=== PATIENT | male | born 1960 | race Caucasian/White ===

== ENCOUNTER 2017-07-01 07:18 | Emergency (ER) | payer MEDICAID ==
--- NOTE | 2017-07-01 08:19 | EKG REPORT ---
SEVERITY:- ABNORMAL ECG - ATRIAL-SENSED VENTRICULAR-PACED COMPLEXES MINIMAL ST DEPRESSION : Confirmed by: Zachery Mejia MD 01-Jul-2017 08:18:12
[2017-07-01 08:57] LABS: HEMATOCRIT 41.5 % (37.9-51.0); HEMOGLOBIN 14.2 g/dL (13.5-17.0); HGB HCT DIFFERENCE 1.1; MEAN CORPUSCULAR HEMOGLOBIN 31.6 pg (27.0-33.4); MEAN CORPUSCULAR HGB CONC 34.2 g/dL (32.0-36.0); MEAN CORPUSCULAR VOLUME 92 fl (80-97); RED BLOOD COUNT 4.49 10^6/uL (4.35-5.55); WHITE BLOOD COUNT 15.9 10^3/uL (4.0-10.5)
[2017-07-01 09:03] LABS: PROTHROMBIN TIME 20.7 SEC (11.4-15.4)
[2017-07-01 09:04] LABS: PARTIAL THROMBOPLASTIN TIME 31.1 SEC (23.5-35.8)
--- NOTE | 2017-07-01 09:11 | RADIOLOGY REPORT (SQ) ---
EXAM DESCRIPTION: WRIST RIGHT 3 VIEWS COMPLETED DATE/TIME: 07/01/2017 8:59 am REASON FOR STUDY: pain COMPARISON: None. NUMBER OF VIEWS: Three views. TECHNIQUE: AP, lateral, and oblique radiographic images acquired of the right wrist. LIMITATIONS: None. FINDINGS: MINERALIZATION: Normal. BONES: No acute fracture or dislocation. No worrisome bone lesions. Normal alignment. SOFT TISSUES: No soft tissue swelling. No foreign body. OTHER: No other significant finding. IMPRESSION: NEGATIVE STUDY OF THE RIGHT WRIST. NO RADIOGRAPHIC EVIDENCE OF ACUTE INJURY. TECHNICAL DOCUMENTATION: JOB ID: [id number] [employer]- All Rights Reserved
--- NOTE | 2017-07-01 09:12 | RADIOLOGY REPORT (SQ) ---
EXAM DESCRIPTION: CHEST PA/LAT COMPLETED DATE/TIME: 07/01/2017 8:59 am REASON FOR STUDY: swelling hx chf COMPARISON: December 2015 EXAM PARAMETERS: NUMBER OF VIEWS: two views TECHNIQUE: Digital Frontal and Lateral radiographic views of the chest acquired. RADIATION DOSE: NA LIMITATIONS: none FINDINGS: LUNGS AND PLEURA: No opacities, masses or pneumothorax. No pleural effusion. MEDIASTINUM AND HILAR STRUCTURES: No masses or contour abnormalities. HEART AND VASCULAR STRUCTURES: The configuration of the heart and mediastinal structures is unchanged BONES: No acute findings. HARDWARE: AICD device is unchanged in position. Patient is status post median sternotomy. OTHER: No other significant finding. IMPRESSION: No significant interval change. No acute findings. Other findings as noted above TECHNICAL DOCUMENTATION: JOB ID: [id number] [employer]- All Rights Reserved
[2017-07-01 09:14] LABS: ALANINE AMINOTRANSFERASE 29 U/L (21-72); ALKALINE PHOSPHATASE 88 U/L (38-126); ANION GAP 12 (5-19); ASPARTATE AMINO TRANSFERASE 18 U/L (17-59); BILIRUBIN,DIRECT 0.6 mg/dL (0.0-0.4); BILIRUBIN,TOTAL 1.5 mg/dL (0.2-1.3); BLOOD UREA NITROGEN 19 mg/dL (7-20); CALCIUM 9.3 mg/dL (8.4-10.2); CARBON DIOXIDE 29 mmol/L (22-30); CHLORIDE 98 mmol/L (98-107); CREATININE RESULT 0.92 mg/dL (0.52-1.25); GLUCOSE 175 mg/dL (75-110); LIPASE 59.2 U/L (23-300); POTASSIUM 3.8 mmol/L (3.6-5.0); SODIUM 138.7 mmol/L (137-145); TOTAL PROTEIN 6.5 g/dL (6.3-8.2); URIC ACID 8.8 mg/dL (3.5-8.5)
[2017-07-01 09:15] LABS: BAND NEUTROPHILS % (MANUAL) 2 % (3-5); BASOPHILS % (MANUAL) 0 % (0-2); EOSINOPHILS % (MANUAL) 0 % (0-6); LYMPHOCYTES % (MANUAL) 3 % (13-45); TOTAL CELLS COUNTED 100
[2017-07-01 09:17] LABS: ANISOCYTOSIS SLIGHT; HYPOCHROMASIA SLIGHT
[2017-07-01] MEDS ORDERED: ONDANSETRON HCL INJ/PF 4 MG/2 ML SDV IV ONE (10:42)
[2017-07-01] MEDS ORDERED: MORPHINE SULFATE 10 MG/ML INJ IV ONE (10:42)
[2017-07-01] MEDS ORDERED: DEXAMETHASONE SOD PHOS INJ 10 MG/1 ML VIAL IV ONE (10:44)
--- NOTE | 2017-07-01 11:10 | ER Document Report ---
ED General - General Chief Complaint: Pain All Over Stated Complaint: BODY SWELLING Time Seen by Provider: 07/01/17 07:58 TRAVEL OUTSIDE OF THE [place] IN LAST 30 DAYS: No - HPI Patient complains to provider of: Swelling right wrist pain Notes: Patient coming in stating that his body is swelling. Patient states a history of congestive heart failure. Patient states compliance with his medications. Patient also states having pain in his wrist. Patient states recently diagnosed with gout was on prednisone stopped approximately 1 week 2 weeks prior to visit today. Patient otherwise denies any other symptoms except for nausea vomiting diarrhea. Patient denies fevers chills denies chest pain abdominal pain. Patient denies any recent antibiotics denies any recent travel. Patient is resting comfortably upon my evaluation. - Related Data Allergies/Adverse Reactions: Penicillins Allergy (Verified 11/01/14 07:32) Past Medical History - Social History Smoking Status: Never Smoker Chew tobacco use (# tins/day): No Frequency of alcohol use: None Drug Abuse: None Family History: Hypertension, Malignancy Patient has suicidal ideation: No Patient has homicidal ideation: No - Past Medical History Cardiac Medical History: Reports: Hx Congestive Heart Failure, Hx Coronary Artery Disease, Hx Heart Attack, Hx Hypercholesterolemia, Hx Hypertension Neurological Medical History: Denies: Hx Seizures Endocrine Medical History: Reports: Hx Diabetes Mellitus Type 2 Renal/ Medical History: Denies: Hx Peritoneal Dialysis Musculoskeltal Medical History: Reports Hx Gout Psychiatric Medical History: Denies: Hx Depression Past Surgical History: Reports: Hx Cardiac Surgery - bypass, Hx Pacemaker - w/ defib - Immunizations Immunizations up to date: Yes Hx Diphtheria, Pertussis, Tetanus Vaccination: Yes Hx Pneumococcal Vaccination: 05/28/14 Review of Systems - Review of Systems Constitutional: No symptoms reported EENT: No symptoms reported Cardiovascular: Other - Swelling Respiratory: No symptoms reported Gastrointestinal: No symptoms reported Genitourinary: No symptoms reported Male Genitourinary: No symptoms reported Musculoskeletal: Other - Wrist pain Skin: No symptoms reported Hematologic/Lymphatic: No symptoms reported Neurological/Psychological: No symptoms reported Physical Exam - Vital signs Vitals: Temp Pulse Resp BP Pulse Ox 97.6 F 91 16 99/64 L 98 07/01/17 07:26 07/01/17 07:26 07/01/17 07:26 07/01/17 07:26 07/01/17 07:26 Interpretation: Normal - General General appearance: Appears well, Alert - HEENT Head: Normocephalic, Atraumatic Eyes: Normal Pupils: PERRL - Respiratory Respiratory status: No respiratory distress Chest status: Nontender Breath sounds: Normal Chest palpation: Normal - Cardiovascular Rhythm: Regular Heart sounds: Normal auscultation Murmur: No - Abdominal Inspection: Normal Distension: No distension Bowel sounds: Normal Tenderness: Nontender Organomegaly: No organomegaly - Back Back: Normal, Nontender - Extremities General upper extremity: Normal inspection, Nontender, Normal color, Normal ROM , Normal temperature General lower extremity: Normal inspection, Tender - Right wrist is extremely tender there is some swelling along the ulna no erythema left wrist is unaffected., Normal color, Normal ROM, Normal temperature, Normal weight bearing. No: Dion's sign - Neurological Neuro grossly intact: Yes Cognition: Normal Orientation: AAOx4 Mendez Coma Scale Eye Opening: Spontaneous Mendez Coma Scale Verbal: Oriented [place] Coma Scale Motor: Obeys Commands Mendez Coma Scale Total: 15 Speech: Normal Motor strength normal: LUE, RUE, LLE, RLE Sensory: Normal - Psychological Associated symptoms: Normal affect, Normal mood - Skin Skin Temperature: Warm Skin Moisture: Dry Skin Color: Normal Course - Re-evaluation Re-evalutation: 07/01/17 14:02 Lab work does not show any critical pathology. X-rays are also negative no signs of CHF exacerbation. Patient's weight today is approximately 2 pounds heavier than his previous weight. Explained the patient to continue to watch how much water he drinks to continue his diuretics. Uric acid is elevated slightly consistent with gout flare patient states pain in the wrist is consistent with gout in the past. Will treat with steroids and pain medication. Patient states understanding to follow-up with his primary care physician will be discharged home - Vital Signs Vital signs: Temp Pulse Resp BP Pulse Ox 97.8 F 88 18 124/65 98 07/01/17 11:47 07/01/17 11:47 07/01/17 11:47 07/01/17 11:47 07/01/17 11:47 - Laboratory Result Diagrams: 07/01/17 08:35 07/01/17 08:35 Laboratory results interpreted by me: 07/01/17 07/01/17 07/01/17 07:42 08:35 08:35 WBC 15.9 H RDW 15.0 H Seg Neuts % (Manual) 86 H Band Neutrophils % 2 L Lymphocytes % (Manual) 3 L Abs Neuts (Manual) 14.0 H PT Glucose 175 H POC Glucose 191 H Uric Acid 8.8 H Total Bilirubin 1.5 H Direct Bilirubin 0.6 H NT-Pro-B Natriuret Pep 07/01/17 07/01/17 08:35 08:35 WBC RDW Seg Neuts % (Manual) Band Neutrophils % Lymphocytes % (Manual) Abs Neuts (Manual) PT 20.7 H Glucose POC Glucose Uric Acid Total Bilirubin Direct Bilirubin NT-Pro-B Natriuret Pep 970 H Discharge - Discharge Clinical Impression: Subtherapeutic international normalized ratio (INR) Gout Qualifiers: Gout site: wrist Gout etiology: unspecified cause Chronicity: acute Laterality : right Qualified Code(s): M10.9 - Gout, unspecified Atrial fibrillation Qualifiers: Atrial fibrillation type: unspecified Qualified Code(s): I48.91 - Unspecified atrial fibrillation Condition: Good Disposition: HOME, SELF-CARE Instructions: Gout ([facility]), Gout Diet ([facility]), Oral Narcotic Medication ([facility]) Additional Instructions: Your laboratory studies today did not show any critical pathology. He did have elevation of uric acid more likely your wrist pain is due to gout flare. We will start you on steroids and pain medication follow-up with your primary care physician for further evaluation. Your INR today was 1.8. I will suggest tonight taking 7.5 mg of your Coumadin did continue on your regular dosing schedule. There is no signs of overt congestive heart failure on the laboratory studies are on your chest x-ray. You have gained approximately 2 pounds of weight since her last visit here to the ER. At this time do not think this is enough that I will require further diuresis or change of your torsemide. Prescriptions: Hydrocodone/Acetaminophen [Hydrocodon-Acetaminophen 5-325] 1 each PO Q6 #20 tablet Prednisone [Deltasone] 60 mg PO DAILY #24 tablet
[2017-07-01 11:49] VITALS: BP 124/65
== END 2017-07-01 11:49 | disposition home or self-care (01) ==
LOC: ER 07:18
DX: R79.1 Abnormal coagulation profile (principal); M10.9 Gout, unspecified; I48.91 Unspecified atrial fibrillation; M79.1 Myalgia; I50.9 Heart failure, unspecified; I25.10 Atherosclerotic heart disease of native coronary artery without angina pectoris; E78.00 Pure hypercholesterolemia, unspecified; I11.0 Hypertensive heart disease with heart failure; Z95.810 Presence of automatic (implantable) cardiac defibrillator; Z88.0 Allergy status to penicillin; I25.2 Old myocardial infarction
CPT/HCPCS: 93005; 99284; 96374; 96375; 36415; 82962; 83690; 84550; 85025; 85610; 85730; 80053; 84484; 83880; 71020; 73110; 93010; J2270; J2405; J1100

== ENCOUNTER → 2017-07-13 | Outpatient (CLI) | payer MEDICAID, MEDICARE ==
[2017-07-13 09:06] LABS: ABSOLUTE BASOPHILS # (AUTO) 0.1 10^3/uL (0.0-0.2); ABSOLUTE EOSINOPHILS # (AUTO) 0.1 10^3/uL (0.0-0.6); ABSOLUTE LYMPHOCYTES (AUTO) 1.6 10^3/uL (0.5-4.7); ABSOLUTE MONOCYTES (AUTO) 0.7 10^3/uL (0.1-1.4); ABSOLUTE NEUT (AUTO) 5.8 10^3/uL (1.7-8.2); BASOPHILS % (AUTO) 0.7 % (0-2); EOSINOPHILS % (AUTO) 1.6 % (0-6); HEMATOCRIT 38.4 % (37.9-51.0); HEMOGLOBIN 13.6 g/dL (13.5-17.0); HGB HCT DIFFERENCE 2.4; LYMPHOCYTES % (AUTO) 19.1 % (13-45); MEAN CORPUSCULAR HEMOGLOBIN 32.3 pg (27.0-33.4); MEAN CORPUSCULAR HGB CONC 35.4 g/dL (32.0-36.0); MEAN CORPUSCULAR VOLUME 91 fl (80-97); MONOCYTES % (AUTO) 8.7 % (3-13); RED BLOOD COUNT 4.21 10^6/uL (4.35-5.55); RED CELL DISTRIBUTION WIDTH 15.4 % (11.5-14.0); SEGMENTED NEUTROPHILS % (AUTO) 69.9 % (42-78); WHITE BLOOD COUNT 8.3 10^3/uL (4.0-10.5)
[2017-07-13 09:47] LABS: ALANINE AMINOTRANSFERASE 39 U/L (21-72); ALBUMIN 3.9 g/dL (3.5-5.0); ALKALINE PHOSPHATASE 79 U/L (38-126); ANION GAP 8 (5-19); ASPARTATE AMINO TRANSFERASE 16 U/L (17-59); BILIRUBIN,DIRECT 0.5 mg/dL (0.0-0.4); BLOOD UREA NITROGEN 22 mg/dL (7-20); CALCIUM 9.3 mg/dL (8.4-10.2); CARBON DIOXIDE 32 mmol/L (22-30); CHLORIDE 96 mmol/L (98-107); CREATINE KINASE 61 U/L (55-170); CREATININE RESULT 1.09 mg/dL (0.52-1.25); GLUCOSE 91 mg/dL (75-110); MAGNESIUM 1.8 mg/dL (1.6-2.3); PHOSPHORUS 2.6 mg/dL (2.5-4.5); POTASSIUM 3.6 mmol/L (3.6-5.0); SODIUM 135.6 mmol/L (137-145); TOTAL PROTEIN 6.3 g/dL (6.3-8.2); URIC ACID 12.4 mg/dL (3.5-8.5)
[2017-07-14 09:34] LABS: APPEARANCE,URINE CLEAR; BILIRUBIN,URINE NEGATIVE (NEGATIVE); GLUCOSE, URINE NEGATIVE (NEGATIVE); KETONES,URINE NEGATIVE (NEGATIVE); LEUKOCYTE ESTERASE,URINE NEGATIVE (NEGATIVE); NITRITE,URINE NEGATIVE (NEGATIVE); PROTEIN,URINE NEGATIVE (NEGATIVE); URINE SPECIFIC GRAVITY 1.003; UROBILINOGEN,URINE NEGATIVE mg/dL (<2.0)
== END ==
LOC: OD 08:20
PROVIDERS: ATTEND Internal Medicine Nephrology
DX: I12.9 Hypertensive chronic kidney disease with stage 1 through stage 4 chronic kidney disease, or unspecified chronic kidney disease (principal); N18.4 Chronic kidney disease, stage 4 (severe); E11.9 Type 2 diabetes mellitus without complications; I50.9 Heart failure, unspecified
CPT/HCPCS: 36415; 80053; 81001; 82550; 83735; 84100; 84443; 84550; 85025

== ENCOUNTER → 2017-08-02 | Outpatient (CLI) | payer MEDICAID, MEDICARE ==
[2017-08-02 09:38] LABS: ABSOLUTE EOSINOPHILS # (AUTO) 0.1 10^3/uL (0.0-0.6); ABSOLUTE LYMPHOCYTES (AUTO) 1.6 10^3/uL (0.5-4.7); ABSOLUTE MONOCYTES (AUTO) 0.9 10^3/uL (0.1-1.4); BASOPHILS % (AUTO) 0.6 % (0-2); EOSINOPHILS % (AUTO) 0.7 % (0-6); HEMATOCRIT 36.4 % (37.9-51.0); HEMOGLOBIN 12.8 g/dL (13.5-17.0); LYMPHOCYTES % (AUTO) 21.5 % (13-45); MEAN CORPUSCULAR HEMOGLOBIN 32.5 pg (27.0-33.4); MEAN CORPUSCULAR HGB CONC 35.3 g/dL (32.0-36.0); MEAN CORPUSCULAR VOLUME 92 fl (80-97); MONOCYTES % (AUTO) 11.7 % (3-13); RED BLOOD COUNT 3.96 10^6/uL (4.35-5.55); RED CELL DISTRIBUTION WIDTH 15.7 % (11.5-14.0); SEGMENTED NEUTROPHILS % (AUTO) 65.5 % (42-78); WHITE BLOOD COUNT 7.6 10^3/uL (4.0-10.5)
[2017-08-02 09:40] LABS: APPEARANCE,URINE CLEAR; BILIRUBIN,URINE NEGATIVE (NEGATIVE); GLUCOSE, URINE NEGATIVE (NEGATIVE); KETONES,URINE NEGATIVE (NEGATIVE); LEUKOCYTE ESTERASE,URINE NEGATIVE (NEGATIVE); NITRITE,URINE NEGATIVE (NEGATIVE); PROTEIN,URINE NEGATIVE (NEGATIVE); URINE SPECIFIC GRAVITY 1.004; UROBILINOGEN,URINE NEGATIVE mg/dL (<2.0)
[2017-08-02 10:05] LABS: ALANINE AMINOTRANSFERASE 42 U/L (21-72); ALBUMIN 4.4 g/dL (3.5-5.0); ALKALINE PHOSPHATASE 57 U/L (38-126); ANION GAP 15 (5-19); ASPARTATE AMINO TRANSFERASE 21 U/L (17-59); BILIRUBIN,DIRECT 0.5 mg/dL (0.0-0.4); BILIRUBIN,TOTAL 0.8 mg/dL (0.2-1.3); BLOOD UREA NITROGEN 23 mg/dL (7-20); CALCIUM 9.2 mg/dL (8.4-10.2); CARBON DIOXIDE 33 mmol/L (22-30); CHLORIDE 98 mmol/L (98-107); CREATINE KINASE 32 U/L (55-170); CREATININE RESULT 1.09 mg/dL (0.52-1.25); GLUCOSE 65 mg/dL (75-110); MAGNESIUM 1.6 mg/dL (1.6-2.3); PHOSPHORUS 3.8 mg/dL (2.5-4.5); POTASSIUM 4.1 mmol/L (3.6-5.0); SODIUM 145.8 mmol/L (137-145)
== END ==
LOC: OD 07:47
PROVIDERS: ATTEND Internal Medicine Nephrology
DX: E11.22 Type 2 diabetes mellitus with diabetic chronic kidney disease (principal); I12.0 Hypertensive chronic kidney disease with stage 5 chronic kidney disease or end stage renal disease; N18.4 Chronic kidney disease, stage 4 (severe); I50.9 Heart failure, unspecified; I72.0 Aneurysm of carotid artery
CPT/HCPCS: 36415; 80053; 81001; 82550; 83735; 83970; 84100; 84443; 84550; 85025

== ENCOUNTER 2017-11-20 09:55 | Inpatient (IN) | payer MEDICARE ==
[2017-11-20] MEDS ORDERED: BENZONATATE 100 MG CAPSULE PO ONE (10:18)
[2017-11-20] MEDS ORDERED: ALBUTEROL SULFATE 0.083% NEB 2.5 MG/3 ML AMPUL NEB ONE (10:19)
--- NOTE | 2017-11-20 10:19 | ER Document Report ---
ED General - General Mode of Arrival: Ambulatory Information source: Patient TRAVEL OUTSIDE OF THE [place] 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 Patient also complains of flu like symptoms including nausea, vomiting, decreased appetite, cough, dizziness, fatigue and abdominal pain. Patient states these symptoms were onset 2 weeks ago and he has been taking over the counter Tamiflu. Patient denies fever, chest pain, or shortness of breath. Patient is currently prescribed Coumadin, Digoxin, and Metoprolol and 10 mg of his unspecified thyroid medication. (DARRIN JIMÉNEZ) - Related Data Allergies/Adverse Reactions: Penicillins Allergy (Verified 11/01/14 07:32) Past Medical History - General Information source: Patient - Social History Smoking Status: Former Smoker Cigarette use (# per day): No Chew tobacco use (# tins/day): No Smoking Education Provided: No Frequency of alcohol use: Occasional Drug Abuse: None Family History: Hypertension, Malignancy - Past Medical History Cardiac Medical History: Reports: Hx Congestive Heart Failure, Hx Coronary Artery Disease, Hx Heart Attack, Hx Hypercholesterolemia, Hx Hypertension Endocrine Medical History: Reports: Hx Diabetes Mellitus Type 2 Musculoskeltal Medical History: Reports Hx Gout Past Surgical History: Reports: Hx Cardiac Surgery - bypass, Hx Pacemaker - w/ defib - Immunizations Immunizations up to date: Yes Hx Diphtheria, Pertussis, Tetanus Vaccination: Yes Hx Pneumococcal Vaccination: 05/28/14 <DARRIN JIMÉNEZ - Last Filed: 11/20/17 18:55> Review of Systems - Review of Systems Constitutional: See HPI, Weakness EENT: No symptoms reported Cardiovascular: See HPI, Dizziness Respiratory: See HPI, Cough Gastrointestinal: See HPI, Nausea, Vomiting, Poor appetite Genitourinary: No symptoms reported Male Genitourinary: No symptoms reported Musculoskeletal: No symptoms reported Skin: No symptoms reported Hematologic/Lymphatic: No symptoms reported Neurological/Psychological: No symptoms reported -: Yes All other systems reviewed and negative <TINOJIMFELTON - Last Filed: 11/20/17 18:55> Physical Exam <DARRIN JIMÉNEZ - Last Filed: 11/20/17 18:55> <ARIE WOODALL - Last Filed: 11/20/17 18:57> - Vital signs Vitals: Temp Pulse Resp BP Pulse Ox 98.1 F 95 20 105/63 100 11/20/17 10:04 11/20/17 10:04 11/20/17 10:04 11/20/17 10:04 11/20/17 10:04 - Notes Notes: GENERAL: Alert, interacts well. No acute distress. HEAD: Normocephalic, atraumatic. EYES: Pupils equal, round, and reactive to light. Extraocular movements intact. ENT: Oral mucosa moist, tongue midline. NECK: Full range of motion. Supple. Trachea midline. LUNGS: Dry non-productive cough. Clear to auscultation bilaterally, no wheezes, rales, or rhonchi. No respiratory distress. HEART: Regular rate and rhythm. No murmurs, gallops, or rubs. ABDOMEN: Soft, Left sided tenderness to palpation. Non-distended. Bowel sounds present in all 4 quadrants. EXTREMITIES: Moves all 4 extremities spontaneously. No edema, radial and dorsalis pedis pulses 2/4 bilaterally. No cyanosis. NEUROLOGICAL: Alert and oriented x3. Normal speech. Patellar DTRs 2+ bilaterally. PSYCH: Normal affect, normal mood. SKIN: Warm, dry, normal turgor. No rashes or lesions noted. (TINODARRIN) Course - Laboratory Result Diagrams: 11/20/17 11:45 11/20/17 11:45 <DARRIN JIMÉNEZ - Last Filed: 11/20/17 18:55> - Laboratory Result Diagrams: 11/20/17 11:45 11/20/17 11:45 <ARIE WOODALL - Last Filed: 11/20/17 18:57> - Re-evaluation Re-evalutation: 11/20/17 13:09 Still has persistently low blood pressure, still only has some mild nausea but is not altered. Able to interact well. Patient will be given more fluids, awaiting thyroid function studies and digoxin level. There is acute renal failure. 11/20/17 15:59 CBC shows leukocytosis of 12.4, no anemia, platelet count is normal, CMP shows acute renal failure with a BUN of 41 and creatinine of 2.28, thyroid functions are still pending, digoxin is therapeutic at 1.85, PT, PTT and INR are all too high to measure. This is likely coming from his acute renal failure. I do not have a source for his acute renal failure at this time. Given how markedly elevated the patient's INR is patient will be given vitamin K 10 mg and also given FFP to try and reverse him a little bit more quickly. I did discuss the patient with with Dr. Perdomo the hospitalist who agrees to admit the patient to her service on the IMCU. I do not know why the patient is hypotensive, I suspect at this time it is because his acute renal failure is keeping him from appropriately processing his blood pressure medications. He does have a pacemaker and it is functioning appropriately, patient will be continued to be monitored. No evidence of active bleeding at this time. No suspicion for acute intra-abdominal process. Patient actually states that his abdominal pain that he used to have when coughing is now better. Tessalon Perles and breathing treatment did not improve his cough is all. Patient will be admitted to the hospital. I did discuss the patient with Dr. 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 11/20/17 18:56 (ARIE WOODALL) - Vital Signs Vital signs: Temp Pulse Resp BP Pulse Ox 98.1 F 90 15 98/84 L 100 11/20/17 18:30 11/20/17 18:46 11/20/17 18:46 11/20/17 18:46 11/20/17 18:46 - Laboratory Laboratory results interpreted by me: 11/20/17 11/20/17 11/20/17 11:45 11:45 14:23 WBC 12.4 H RDW 16.0 H Seg Neutrophils % 78.8 H Lymphocytes % 8.4 L Absolute Neutrophils 9.8 H PT > 120.0 H* APTT > 235.0 H* Sodium 134.6 L Chloride 97 L BUN 41 H Creatinine 2.28 H Est GFR ( Amer) 36 L Est GFR (Non-Af Amer) 30 L Glucose 122 H Total Bilirubin 1.5 H Direct Bilirubin 1.1 H ALT 12 L - EKG Interpretation by Me Additional EKG results interpreted by me: 11/20/17 18:56 EKG shows paced rhythm at a rate of 81, no ST segment elevations, no significant ST segment depressions, ventricular delay consistent with ventricular single ventricle pace maker per my interpretation. (ARIE WOODALL) Discharge <DARRIN JIMÉNEZ - Last Filed: 11/20/17 18:55> - Discharge Admitting Provider: Hospitalist - [facility] Unit Admitted: IMCU <ARIE WOODALL - Last Filed: 11/20/17 18:57> - Discharge Clinical Impression: Supratherapeutic INR Acute renal failure Qualifiers: Acute renal failure type: unspecified Qualified Code(s): N17.9 - Acute kidney failure, unspecified Hypotension Qualifiers: Hypotension type: unspecified hypotension type Qualified Code(s): I95.9 - Hypotension, unspecified Condition: Fair Disposition: ADMITTED INPATIENT Scribe Attestation: 11/20/17 18:57 I personally performed the services described in the documentation, reviewed and edited the documentation which was dictated to the scribe in my presence, and it accurately records my words and actions. (ARIE WOODALL) Scribe Documentation - Scribe Written by Erin:: Erin Ruiz, 11/20/2017 10:33 acting as scribe for :: Opal <DARRIN JIMÉNEZ - Last Filed: 11/20/17 18:55>
--- NOTE | 2017-11-20 10:42 | RADIOLOGY REPORT (SQ) ---
EXAM DESCRIPTION: CHEST PA/LAT COMPLETED DATE/TIME: 11/20/2017 10:32 am REASON FOR STUDY: cough, SOB COMPARISON: None. NUMBER OF VIEWS: Two view. TECHNIQUE: Frontal and lateral radiographic views of the chest acquired. LIMITATIONS: None. FINDINGS: LUNGS AND PLEURA: No opacities, masses or pneumothorax. No pleural effusion. MEDIASTINUM AND HILAR STRUCTURES: No masses. No contour abnormalities. HEART AND VASCULAR STRUCTURES: Heart normal in size and contour. No evidence for failure. BONES: No acute findings. HARDWARE: Hardware/support device(s) in appropriate and expected location. OTHER: No other significant finding. IMPRESSION: NO SIGNIFICANT RADIOGRAPHIC FINDING IN THE CHEST. HARDWARE/SUPPORT DEVICE(S) IN APPROPRIATE AND EXPECTED LOCATION. TECHNICAL DOCUMENTATION: JOB ID: [id number] [employer]- All Rights Reserved
[2017-11-20] MEDS ORDERED: NORMAL SALINE 1000 ML 1,000 ML IV ONE ×2 (11:06→17:37)
[2017-11-20] MEDS ORDERED: ONDANSETRON 4 MG TAB.RAPDIS PO ONE (11:14)
[2017-11-20 11:58] LABS: ABSOLUTE BASOPHILS # (AUTO) 0.1 10^3/uL (0.0-0.2); ABSOLUTE EOSINOPHILS # (AUTO) 0.2 10^3/uL (0.0-0.6); ABSOLUTE MONOCYTES (AUTO) 1.3 10^3/uL (0.1-1.4); ABSOLUTE NEUT (AUTO) 9.8 10^3/uL (1.7-8.2); BASOPHILS % (AUTO) 0.6 % (0-2); EOSINOPHILS % (AUTO) 1.9 % (0-6); HEMATOCRIT 40.9 % (37.9-51.0); HEMOGLOBIN 13.8 g/dL (13.5-17.0); LYMPHOCYTES % (AUTO) 8.4 % (13-45); MEAN CORPUSCULAR HEMOGLOBIN 28.1 pg (27.0-33.4); MEAN CORPUSCULAR HGB CONC 33.7 g/dL (32.0-36.0); MEAN CORPUSCULAR VOLUME 83 fl (80-97); MONOCYTES % (AUTO) 10.3 % (3-13); PLATELET COUNT 249 10^3/uL (150-450); RED BLOOD COUNT 4.91 10^6/uL (4.35-5.55); SEGMENTED NEUTROPHILS % (AUTO) 78.8 % (42-78); TOTAL CELLS COUNTED % (AUTO) 100 %; WHITE BLOOD COUNT 12.4 10^3/uL (4.0-10.5)
[2017-11-20 12:31] LABS: ALANINE AMINOTRANSFERASE 12 U/L (21-72); ALBUMIN 3.7 g/dL (3.5-5.0); ALKALINE PHOSPHATASE 92 U/L (38-126); ANION GAP 11 (5-19); ASPARTATE AMINO TRANSFERASE 29 U/L (17-59); BILIRUBIN,DIRECT 1.1 mg/dL (0.0-0.4); BILIRUBIN,TOTAL 1.5 mg/dL (0.2-1.3); BLOOD UREA NITROGEN 41 mg/dL (7-20); CALCIUM 9.2 mg/dL (8.4-10.2); CARBON DIOXIDE 27 mmol/L (22-30); CHLORIDE 97 mmol/L (98-107); GLUCOSE 122 mg/dL (75-110); POTASSIUM 3.7 mmol/L (3.6-5.0); SODIUM 134.6 mmol/L (137-145); TOTAL PROTEIN 6.7 g/dL (6.3-8.2)
[2017-11-20 14:51] LABS: PARTIAL THROMBOPLASTIN TIME > 235.0 SEC (23.5-35.8); PROTHROMBIN TIME > 120.0 SEC (11.4-15.4)
[2017-11-20] MEDS ORDERED: PHYTONADIONE INJ 10 MG/1 ML AMPULE SUBCUT ONE (15:30)
[2017-11-20] MEDS ORDERED: NORMAL SALINE 250 ML IV PRN ×3 (15:30→16:01)
[2017-11-20 15:59] LABS: FREE T3 3.67 pg/mL (2.77-5.27); FREE T4 (FREE THYROXINE) 1.54 ng/dL (0.78-2.19); THYROID STIMULATING HORMONE 0.63 uIU/mL (0.47-4.68)
[2017-11-20] MEDS ORDERED: NORMAL SALINE 1000 ML 1,000 ML IV PRN (16:00)
[2017-11-20] MEDS ORDERED: DEXTROSE 50%-WATER 25 GM/50 ML DISP.SYRIN IV PRN ×2 (17:30)
[2017-11-20] MEDS ORDERED: GLUCAGON,HUMAN RECOMB 1 MG INJ IM PRN (17:30)
[2017-11-20] MEDS ORDERED: DEXTROSE 40% GEL 15 GM TUBE PO PRN ×2 (17:30)
[2017-11-20] MEDS ORDERED: IPRATROPIUM/ALBUTEROL 0.5-2.5 MG/3 ML AMPUL NEB PRN ×2 (17:30)
[2017-11-20] MEDS ORDERED: MIDODRINE HCL 5 MG TABLET PO ONE ×2 (17:38→19:00)
[2017-11-20] MEDS ORDERED: IPRATROPIUM/ALBUTEROL 0.5-2.5 MG/3 ML AMPUL NEB ONE (18:17)
[2017-11-20] MEDS ORDERED: GUAIFENESIN SYRP 200 MG/10 ML UDC PO ONE (18:48)
--- NOTE | 2017-11-20 18:58 | PDOC CONSULTATION ---
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 Patient also complains of flu like symptoms including nausea, vomiting, decreased appetite, cough, dizziness, fatigue and abdominal pain. Patient states these symptoms were onset 2 weeks ago and he has been taking over the counter Tamiflu. Patient denies fever, chest pain, or shortness of breath. Patient on questioning denied any chest pain. He denied any recent defibrillator discharges. Past Medical History Cardiac Medical History: Reports: Congestive Heart Failure, Coronary Artery Disease, Myocardial Infarction, Hyperlipidema, Hypertension Neurological Medical History: Denies: Seizures Endocrine Medical History: Reports: Diabetes Mellitus Type 2 Musculoskeltal Medical History: Reports: Gout Psychiatric Medical History: Denies: Depression Past Surgical History Past Surgical History: Reports: Pacemaker - w/ defib Social History Information Source: Patient Smoking Status: Former Smoker Frequency of Alcohol Use: None Hx Recreational Drug Use: No Hx Prescription Drug Abuse: No - Advance Directive Resuscitation Status: Full Code Family History Family History: Hypertension, Malignancy Parental Family History Reviewed: Yes Children Family History Reviewed: Yes Sibling(s) Family History Reviewed.: Yes Medication/Allergy Home Medications: Allopurinol [Zyloprim 300 mg Tablet] 300 mg PO QAM 11/20/17 Atorvastatin Calcium [Lipitor 80 mg Tablet] 80 mg PO QHS 11/20/17 Digoxin [Lanoxin 0.125 mg Tablet] 0.125 mg PO BID 11/20/17 Ergocalciferol (Vitamin D2) [Drisdol 50,000 unit (1.25MG) Capsule] 50,000 units PO SA 11/20/17 Famotidine [Pepcid 20 mg Tablet] 20 mg PO DAILY 11/20/17 Glipizide [Glucotrol Xl 5 mg Tab.er] 5 mg PO DAILY 11/20/17 Methimazole [Tapazole 5 mg Tablet] 10 mg PO DAILY 11/20/17 Metoprolol Succinate [Toprol XL 100 mg Tablet] 100 mg PO QAM 11/20/17 Metoprolol Succinate [Toprol Xl 50 mg Tab.sr] 50 mg PO QPM 11/20/17 Multivitamin [Daily Multiple Vitamin] 1 tab PO DAILY 11/20/17 Ranitidine HCl [Zantac 150 mg Tablet] 150 mg PO BID 11/20/17 Sacubitril/Valsartan [Entresto 97 mg-103 mg Tablet] 1 tab PO DAILY 11/20/17 Temazepam [Restoril 15 mg Capsule] 15 mg PO QHS 11/20/17 Torsemide [Demadex 20 mg Tablet] 40 mg PO BID 11/20/17 Warfarin Sodium [Coumadin 5 mg Tablet] 5 mg PO QPM 11/20/17 Allergies/Adverse Reactions: Penicillins Allergy (Verified 11/01/14 07:32) Review of Systems Review of Systems: Please see history of present illness and past medical history as wall. Constitutional: Fatigue tiredness along with low-grade fever or chills reported. Head : No recent chronic headaches, recent head injury. Eyes: No recent eye pain, diplopia, redness, discharge, acute visual changes. Ears: No recent chronic ear pain, acute hearing loss, ear discharge. Oral cavity: No recent ulcerations, bleeding, oral cavity discomfort. Neck: No recent acute neck pain reported. Hematologic: No recent easy bruising or bleeding or hematologic malignancy reported. Lymphatic: No recent lymphatic malignancy, chronic lymphadenopathy reported yet Cardiovascular system review: See history of present illness. Respiratory system review: No recent chronic cough, hemoptysis, blood clots in the lungs reported. Mild Shortness of breath on exertion Gastrointestinal system review: Negative for any recent acute or chronic abdominal pain, hematemesis, melena, recent change in bowel habits. Genitourinary system review: No recent acute or chronic hematuria, flank pain, UTI etc. reported. Skin system review: Negative for any recent abnormal bruising, no rash, no pruritus reported. Neurologic: No prior history of strokes, mini strokes, seizure disorder. Psychologic: No history of major psychosis or major depression reported. Musculoskeletal: Minor aches and pains reported. No acute joint swelling reported. Endocrine: No recent polyuria, polydipsia, recent heat or cold intolerance. Physical Exam Vital Signs: Temp Pulse Resp BP Pulse Ox 98.1 F 90 15 98/84 L 100 11/20/17 18:30 11/20/17 18:46 11/20/17 18:46 11/20/17 18:46 11/20/17 18:46 Intake & Output 11/19/17 11/20/17 11/21/17 06:59 06:59 06:59 Intake Total 0 Balance 0 Exam: GENERAL: well-nourished and in no acute distress. Alert and oriented x3 HEAD: Atraumatic, normocephalic. EYES: Pupils equal round and reactive to light, extraocular movements intact, sclera anicteric, conjunctiva are normal. ENT: TMs normal, nares patent, oropharynx clear without exudates. Moist mucous membranes. No oral ulcerations or bleeding gums noted NECK: supple without lymphadenopathy. Trachea is central. No cervical or axillary lymphadenopathy noted. Carotids are 2+, JVD WNL LUNGS: Respiration seems nonlabored, no significant accessory muscle action noted. Breath sounds clear to auscultation bilaterally and equal noted. No wheezes rales or rhonchi noted. No significant dullness noted on percussion. CHEST: Palpation of the chest wall shows no significant chest wall tenderness. No other significant abnormalities noted. Defibrillator noted left-sided chest. HEART: [place] [employer], No PSH, 1/6 ROCHELLE aortic area, 1/6 bach systolic murmur mitral area, no rubs, no gallops. ABDOMEN: Soft, no significant tenderness appreciated, normoactive bowel sounds. No guarding, no rebound. No rigidity noted . No masses appreciated. EXTREMITIES: Pedal pulses are 1-2+, no calf tenderness noted. No clubbing or cyanosis.trace to 1+ pedal edema noted NEUROLOGICAL: Focused neurological exam showed no significant neurologic deficit. Normal speech, no focal weakness appreciated. PSYCH: Normal mood, normal affect. Judgment and insight within normal limits. SKIN: No significant ecchymosis, rash, ulcerations or signs of pruritus noted. MUSCULOSKELETAL EXAM: No significant joint swelling noted. Results EKG Comments: Ventricular paced rhythm with underlying atrial fibrillation Impressions: Chest X-Ray 11/20/17 10:18 IMPRESSION: NO SIGNIFICANT RADIOGRAPHIC FINDING IN THE CHEST. HARDWARE/SUPPORT DEVICE(S) IN APPROPRIATE AND EXPECTED LOCATION. Assessment & Plan - Diagnosis (1) Hypotension (arterial) Qualifiers: Hypotension type: unspecified hypotension type Qualified Code(s): I95.9 - Hypotension, unspecified Is this a current diagnosis for this admission?: Yes (2) Atrial fibrillation Qualifiers: Atrial fibrillation type: unspecified Qualified Code(s): I48.91 - Unspecified atrial fibrillation Is this a current diagnosis for this admission?: Yes (3) Cardiomyopathy Qualifiers: Cardiomyopathy type: unspecified Qualified Code(s): I42.9 - Cardiomyopathy , unspecified Is this a current diagnosis for this admission?: Yes (4) Coronary artery disease Qualifiers: Coronary Disease-Associated Artery/Lesion type: [place] artery [place] vs. transplanted heart: grindstone heart Associated angina: angina presence unspecified Qualified Code(s): I25.10 - Atherosclerotic heart disease of [place] coronary artery without angina pectoris Is this a current diagnosis for this admission?: Yes (5) Sleep disorder Is this a current diagnosis for this admission?: Yes (6) Congestive heart failure Qualifiers: Heart failure type: combined systolic and diastolic Heart failure chronicity: acute on chronic Qualified Code(s): I50.43 - Acute on chronic combined systolic (congestive) and diastolic (congestive) heart failure Is this a current diagnosis for this admission?: Yes (7) Supratherapeutic INR Is this a current diagnosis for this admission?: Yes - Notes Notes: Patient has history of severe dilated cardiomyopathy with severely depressed LVEF. He currently has a biventricular defibrillator in place. Currently patient in atrial fibrillation which he claims is chronic. At this point patient main problem is low blood pressure. Patient seems to be tolerating this low blood pressure reasonably well. Agree with Midodrin drip. If needed, consider vasopressin drip and possibly dopamine drip. Would recommend ruling out internal bleed, sepsis etc. as cause of hypotension. Patient's home medication were reviewed. He seems to be on a very good regimen for cardiomyopathy which would need to be restarted as soon as feasible. Because of patient's severe underlying cardiac condition including severe cardiomyopathy and now presenting with hypotension, recommend tertiary care referral and transfer, especially if patient deteriorates. Patient claims his local clearance cutter is Dr. Colon from [place]. - Time Time Spent: 30 to 50 Minutes - CODE STATUS was discussed, patient remains full code. Surrogate decision-maker unchanged. Multiple medical problems were addressed. More than 50% of the time spent coordinating care, discussing management plans with involved caregivers. Management plans discussed with involved personnels. Medical decision making was of moderate to high complexity , patient's has multiple comorbidities. Medications reviewed and adjusted accordingly: Yes
[2017-11-20 19:43] LABS: CREATINE KINASE MB 1.42 ng/mL (<4.55)
[2017-11-20 19:50] LABS: TROPONIN I 0.064 ng/mL
[2017-11-20] MEDS ORDERED: HYDROCODONE BIT/HOMATROPINE SYRUP 5 ML UDCUP PO PRN (19:53)
[2017-11-20 20:27] LABS: INTERNATIONAL RATION (INR) 5.21
[2017-11-20] MEDS ORDERED: CHLORPHENIRAMINE MALEATE 4 MG TABLET PO ONE (21:30)
[2017-11-20 22:27] LABS: APPEARANCE,URINE SLIGHTLY-CLOUDY; BILIRUBIN,URINE NEGATIVE (NEGATIVE); COLOR,URINE AMBER; GLUCOSE, URINE NEGATIVE (NEGATIVE); KETONES,URINE NEGATIVE (NEGATIVE); LEUKOCYTE ESTERASE,URINE NEGATIVE (NEGATIVE); NITRITE,URINE NEGATIVE (NEGATIVE); PROTEIN,URINE 30 mg/dL (NEGATIVE); URINE SPECIFIC GRAVITY 1.015
[2017-11-20] MEDS ORDERED: CHLORPHENIRAMINE MALEATE 4 MG TABLET ONE (22:29)
[2017-11-20 22:39] LABS: URINE AMPHETAMINES SCREEN NEGATIVE; URINE BARBITURATES SCREEN NEGATIVE; URINE BENZODIAZEPINES SCREEN NEGATIVE; URINE COCAINE SCREEN NEGATIVE; URINE MARIJUANA (THC) SCREEN NEGATIVE; URINE METHADONE SCREEN NEGATIVE; URINE PHENCYCLIDINE SCREEN NEGATIVE
[2017-11-20] MEDS: DOCUSATE SODIUM 100 MG CAPSULE PO SCH (23:01)
[2017-11-20 23:41] LABS: ABSOLUTE BASOPHILS # (AUTO) 0.1 10^3/uL (0.0-0.2); ABSOLUTE EOSINOPHILS # (AUTO) 0.6 10^3/uL (0.0-0.6); ABSOLUTE LYMPHOCYTES (AUTO) 0.9 10^3/uL (0.5-4.7); ABSOLUTE NEUT (AUTO) 7.3 10^3/uL (1.7-8.2); BASOPHILS % (AUTO) 0.9 % (0-2); EOSINOPHILS % (AUTO) 6.6 % (0-6); HEMATOCRIT 34.6 % (37.9-51.0); HEMOGLOBIN 11.9 g/dL (13.5-17.0); LYMPHOCYTES % (AUTO) 8.7 % (13-45); MEAN CORPUSCULAR HEMOGLOBIN 28.8 pg (27.0-33.4); MEAN CORPUSCULAR HGB CONC 34.4 g/dL (32.0-36.0); MEAN CORPUSCULAR VOLUME 84 fl (80-97); MONOCYTES % (AUTO) 9.8 % (3-13); PLATELET COUNT 220 10^3/uL (150-450); RED BLOOD COUNT 4.13 10^6/uL (4.35-5.55); RED CELL DISTRIBUTION WIDTH 16.5 % (11.5-14.0); TOTAL CELLS COUNTED % (AUTO) 100 %; WHITE BLOOD COUNT 9.8 10^3/uL (4.0-10.5)
[2017-11-21] MEDS ORDERED: NORMAL SALINE 1000 ML 1,000 ML IV ONE (00:11)
[2017-11-21 00:36] LABS: CREATINE KINASE MB 1.31 ng/mL (<4.55); TROPONIN I 0.063 ng/mL
--- NOTE | 2017-11-21 02:09 | PDOC H&P ---
History of Present Illness Admission Date/PCP: 11/20/17 16:26 TRANG DE PAZ Patient complains of: Nausea History of Present Illness: Patient is a 57 year old male with a history of atrial fibrillation on Coumadin , remote coronary artery bypass grafting with permanent pacemaker, congestive heart failure with ejection fraction 25%, gout, diabetes and hypertension, who is had 7-10 days of influenza marked by fever, cough, nausea, vomiting, diarrhea and anorexia treated with Tamiflu. He also admits to a gouty flare of the left elbow for which she is taking additional allopurinol. He otherwise denies changes in his medications, chest pain or palpitations. In the emergency room he is found to have hypotension with a blood pressure of 80/40, pulse of 76, acute renal failure with creatinine 2.2, and supratherapeutic INR beyond measured levels. He receives a 1 L normal saline challenge and 2 units of FFP and referred to the hospitalist for admission. Past Medical History Cardiac Medical History: Reports: Congestive Heart Failure, Coronary Artery Disease, Myocardial Infarction, Hyperlipidema, Hypertension Neurological Medical History: Denies: Seizures Endocrine Medical History: Reports: Diabetes Mellitus Type 2 Musculoskeltal Medical History: Reports: Gout Psychiatric Medical History: Denies: Depression Past Surgical History Past Surgical History: Reports: Coronary Artery Bypass Graft, Pacemaker - w/ defib Social History Information Source: Patient Lives with: Family Smoking Status: Former Smoker Frequency of Alcohol Use: None Hx Recreational Drug Use: No Drugs: None Hx Prescription Drug Abuse: No - Advance Directive Resuscitation Status: Full Code Family History Family History: Hypertension, Malignancy Parental Family History Reviewed: Yes Children Family History Reviewed: Yes Sibling(s) Family History Reviewed.: Yes Medication/Allergy Home Medications: Allopurinol [Zyloprim 300 mg Tablet] 300 mg PO QAM 11/20/17 Atorvastatin Calcium [Lipitor 80 mg Tablet] 80 mg PO QHS 11/20/17 Digoxin [Lanoxin 0.125 mg Tablet] 0.125 mg PO BID 11/20/17 Ergocalciferol (Vitamin D2) [Drisdol 50,000 unit (1.25MG) Capsule] 50,000 units PO SA 11/20/17 Famotidine [Pepcid 20 mg Tablet] 20 mg PO DAILY 11/20/17 Glipizide [Glucotrol Xl 5 mg Tab.er] 5 mg PO DAILY 11/20/17 Methimazole [Tapazole 5 mg Tablet] 10 mg PO DAILY 11/20/17 Metoprolol Succinate [Toprol XL 100 mg Tablet] 100 mg PO QAM 11/20/17 Metoprolol Succinate [Toprol Xl 50 mg Tab.sr] 50 mg PO QPM 11/20/17 Multivitamin [Daily Multiple Vitamin] 1 tab PO DAILY 11/20/17 Ranitidine HCl [Zantac 150 mg Tablet] 150 mg PO BID 11/20/17 Sacubitril/Valsartan [Entresto 97 mg-103 mg Tablet] 1 tab PO DAILY 11/20/17 Temazepam [Restoril 15 mg Capsule] 15 mg PO QHS 11/20/17 Torsemide [Demadex 20 mg Tablet] 40 mg PO BID 11/20/17 Warfarin Sodium [Coumadin 5 mg Tablet] 5 mg PO QPM 11/20/17 Allergies/Adverse Reactions: Penicillins Allergy (Verified 11/01/14 07:32) Review of Systems Constitutional: PRESENT: as per HPI, anorexia, fatigue, fever(s), weakness, weight loss Eyes: ABSENT: visual disturbances Ears: ABSENT: hearing changes Cardiovascular: ABSENT: chest pain, dyspnea on exertion, edema, orthropnea, palpitations Respiratory: PRESENT: as per HPI, cough Gastrointestinal: PRESENT: diarrhea, nausea, vomiting. ABSENT: abdominal pain, constipation, hematemesis, hematochezia Genitourinary: ABSENT: dysuria, hematuria Musculoskeletal: PRESENT: as per HPI. ABSENT: joint swelling Integumentary: ABSENT: rash, wounds Neurological: ABSENT: abnormal gait, abnormal speech, confusion, dizziness, focal weakness, syncope Psychiatric: ABSENT: anxiety, depression, homidical ideation, suicidal ideation Endocrine: ABSENT: cold intolerance, heat intolerance, polydipsia, polyuria Hematologic/Lymphatic: PRESENT: easy bleeding, easy bruising Physical Exam Vital Signs: Temp Pulse Resp BP Pulse Ox 98.0 F 90 21 H 108/65 96 11/20/17 19:48 11/20/17 18:46 11/21/17 01:45 11/21/17 01:45 11/21/17 01:44 Intake & Output 11/19/17 11/20/17 11/21/17 11:59 11:59 11:59 Intake Total 266 Balance 266 Weight 90.718 kg General appearance: PRESENT: mild distress, obese Head exam: PRESENT: atraumatic, normocephalic Eye exam: PRESENT: conjunctiva pink, EOMI, PERRLA. ABSENT: scleral icterus Ear exam: PRESENT: normal external ear exam Mouth exam: PRESENT: dry mucosa, tongue midline Neck exam: ABSENT: carotid bruit, JVD, lymphadenopathy, thyromegaly Respiratory exam: PRESENT: clear to auscultation [place]. ABSENT: rales, rhonchi, wheezes Cardiovascular exam: PRESENT: RRR. ABSENT: diastolic murmur, rubs, systolic murmur Pulses: PRESENT: normal dorsalis pedis pul Vascular exam: PRESENT: normal capillary refill GI/Abdominal exam: PRESENT: normal bowel sounds, soft. ABSENT: distended, guarding, mass, organolmegaly, rebound, tenderness Rectal exam: PRESENT: deferred Extremities exam: PRESENT: full ROM. ABSENT: calf tenderness, clubbing, pedal edema Neurological exam: PRESENT: alert, awake, oriented to person, oriented to place , oriented to time, oriented to situation, CN II-XII grossly intact. ABSENT: motor sensory deficit Psychiatric exam: PRESENT: appropriate affect, normal mood. ABSENT: homicidal ideation, suicidal ideation Skin exam: PRESENT: dry, intact, warm. ABSENT: cyanosis, rash Results Laboratory Results: 11/20/17 23:25 11/20/17 11/20/17 11/20/17 18:30 22:12 23:25 WBC 9.8 RBC 4.13 L Hgb 11.9 L Hct 34.6 L MCV 84 MCH 28.8 MCHC 34.4 RDW 16.5 H Plt Count 220 Seg Neutrophils % 74.0 Lymphocytes % 8.7 L Monocytes % 9.8 Eosinophils % 6.6 H Basophils % 0.9 Absolute Neutrophils 7.3 Absolute Lymphocytes 0.9 Absolute Monocytes 1.0 Absolute Eosinophils 0.6 Absolute Basophils 0.1 Magnesium 1.8 Urine Color FARA Urine Appearance SLIGHTLY-CLOUDY Urine pH 5.0 Ur Specific [place] 1.015 Urine Protein 30 H Urine Glucose (UA) NEGATIVE Urine Ketones NEGATIVE Urine Blood NEGATIVE Urine Nitrite NEGATIVE Ur Leukocyte Esterase NEGATIVE Urine WBC (Auto) 10 Urine RBC (Auto) 1 11/20/17 11/20/17 11/20/17 18:30 18:30 23:25 Creatine Kinase 70 76 CK-MB (CK-2) 1.42 Troponin I 0.064 11/20/17 23:25 Creatine Kinase CK-MB (CK-2) 1.31 Troponin I 0.063 Impressions: Chest X-Ray 11/20/17 10:18 IMPRESSION: NO SIGNIFICANT RADIOGRAPHIC FINDING IN THE CHEST. HARDWARE/SUPPORT DEVICE(S) IN APPROPRIATE AND EXPECTED LOCATION. Assessment & Plan - Diagnosis (1) Hypotension Qualifiers: Hypotension type: unspecified hypotension type Qualified Code(s): I95.9 - Hypotension, unspecified Is this a current diagnosis for this admission?: Yes Plan: Secondary to acute viral illness and subsequent hypovolemia, IV fluid challenge followed by Midrin, consider Wesley-Synephrine. (2) Acute renal failure Qualifiers: Acute renal failure type: unspecified Qualified Code(s): N17.9 - Acute kidney failure, unspecified Is this a current diagnosis for this admission?: Yes Plan: Multifactorial secondary to hypovolemia and additional allopurinol which is held avoiding nephrotoxic meds and doses reevaluate chemistry (3) Atrial fibrillation Qualifiers: Atrial fibrillation type: unspecified Qualified Code(s): I48.91 - Unspecified atrial fibrillation Is this a current diagnosis for this admission?: Yes Plan: Rate controlled continue current medication holding Coumadin follow-up INR (4) Supratherapeutic INR Is this a current diagnosis for this admission?: Yes Plan: Secondary to acute viral illness with anorexia and ongoing Coumadin use. FFP ordered follow-up INR resume Coumadin when INR at 2.5 or less - Time Time Spent: 50 to 70 Minutes - Inpatient Certification Medical Necessity: Need Close Monitoring Due to Risk of Patient Decompensation
[2017-11-21] MEDS: MIDODRINE HCL 5 MG TABLET PO SCH ×3 (02:26→15:14)
[2017-11-21 05:50] LABS: ABSOLUTE BASOPHILS # (AUTO) 0.1 10^3/uL (0.0-0.2); ABSOLUTE EOSINOPHILS # (AUTO) 0.8 10^3/uL (0.0-0.6); ABSOLUTE LYMPHOCYTES (AUTO) 0.8 10^3/uL (0.5-4.7); ABSOLUTE MONOCYTES (AUTO) 0.8 10^3/uL (0.1-1.4); ABSOLUTE NEUT (AUTO) 5.7 10^3/uL (1.7-8.2); EOSINOPHILS % (AUTO) 10.3 % (0-6); HEMATOCRIT 33.9 % (37.9-51.0); HEMOGLOBIN 11.5 g/dL (13.5-17.0); LYMPHOCYTES % (AUTO) 9.3 % (13-45); MEAN CORPUSCULAR HEMOGLOBIN 28.7 pg (27.0-33.4); MEAN CORPUSCULAR HGB CONC 34.1 g/dL (32.0-36.0); MEAN CORPUSCULAR VOLUME 84 fl (80-97); MONOCYTES % (AUTO) 9.8 % (3-13); PLATELET COUNT 214 10^3/uL (150-450); RED BLOOD COUNT 4.02 10^6/uL (4.35-5.55); RED CELL DISTRIBUTION WIDTH 16.4 % (11.5-14.0); SEGMENTED NEUTROPHILS % (AUTO) 69.6 % (42-78); TOTAL CELLS COUNTED % (AUTO) 100 %; WHITE BLOOD COUNT 8.2 10^3/uL (4.0-10.5)
[2017-11-21 06:10] LABS: ANION GAP 10 (5-19); BLOOD UREA NITROGEN 29 mg/dL (7-20); CALCIUM 8.5 mg/dL (8.4-10.2); CARBON DIOXIDE 26 mmol/L (22-30); CHLORIDE 103 mmol/L (98-107); CREATINE KINASE 74 U/L (55-170); GLUCOSE 88 mg/dL (75-110); POTASSIUM 3.3 mmol/L (3.6-5.0); SODIUM 138.7 mmol/L (137-145)
[2017-11-21 06:17] LABS: CREATINE KINASE MB 1.33 ng/mL (<4.55); TROPONIN I 0.066 ng/mL
--- NOTE | 2017-11-21 09:26 | EKG REPORT ---
SEVERITY:- ABNORMAL ECG - VENTRICULAR-PACED COMPLEXES NONSPECIFIC INTRAVENTRICULAR CONDUCTION DELAY MINIMAL ST DEPRESSION : Confirmed by: Barry Barrow 21-Nov-2017 09:25:38
--- NOTE | 2017-11-21 09:26 | EKG REPORT ---
SEVERITY:- ABNORMAL ECG - VENTRICULAR-PACED COMPLEXES NONSPECIFIC INTRAVENTRICULAR CONDUCTION DELAY MINIMAL ST DEPRESSION, DIFFUSE LEADS : Confirmed by: Barry Barrow 21-Nov-2017 09:25:43
[2017-11-21] MEDS ORDERED: MIDODRINE HCL 5 MG TABLET PO SCH (10:00)
[2017-11-21] MEDS: DOCUSATE SODIUM 100 MG CAPSULE PO SCH ×2 (15:14→22:06)
[2017-11-21] MEDS: NORMAL SALINE 1000 ML 1,000 ML IV PRN (18:21)
--- NOTE | 2017-11-21 19:30 | PDOC PROGRESS REPORT ---
Subjective Progress Note for:: 11/21/17 Subjective:: Patient seems to be doing better with gradual improvement. Pt is denying any chest arm or neck discomfort. Patient denying any PND, orthopnea. Patient denied any sustained palpitations, dizziness, syncope, near syncope. Patient denying any fever chills. Patient denying any other significant discomfort. Patient is maintaining atrial fibrillation with ventricular paced beats Review of systems: Rest review of systems negative. Medications: Medications have been reviewed. Reason For Visit: ACUTE RENAL FAILURE,SUPRATHERAPEUTIC INTERNATIONAL Physical Exam Vital Signs: Temp Pulse Resp BP Pulse Ox 98.8 F 76 20 103/42 L 100 11/21/17 15:34 11/21/17 15:34 11/21/17 15:34 11/21/17 15:34 11/21/17 15:34 Intake & Output 11/20/17 11/21/17 11/22/17 06:59 06:59 06:59 Intake Total 476 400 Balance 476 400 Weight 90.718 kg 98.6 kg Exam: GENERAL: well-nourished and in no acute distress. Alert and oriented x3 HEAD: Atraumatic, normocephalic. EYES: Pupils equal round and reactive to light, extraocular movements intact, sclera anicteric, conjunctiva are normal. ENT: TMs normal, nares patent, oropharynx clear without exudates. Moist mucous membranes. No oral ulcerations or bleeding gums noted NECK: supple without lymphadenopathy. Trachea is central. No cervical or axillary lymphadenopathy noted. Carotids are 2+, JVD WNL LUNGS: Respiration seems nonlabored, no significant accessory muscle action noted. Breath sounds clear to auscultation bilaterally and equal noted. No wheezes rales or rhonchi noted. No significant dullness noted on percussion. CHEST: Palpation of the chest wall shows no significant chest wall tenderness. No other significant abnormalities noted. HEART: [employer], No PSH, 1/6 [place] aortic area, 1/6 bach systolic murmur mitral area, no rubs, no gallops. ABDOMEN: Soft, no significant tenderness appreciated, normoactive bowel sounds. No guarding, no rebound. No rigidity noted . No masses appreciated. EXTREMITIES: Pedal pulses are 1-2+, no calf tenderness noted. No clubbing or cyanosis.1+ pedal edema noted NEUROLOGICAL: Focused neurological exam showed no significant neurologic deficit. Normal speech, no focal weakness appreciated. PSYCH: Normal mood, normal affect. Judgment and insight within normal limits. SKIN: No significant ecchymosis, rash, ulcerations or signs of pruritus noted. MUSCULOSKELETAL EXAM: No significant joint swelling noted. Results Laboratory Results: 11/21/17 05:35 11/21/17 05:35 11/20/17 11/20/17 11/20/17 18:30 22:12 23:25 WBC 9.8 RBC 4.13 L Hgb 11.9 L Hct 34.6 L MCV 84 MCH 28.8 MCHC 34.4 RDW 16.5 H Plt Count 220 Seg Neutrophils % 74.0 Lymphocytes % 8.7 L Monocytes % 9.8 Eosinophils % 6.6 H Basophils % 0.9 Absolute Neutrophils 7.3 Absolute Lymphocytes 0.9 Absolute Monocytes 1.0 Absolute Eosinophils 0.6 Absolute Basophils 0.1 Sodium Potassium Chloride Carbon Dioxide Anion Gap BUN Creatinine Est GFR ( Amer) Est GFR (Non-Af Amer) Glucose Calcium Magnesium 1.8 Urine Color FARA Urine Appearance SLIGHTLY-CLOUDY Urine pH 5.0 Ur Specific [place] 1.015 Urine Protein 30 H Urine Glucose (UA) NEGATIVE Urine Ketones NEGATIVE Urine Blood NEGATIVE Urine Nitrite NEGATIVE Ur Leukocyte Esterase NEGATIVE Urine WBC (Auto) 10 Urine RBC (Auto) 1 11/21/17 11/21/17 05:35 05:35 WBC 8.2 RBC 4.02 L Hgb 11.5 L Hct 33.9 L MCV 84 MCH 28.7 MCHC 34.1 RDW 16.4 H Plt Count 214 Seg Neutrophils % 69.6 Lymphocytes % 9.3 L Monocytes % 9.8 Eosinophils % 10.3 H Basophils % 1.0 Absolute Neutrophils 5.7 Absolute Lymphocytes 0.8 Absolute Monocytes 0.8 Absolute Eosinophils 0.8 H Absolute Basophils 0.1 Sodium 138.7 Potassium 3.3 L Chloride 103 Carbon Dioxide 26 Anion Gap 10 BUN 29 H Creatinine 1.39 H Est GFR ( Amer) > 60 Est GFR (Non-Af Amer) 53 L Glucose 88 Calcium 8.5 Magnesium Urine Color Urine Appearance Urine pH Ur Specific [place] Urine Protein Urine Glucose (UA) Urine Ketones Urine Blood Urine Nitrite Ur Leukocyte Esterase Urine WBC (Auto) Urine RBC (Auto) 11/20/17 11/20/17 11/20/17 18:30 18:30 23:25 Creatine Kinase 70 76 CK-MB (CK-2) 1.42 Troponin I 0.064 11/20/17 11/21/17 11/21/17 23:25 05:35 05:35 Creatine Kinase 74 CK-MB (CK-2) 1.31 1.33 Troponin I 0.063 0.066 EKG Comments: Telemetry shows ventricular paced rhythm with underlying atrial fibrillation. Impressions: Chest X-Ray 11/20/17 10:18 IMPRESSION: NO SIGNIFICANT RADIOGRAPHIC FINDING IN THE CHEST. HARDWARE/SUPPORT DEVICE(S) IN APPROPRIATE AND EXPECTED LOCATION. Assessment & Plan - Diagnosis (1) Hypotension (arterial) Qualifiers: Hypotension type: unspecified hypotension type Qualified Code(s): I95.9 - Hypotension, unspecified Is this a current diagnosis for this admission?: Yes (2) Atrial fibrillation Qualifiers: Atrial fibrillation type: unspecified Qualified Code(s): I48.91 - Unspecified atrial fibrillation Is this a current diagnosis for this admission?: Yes (3) Cardiomyopathy Qualifiers: Cardiomyopathy type: unspecified Qualified Code(s): I42.9 - Cardiomyopathy , unspecified Is this a current diagnosis for this admission?: Yes (4) Coronary artery disease Qualifiers: Coronary Disease-Associated Artery/Lesion type: [place] artery [place] vs. transplanted heart: [place] heart Associated angina: angina presence unspecified Qualified Code(s): I25.10 - Atherosclerotic heart disease of [place] coronary artery without angina pectoris Is this a current diagnosis for this admission?: Yes (5) Sleep disorder Is this a current diagnosis for this admission?: Yes (6) Congestive heart failure Qualifiers: Heart failure type: combined systolic and diastolic Heart failure chronicity: acute on chronic Qualified Code(s): I50.43 - Acute on chronic combined systolic (congestive) and diastolic (congestive) heart failure Is this a current diagnosis for this admission?: Yes (7) Supratherapeutic INR Is this a current diagnosis for this admission?: Yes - Notes Notes: Hypotension: Improved blood pressure now is stable. Atrial fibrillation: Resume chronic anticoagulation when feasible. Cardiomyopathy: Recommend spironolactone 25 mg p.o. daily as patient noted to have some hypokalemia. Will also start patient back slowly on entresto, carvedilol etc. May also consider digoxin therapy at low-dose. Coronary artery disease: Symptomatically stable. Sleep disorder: Patient will benefit from a sleep evaluation as patient likely to have underlying sleep apnea syndrome. CHF: Currently compensated. Supratherapeutic INR: Patient has received plasma. We will start Coumadin once INR between 2 and 3. - Time Time with patient: Greater than 35 minutes - CODE STATUS was discussed, patient remains full code. Surrogate decision-maker unchanged. Multiple medical problems were addressed. More than 50% of the time spent coordinating care, discussing management plans with involved caregivers. Management plans discussed with involved personnels. Medical decision making was of moderate to high complexity, patient's has multiple comorbidities. Medications reviewed and adjusted accordingly: Yes
[2017-11-21] MEDS: IPRATROPIUM/ALBUTEROL 0.5-2.5 MG/3 ML AMPUL NEB SCH (19:31)
--- NOTE | 2017-11-21 21:10 | PDOC PROGRESS REPORT ---
Subjective Progress Note for:: 11/21/17 Subjective:: Still with cough, but nonproductive. No chest pain or significant shortness of breath, fever or chills. This is improving. Receive IV fluids, but currently not on IV fluids Reason For Visit: ACUTE RENAL FAILURE,SUPRATHERAPEUTIC INTERNATIONAL Physical Exam Vital Signs: Temp Pulse Resp BP Pulse Ox 98.8 F 89 18 103/50 L 98 11/21/17 20:22 11/21/17 20:22 11/21/17 20:22 11/21/17 20:22 11/21/17 20:22 Intake & Output 11/20/17 11/21/17 11/22/17 06:59 06:59 06:59 Intake Total 476 400 Balance 476 400 Weight 90.718 kg 98.6 kg GENERAL: Well-developed, no acute distress CARDIOVASCULAR: Regular, normal S1-S2 LUNGS: Breath or wheezing bilaterally ABDOMEN: Soft, NT, NL bowel sounds EXTREMITIES: No edema, clubbing, cyanosis NEUROLOGICAL: Alert, oriented x 3 Results Laboratory Results: 11/21/17 05:35 11/21/17 05:35 11/20/17 11/20/17 11/21/17 22:12 23:25 05:35 WBC 9.8 RBC 4.13 L Hgb 11.9 L Hct 34.6 L MCV 84 MCH 28.8 MCHC 34.4 RDW 16.5 H Plt Count 220 Seg Neutrophils % 74.0 Lymphocytes % 8.7 L Monocytes % 9.8 Eosinophils % 6.6 H Basophils % 0.9 Absolute Neutrophils 7.3 Absolute Lymphocytes 0.9 Absolute Monocytes 1.0 Absolute Eosinophils 0.6 Absolute Basophils 0.1 Sodium 138.7 Potassium 3.3 L Chloride 103 Carbon Dioxide 26 Anion Gap 10 BUN 29 H Creatinine 1.39 H Est GFR ( Amer) > 60 Est GFR (Non-Af Amer) 53 L Glucose 88 Calcium 8.5 Urine Color FARA Urine Appearance SLIGHTLY-CLOUDY Urine pH 5.0 Ur Specific [place] 1.015 Urine Protein 30 H Urine Glucose (UA) NEGATIVE Urine Ketones NEGATIVE Urine Blood NEGATIVE Urine Nitrite NEGATIVE Ur Leukocyte Esterase NEGATIVE Urine WBC (Auto) 10 Urine RBC (Auto) 1 11/21/17 05:35 WBC 8.2 RBC 4.02 L Hgb 11.5 L Hct 33.9 L MCV 84 MCH 28.7 MCHC 34.1 RDW 16.4 H Plt Count 214 Seg Neutrophils % 69.6 Lymphocytes % 9.3 L Monocytes % 9.8 Eosinophils % 10.3 H Basophils % 1.0 Absolute Neutrophils 5.7 Absolute Lymphocytes 0.8 Absolute Monocytes 0.8 Absolute Eosinophils 0.8 H Absolute Basophils 0.1 Sodium Potassium Chloride Carbon Dioxide Anion Gap BUN Creatinine Est GFR ( Amer) Est GFR (Non-Af Amer) Glucose Calcium Urine Color Urine Appearance Urine pH Ur Specific [place] Urine Protein Urine Glucose (UA) Urine Ketones Urine Blood Urine Nitrite Ur Leukocyte Esterase Urine WBC (Auto) Urine RBC (Auto) 11/20/17 11/20/17 11/20/17 18:30 18:30 23:25 Creatine Kinase 70 76 CK-MB (CK-2) 1.42 Troponin I 0.064 11/20/17 11/21/17 11/21/17 23:25 05:35 05:35 Creatine Kinase 74 CK-MB (CK-2) 1.31 1.33 Troponin I 0.063 0.066 Impressions: Chest X-Ray 11/20/17 10:18 IMPRESSION: NO SIGNIFICANT RADIOGRAPHIC FINDING IN THE CHEST. HARDWARE/SUPPORT DEVICE(S) IN APPROPRIATE AND EXPECTED LOCATION. Assessment & Plan - Diagnosis (1) Acute renal failure Qualifiers: Acute renal failure type: unspecified Qualified Code(s): N17.9 - Acute kidney failure, unspecified Is this a current diagnosis for this admission?: Yes Plan: Improved. Continue to hold IV fluids given history of cardiomyopathy. Follow- up Chem-7 in a.m. (2) Atrial fibrillation Qualifiers: Atrial fibrillation type: unspecified Qualified Code(s): I48.91 - Unspecified atrial fibrillation Is this a current diagnosis for this admission?: Yes Plan: Patient/rate controlled at this time. (3) Hypotension Qualifiers: Hypotension type: unspecified hypotension type Qualified Code(s): I95.9 - Hypotension, unspecified Is this a current diagnosis for this admission?: Yes Plan: Improved. Continue to monitor. (4) Supratherapeutic INR Is this a current diagnosis for this admission?: Yes Plan: Continue to monitor INR. (5) Cardiomyopathy Qualifiers: Cardiomyopathy type: unspecified Qualified Code(s): I42.9 - Cardiomyopathy , unspecified Is this a current diagnosis for this admission?: Yes Plan: EF 25%. Cardiology evaluation appreciated. (6) Cough Is this a current diagnosis for this admission?: Yes Plan: Secondary to viral illness. Possible mild bronchospasm as well. Will treat with duo nebs. Also trial of prednisone.
[2017-11-21] MEDS ORDERED: COLCHICINE 0.6 MG TABLET PO PRN (21:22)
[2017-11-21] MEDS: PREDNISONE 20 MG TABLET PO SCH (22:07)
[2017-11-21 22:19] LABS: ABSOLUTE BASOPHILS # (AUTO) 0.1 10^3/uL (0.0-0.2); ABSOLUTE EOSINOPHILS # (AUTO) 0.6 10^3/uL (0.0-0.6); ABSOLUTE LYMPHOCYTES (AUTO) 0.7 10^3/uL (0.5-4.7); ABSOLUTE NEUT (AUTO) 6.3 10^3/uL (1.7-8.2); BASOPHILS % (AUTO) 0.6 % (0-2); EOSINOPHILS % (AUTO) 7.3 % (0-6); HEMATOCRIT 31.9 % (37.9-51.0); HEMOGLOBIN 10.9 g/dL (13.5-17.0); LYMPHOCYTES % (AUTO) 7.8 % (13-45); MEAN CORPUSCULAR HEMOGLOBIN 28.9 pg (27.0-33.4); MEAN CORPUSCULAR HGB CONC 34.3 g/dL (32.0-36.0); MEAN CORPUSCULAR VOLUME 84 fl (80-97); PLATELET COUNT 198 10^3/uL (150-450); RED BLOOD COUNT 3.78 10^6/uL (4.35-5.55); RED CELL DISTRIBUTION WIDTH 16.3 % (11.5-14.0); SEGMENTED NEUTROPHILS % (AUTO) 73.3 % (42-78); TOTAL CELLS COUNTED % (AUTO) 100 %; WHITE BLOOD COUNT 8.7 10^3/uL (4.0-10.5)
[2017-11-21 22:40] LABS: ANION GAP 7 (5-19); BLOOD UREA NITROGEN 20 mg/dL (7-20); CALCIUM 8.6 mg/dL (8.4-10.2); CARBON DIOXIDE 29 mmol/L (22-30); CHLORIDE 104 mmol/L (98-107); GLUCOSE 116 mg/dL (75-110); POTASSIUM 3.5 mmol/L (3.6-5.0); SODIUM 139.6 mmol/L (137-145)
[2017-11-22] MEDS: HYDROCODONE BIT/HOMATROPINE 5-1.5 MG TABLET PO PRN ×3 (00:36→22:41)
[2017-11-22] MEDS: IPRATROPIUM/ALBUTEROL 0.5-2.5 MG/3 ML AMPUL NEB SCH ×3 (02:04→14:15)
[2017-11-22] MEDS: NORMAL SALINE 1000 ML 1,000 ML IV PRN ×3 (03:24→22:42)
[2017-11-22 05:10] LABS: INTERNATIONAL RATION (INR) 1.23
[2017-11-22 05:11] LABS: PROTHROMBIN TIME 16.4 SEC (11.4-15.4)
[2017-11-22] MEDS: MIDODRINE HCL 5 MG TABLET PO SCH ×3 (05:36→16:32)
[2017-11-22] MEDS: INSULIN LISPRO 100 UNIT/ML 3 ML VIAL SUBCUT PRN ×3 (07:51→16:58)
--- NOTE | 2017-11-22 08:44 | Physician Advisory Note ---
Physician Advisor ProgressNote .: Pursuant to the plan for [facility], I have reviewed the medical record for this patient. Physician Advisor Statement: Nice documentation of cardiomopathy w/EF, & of ARF. Please consider documenting, if you agree: 1. ? " shock, w/hypotension persistent despite >>2L [actually 5L] of IVF boluses + transfusion the 1st day, with associated ARF, likely due to _" - Hypovolemic? (due to diuretics?), Cardiogenic? (due to cardiomyopathy? ), ... 2. "Acute hyponatremia, suspect due to " [intravascular volume depletion?] 3. "Chronic Afib" - or "Paroxysmal afib" Thanks! CK
--- NOTE | 2017-11-22 08:49 | EKG REPORT ---
SEVERITY:- ABNORMAL ECG - VENTRICULAR-PACED COMPLEXES NONSPECIFIC INTRAVENTRICULAR CONDUCTION DELAY MINIMAL ST DEPRESSION, DIFFUSE LEADS A FIB : Confirmed by: Barry Barrow 22-Nov-2017 08:48:26
[2017-11-22] MEDS: PREDNISONE 20 MG TABLET PO SCH ×2 (09:34→21:58)
[2017-11-22] MEDS: SPIRONOLACTONE 25 MG TABLET PO SCH (09:34)
[2017-11-22] MEDS: DOCUSATE SODIUM 100 MG CAPSULE PO SCH ×2 (09:38→21:58)
[2017-11-22] MEDS ORDERED: SACUBITRIL/VALSARTAN 24 MG/26 MG TABLET PO ONE (16:30)
--- NOTE | 2017-11-22 17:26 | PDOC PROGRESS REPORT ---
Subjective Progress Note for:: 11/22/17 Subjective:: Feeling better today, cough better. Shortness of breath improved. Denies palpitations, although this happens with albuterol. Albuterol has been changed to Xopenex. No fever or chills. Reason For Visit: ACUTE RENAL FAILURE,SUPRATHERAPEUTIC INTERNATIONAL Physical Exam Vital Signs: Temp Pulse Resp BP Pulse Ox 97.7 F 85 16 106/62 96 11/22/17 12:40 11/22/17 14:15 11/22/17 14:15 11/22/17 12:40 11/22/17 14:15 Intake & Output 11/21/17 11/22/17 11/23/17 06:59 06:59 06:59 Intake Total 476 1898 Balance 476 1898 Weight 90.718 kg 99.1 kg 99.1 kg GENERAL: Well-developed, no acute distress CARDIOVASCULAR: Regular, normal S1-S2 LUNGS: Occasional wheezing bilaterally ABDOMEN: Soft, NT, NL bowel sounds EXTREMITIES: No edema, clubbing, cyanosis NEUROLOGICAL: Alert, oriented x 3 Results Laboratory Results: 11/21/17 22:12 11/21/17 22:12 11/21/17 11/21/17 22:12 22:12 WBC 8.7 RBC 3.78 L Hgb 10.9 L Hct 31.9 L MCV 84 MCH 28.9 MCHC 34.3 RDW 16.3 H Plt Count 198 Seg Neutrophils % 73.3 Lymphocytes % 7.8 L Monocytes % 11.0 Eosinophils % 7.3 H Basophils % 0.6 Absolute Neutrophils 6.3 Absolute Lymphocytes 0.7 Absolute Monocytes 1.0 Absolute Eosinophils 0.6 Absolute Basophils 0.1 Sodium 139.6 Potassium 3.5 L Chloride 104 Carbon Dioxide 29 Anion Gap 7 BUN 20 Creatinine 0.99 Est GFR ( Amer) > 60 Est GFR (Non-Af Amer) > 60 Glucose 116 H Calcium 8.6 11/20/17 11/20/17 11/20/17 18:30 18:30 23:25 Creatine Kinase 70 76 CK-MB (CK-2) 1.42 Troponin I 0.064 11/20/17 11/21/17 11/21/17 23:25 05:35 05:35 Creatine Kinase 74 CK-MB (CK-2) 1.31 1.33 Troponin I 0.063 0.066 Impressions: Chest X-Ray 11/20/17 10:18 IMPRESSION: NO SIGNIFICANT RADIOGRAPHIC FINDING IN THE CHEST. HARDWARE/SUPPORT DEVICE(S) IN APPROPRIATE AND EXPECTED LOCATION. Assessment & Plan - Diagnosis (1) Acute renal failure Qualifiers: Acute renal failure type: unspecified Qualified Code(s): N17.9 - Acute kidney failure, unspecified Is this a current diagnosis for this admission?: Yes Plan: Improved. Continue to hold IV fluids given history of cardiomyopathy. Follow- up Chem-7 in a.m. (2) Atrial fibrillation Qualifiers: Atrial fibrillation type: unspecified Qualified Code(s): I48.91 - Unspecified atrial fibrillation Is this a current diagnosis for this admission?: Yes Plan: Patient/rate controlled at this time. Albuterol changed to Xopenex. (3) Hypotension Qualifiers: Hypotension type: unspecified hypotension type Qualified Code(s): I95.9 - Hypotension, unspecified Is this a current diagnosis for this admission?: Yes Plan: Improved. Continue to monitor. (4) Supratherapeutic INR Is this a current diagnosis for this admission?: Yes Plan: Resolved. Will restart Coumadin. Continue to monitor INR. (5) Cardiomyopathy Qualifiers: Cardiomyopathy type: unspecified Qualified Code(s): I42.9 - Cardiomyopathy , unspecified Is this a current diagnosis for this admission?: Yes Plan: EF 25%. Cardiology evaluation appreciated. (6) Cough Is this a current diagnosis for this admission?: Yes Plan: Secondary to viral illness. Possible mild bronchospasm as well. Continue with nebs and trial of prednisone.
--- NOTE | 2017-11-22 18:44 | XCELERA REPORT ---
[address] [address] Transthoracic Echocardiogram Report Name: SJ REYES Age: 57 yrs Gender: Male : 1960 Patient Status: Inpatient Patient Location: [address] [place], [place] [address] Study Date: 11/22/2017 01:28 PM Height: 68 in Weight: 217 lb BSA: 2.1 m2 Procedure: A complete two-dimensional transthoracic echocardiogram was performed (2D, M-mode, spectral and color flow Doppler). The study was technically difficult with many images being suboptimal in quality. Reason For Study: Cardiomyopathy, CHF, A. fib Ordering Physician: BARRY HERNANDEZ Performed By: Kayli Taylor Interpretation Summary The Ejection Fraction estimate is 35-40% Left ventricular systolic function is moderately reduced. LV diastolic function could not be adequately assessed. There is borderline concentric left ventricular hypertrophy. The left ventricle is mildly dilated. Apical wall motion abnormality may reflect pacemaker activation The right ventricular systolic function is normal. The left atrium is moderately dilated. The right atrium is mildly dilated. There is a mild amount of mitral regurgitation There is no mitral valve stenosis. There is a trace amount of aortic regurgitation There is no aortic valve stenosis There is a mild amount of tricuspid regurgitation There is moderate pulmonary hypertension by echo Right ventricular systolic pressure is estimated to be elevated at 50- 60mmHg. The aortic root is not well visualized but is probably normal size. The inferior vena cava appeared normal and decreased > 50% with respiration (RAP 5-10 mmHg) There is no pericardial effusion. MMode/2D Measurements & Calculations RVDd: 2.8 cm LVIDd: 6.5 cm FS: 17.8 % Ao root diam: 3.0 cm IVSd: 0.87 cm LVIDs: 5.4 cm EDV(Teich): 217.0 ml LVPWd: 0.90 cm ESV(Teich): 138.6 ml Ao root area: 7.3 cm2 EF(Teich): 36.1 % Doppler Measurements & Calculations MV E max jay: MV dec slope: Ao V2 max: LV V1 max P.1 cm/sec 145.1 cm/sec 4.9 mmHg MV A max jay: 548.6 cm/sec2 Ao max PG: LV V1 max: 0.53 cm/sec MV dec time: 8.4 mmHg 111.1 cm/sec MV E/A: 207.7 0.20 sec PA V2 max: PI end-d jay: TR max jay: 95.7 cm/sec 73.2 cm/sec 312.7 cm/sec PA max P.7 mmHg TR max P.0 mmHg Left Ventricle The left ventricle is mildly dilated. There is borderline concentric left ventricular hypertrophy. Left ventricular systolic function is moderately reduced. The Ejection Fraction estimate is 35-40%. LV diastolic function could not be adequately assessed. Apical wall motion abnormality may reflect pacemaker activation. Right Ventricle The right ventricle is grossly normal size. There is normal right ventricular wall thickness. The right ventricular systolic function is normal. Atria The right atrium is mildly dilated. The left atrium is moderately dilated. Interarterial septum not well visualized and not well dopplered. Cannot comment on ASD/PFO presence. Mitral Valve The mitral valve leaflets are sclerotic, but show no functional abnormalities. There is no mitral valve stenosis. There is a mild amount of mitral regurgitation. Aortic Valve The aortic valve is not well visualized secondary to technical limitations. There is no aortic valve stenosis. There is a trace amount of aortic regurgitation. Tricuspid Valve The tricuspid valve is not well visualized, but is grossly normal. There is no tricuspid stenosis. There is a mild amount of tricuspid regurgitation. There is moderate pulmonary hypertension by echo. Right ventricular systolic pressure is estimated to be elevated at 50-60mmHg. Pulmonic Valve The pulmonic valve is not well visualized. Great Vessels The aortic root is not well visualized but is probably normal size. The inferior vena cava appeared normal and decreased > 50% with respiration (RAP 5-10 mmHg). Effusions There is no pericardial effusion. : BARRY HERNANDEZ > Barry Hernandez
[2017-11-22 18:53] LABS: HEMATOCRIT 32.8 % (37.9-51.0); HEMOGLOBIN 11.2 g/dL (13.5-17.0); MEAN CORPUSCULAR HEMOGLOBIN 28.5 pg (27.0-33.4); MEAN CORPUSCULAR HGB CONC 34.1 g/dL (32.0-36.0); MEAN CORPUSCULAR VOLUME 84 fl (80-97); PLATELET COUNT 250 10^3/uL (150-450); RED BLOOD COUNT 3.93 10^6/uL (4.35-5.55); RED CELL DISTRIBUTION WIDTH 16.6 % (11.5-14.0); WHITE BLOOD COUNT 11.5 10^3/uL (4.0-10.5)
[2017-11-22 18:59] LABS: INTERNATIONAL RATION (INR) 1.14; PROTHROMBIN TIME 15.4 SEC (11.4-15.4)
[2017-11-22 19:06] LABS: ANION GAP 13 (5-19); BLOOD UREA NITROGEN 15 mg/dL (7-20); CALCIUM 9.2 mg/dL (8.4-10.2); CARBON DIOXIDE 23 mmol/L (22-30); CHLORIDE 103 mmol/L (98-107); GLUCOSE 186 mg/dL (75-110); POTASSIUM 3.8 mmol/L (3.6-5.0); SODIUM 138.7 mmol/L (137-145)
[2017-11-22 19:17] LABS: ABSOLUTE LYMPHOCYTES# (MANUAL) 0.5 10^3/uL (0.5-4.7); ABSOLUTE MONOCYTES # (MANUAL) 0.2 10^3/uL (0.1-1.4); ABSOLUTE NEUTROPHILS# (MANUAL) 10.8 10^3/uL (1.7-8.2); BASOPHILS % (MANUAL) 0 % (0-2); EOSINOPHILS % (MANUAL) 0 % (0-6); LYMPHOCYTES % (MANUAL) 4 % (13-45); MONOCYTES % (MANUAL) 2 % (3-13); SEGMENTED NEUTROPHILS % (MAN) 94 % (42-78); TOTAL CELLS COUNTED 100
[2017-11-22 19:19] LABS: TOXIC GRANULATION 1+
[2017-11-22 19:20] LABS: ANISOCYTOSIS 1+; BURR CELLS SLIGHT; OVALOCYTES SLIGHT; PLATELET COMMENT ADEQUATE; PLATELET GIANT PRESENT; PLATELET LARGE PRESENT; POIKILOCYTOSIS 1+; SCHISTOCYTES 1+; TEAR DROP CELLS 1+
[2017-11-22] MEDS: LEVALBUTEROL HCL NEB 1.25 MG/3 ML AMPUL NEB SCH (19:29)
--- NOTE | 2017-11-22 20:28 | PDOC PROGRESS REPORT ---
Subjective Progress Note for:: 11/22/17 Subjective:: Patient seems to be doing better with gradual improvement. Pt is denying any chest arm or neck discomfort. Patient denying any PND, orthopnea. Patient denied any sustained palpitations, dizziness, syncope, near syncope. Patient denying any fever chills. Patient denying any other significant discomfort. Patient is maintaining atrial fibrillation with ventricular paced beats Review of systems: Rest review of systems negative. Medications: Medications have been reviewed. 2D echo reviewed. Patient started on entresto therapy. Parameters for holding the medication written. Reason For Visit: ACUTE RENAL FAILURE,SUPRATHERAPEUTIC INTERNATIONAL Physical Exam Vital Signs: Temp Pulse Resp BP Pulse Ox 98.1 F 102 H 18 125/77 98 11/22/17 20:03 11/22/17 20:03 11/22/17 20:03 11/22/17 20:03 11/22/17 20:03 Intake & Output 11/21/17 11/22/17 11/23/17 06:59 06:59 06:59 Intake Total 476 1898 1950 Balance 476 1898 1950 Weight 90.718 kg 99.1 kg 99.1 kg Exam: GENERAL: well-nourished and in no acute distress. Alert and oriented x3 HEAD: Atraumatic, normocephalic. EYES: Pupils equal round and reactive to light, extraocular movements intact, sclera anicteric, conjunctiva are normal. ENT: TMs normal, nares patent, oropharynx clear without exudates. Moist mucous membranes. No oral ulcerations or bleeding gums noted NECK: supple without lymphadenopathy. Trachea is central. No cervical or axillary lymphadenopathy noted. Carotids are 2+, JVD WNL LUNGS: Respiration seems nonlabored, no significant accessory muscle action noted. Breath sounds clear to auscultation bilaterally and equal noted. No wheezes rales or rhonchi noted. No significant dullness noted on percussion. CHEST: Palpation of the chest wall shows no significant chest wall tenderness. No other significant abnormalities noted. 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 ABDOMEN: Soft, no significant tenderness appreciated, normoactive bowel sounds. No guarding, no rebound. No rigidity noted . No masses appreciated. EXTREMITIES: Pedal pulses are 1-2+, no calf tenderness noted. No clubbing or cyanosis.trace to 1+ pedal edema noted NEUROLOGICAL: Focused neurological exam showed no significant neurologic deficit. Normal speech, no focal weakness appreciated. PSYCH: Normal mood, normal affect. Judgment and insight within normal limits. SKIN: No significant ecchymosis, rash, ulcerations or signs of pruritus noted. MUSCULOSKELETAL EXAM: No significant joint swelling noted. Results Laboratory Results: 11/22/17 18:25 11/22/17 18:25 11/21/17 11/21/17 11/22/17 22:12 22:12 18:25 WBC 8.7 11.5 H RBC 3.78 L 3.93 L Hgb 10.9 L 11.2 L Hct 31.9 L 32.8 L MCV 84 84 MCH 28.9 28.5 MCHC 34.3 34.1 RDW 16.3 H 16.6 H Plt Count 198 250 Seg Neutrophils % 73.3 Not Reportable Lymphocytes % 7.8 L Not Reportable Monocytes % 11.0 Not Reportable Eosinophils % 7.3 H Not Reportable Basophils % 0.6 Not Reportable Absolute Neutrophils 6.3 Not Reportable Absolute Lymphocytes 0.7 Not Reportable Absolute Monocytes 1.0 Not Reportable Absolute Eosinophils 0.6 Not Reportable Absolute Basophils 0.1 Not Reportable Sodium 139.6 Potassium 3.5 L Chloride 104 Carbon Dioxide 29 Anion Gap 7 BUN 20 Creatinine 0.99 Est GFR ( Amer) > 60 Est GFR (Non-Af Amer) > 60 Glucose 116 H Calcium 8.6 11/22/17 18:25 WBC RBC Hgb Hct MCV MCH MCHC RDW Plt Count Seg Neutrophils % Lymphocytes % Monocytes % Eosinophils % Basophils % Absolute Neutrophils Absolute Lymphocytes Absolute Monocytes Absolute Eosinophils Absolute Basophils Sodium 138.7 Potassium 3.8 Chloride 103 Carbon Dioxide 23 Anion Gap 13 BUN 15 Creatinine 0.76 Est GFR ( Amer) > 60 Est GFR (Non-Af Amer) > 60 Glucose 186 H Calcium 9.2 11/20/17 11/20/17 11/20/17 18:30 18:30 23:25 Creatine Kinase 70 76 CK-MB (CK-2) 1.42 Troponin I 0.064 11/20/17 11/21/17 11/21/17 23:25 05:35 05:35 Creatine Kinase 74 CK-MB (CK-2) 1.31 1.33 Troponin I 0.063 0.066 EKG Comments: Telemetry shows ventricular paced rhythm. Underlying atrial fibrillation noted. Impressions: Chest X-Ray 11/20/17 10:18 IMPRESSION: NO SIGNIFICANT RADIOGRAPHIC FINDING IN THE CHEST. HARDWARE/SUPPORT DEVICE(S) IN APPROPRIATE AND EXPECTED LOCATION. Assessment & Plan - Diagnosis (1) Hypotension (arterial) Qualifiers: Hypotension type: unspecified hypotension type Qualified Code(s): I95.9 - Hypotension, unspecified Is this a current diagnosis for this admission?: Yes (2) Atrial fibrillation Qualifiers: Atrial fibrillation type: unspecified Qualified Code(s): I48.91 - Unspecified atrial fibrillation Is this a current diagnosis for this admission?: Yes (3) Cardiomyopathy Qualifiers: Cardiomyopathy type: unspecified Qualified Code(s): I42.9 - Cardiomyopathy , unspecified Is this a current diagnosis for this admission?: Yes (4) Coronary artery disease Qualifiers: Coronary Disease-Associated Artery/Lesion type: [place] artery [place] vs. transplanted heart: [place] heart Associated angina: angina presence unspecified Qualified Code(s): I25.10 - Atherosclerotic heart disease of [place] coronary artery without angina pectoris Is this a current diagnosis for this admission?: Yes (5) Sleep disorder Is this a current diagnosis for this admission?: Yes (6) Congestive heart failure Qualifiers: Heart failure type: combined systolic and diastolic Heart failure chronicity: acute on chronic Qualified Code(s): I50.43 - Acute on chronic combined systolic (congestive) and diastolic (congestive) heart failure Is this a current diagnosis for this admission?: Yes (7) Supratherapeutic INR Is this a current diagnosis for this admission?: Yes - Notes Notes: 2D echo reviewed. Patient started on entresto therapy. Parameters for holding the medication written. Gradually optimize beta-eric therapy. Hypotension: Improved blood pressure now is stable. Will restart carvedilol in the morning. Prefer to switch from metoprolol XL to carvedilol. Atrial fibrillation: Resume chronic anticoagulation when feasible. Cardiomyopathy: Recommend spironolactone 25 mg p.o. daily as patient noted to have some hypokalemia. Started patient on entresto, carvedilol etc. May also continue digoxin therapy at low-dose. Coronary artery disease: Symptomatically stable. Sleep disorder: Patient will benefit from a sleep evaluation as patient likely to have underlying sleep apnea syndrome. CHF: Currently compensated. Supratherapeutic INR: Patient has received plasma. We will start Coumadin once INR between 2 and 3. - Time Time with patient: Greater than 35 minutes - 2D echo shows LVEF at approximately 35%. These results were discussed with the patient. Medication adjusted. CODE STATUS was discussed, patient remains full code. Surrogate decision-maker unchanged. Multiple medical problems were addressed. More than 50% of the time spent coordinating care, discussing management plans with involved caregivers. Management plans discussed with involved personnels. Medical decision making was of moderate to high complexity, patient's has multiple comorbidities. Medications reviewed and adjusted accordingly: Yes
[2017-11-22] MEDS: SACUBITRIL/VALSARTAN 24 MG/26 MG TABLET PO SCH (21:50)
[2017-11-22] MEDS: WARFARIN SODIUM 5 MG TABLET PO SCH (21:58)
[2017-11-23] MEDS: LEVALBUTEROL HCL NEB 1.25 MG/3 ML AMPUL NEB SCH ×4 (01:52→19:38)
[2017-11-23] MEDS: ACETAMINOPHEN 325 MG TABLET PO PRN ×2 (02:02→21:46)
[2017-11-23] MEDS: MIDODRINE HCL 5 MG TABLET PO SCH ×3 (05:32→17:30)
[2017-11-23] MEDS: DOCUSATE SODIUM 100 MG CAPSULE PO SCH ×2 (09:25→21:46)
[2017-11-23] MEDS: SPIRONOLACTONE 25 MG TABLET PO SCH (09:25)
[2017-11-23] MEDS: SACUBITRIL/VALSARTAN 24 MG/26 MG TABLET PO SCH ×2 (09:25→21:49)
[2017-11-23] MEDS: PREDNISONE 20 MG TABLET PO SCH ×2 (09:25→21:47)
[2017-11-23] MEDS: NORMAL SALINE 1000 ML 1,000 ML IV PRN (09:27)
[2017-11-23 09:32] LABS: HEMOGLOBIN 11.7 g/dL (13.5-17.0); MEAN CORPUSCULAR HEMOGLOBIN 28.7 pg (27.0-33.4); MEAN CORPUSCULAR HGB CONC 34.5 g/dL (32.0-36.0); MEAN CORPUSCULAR VOLUME 83 fl (80-97); PLATELET COUNT 228 10^3/uL (150-450); RED BLOOD COUNT 4.08 10^6/uL (4.35-5.55); RED CELL DISTRIBUTION WIDTH 16.7 % (11.5-14.0); WHITE BLOOD COUNT 10.2 10^3/uL (4.0-10.5)
[2017-11-23 10:05] LABS: ABSOLUTE LYMPHOCYTES# (MANUAL) 0.3 10^3/uL (0.5-4.7); ABSOLUTE NEUTROPHILS# (MANUAL) 9.9 10^3/uL (1.7-8.2); ANISOCYTOSIS 1+; BASOPHILS % (MANUAL) 0 % (0-2); EOSINOPHILS % (MANUAL) 0 % (0-6); HYPOCHROMASIA SLIGHT; LYMPHOCYTES % (MANUAL) 2 % (13-45); MONOCYTES % (MANUAL) 0 % (3-13); PLATELET CLUMPS PRESENT; PLATELET COMMENT ADEQUATE; SEGMENTED NEUTROPHILS % (MAN) 97 % (42-78); TOTAL CELLS COUNTED 100
[2017-11-23 10:06] LABS: OVALOCYTES SLIGHT; POIKILOCYTOSIS SLIGHT; POLYCHROMASIA SLIGHT; TOXIC GRANULATION 1+
[2017-11-23 10:47] LABS: ANION GAP 12 (5-19); BLOOD UREA NITROGEN 12 mg/dL (7-20); CALCIUM 8.8 mg/dL (8.4-10.2); CARBON DIOXIDE 21 mmol/L (22-30); CHLORIDE 104 mmol/L (98-107); GLUCOSE 246 mg/dL (75-110); POTASSIUM 3.4 mmol/L (3.6-5.0); SODIUM 136.6 mmol/L (137-145)
--- NOTE | 2017-11-23 11:35 | PDOC PROGRESS REPORT ---
Subjective Progress Note for:: 11/23/17 Subjective:: Blood pressure noted to be stable. Have placed patient on carvedilol. May consider to reduce Midodrin dose. Have stopped IV fluids. Patient seems to be doing better with gradual improvement. Pt is denying any chest arm or neck discomfort. Patient denying any PND, orthopnea. Patient denied any sustained palpitations, dizziness, syncope, near syncope. Patient denying any fever chills. Patient denying any other significant discomfort. Patient is maintaining atrial fibrillation with ventricular paced beats Review of systems: Rest review of systems negative. Medications: Medications have been reviewed. Reason For Visit: ACUTE RENAL FAILURE,SUPRATHERAPEUTIC INTERNATIONAL Physical Exam Vital Signs: Temp Pulse Resp BP Pulse Ox 97.5 F 80 20 136/82 H 100 11/23/17 07:55 11/23/17 07:55 11/23/17 07:55 11/23/17 07:55 11/23/17 07:55 Intake & Output 11/22/17 11/23/17 11/24/17 06:59 06:59 06:59 Intake Total 1898 3193 Output Total 500 Balance 1898 2693 Weight 99.1 kg 98.1 kg Exam: GENERAL: well-nourished and in no acute distress. Alert and oriented x3 HEAD: Atraumatic, normocephalic. EYES: Pupils equal round and reactive to light, extraocular movements intact, sclera anicteric, conjunctiva are normal. ENT: TMs normal, nares patent, oropharynx clear without exudates. Moist mucous membranes. No oral ulcerations or bleeding gums noted NECK: supple without lymphadenopathy. Trachea is central. No cervical or axillary lymphadenopathy noted. Carotids are 2+, JVD WNL LUNGS: Respiration seems nonlabored, no significant accessory muscle action noted. Breath sounds clear to auscultation bilaterally and equal noted. No wheezes rales or rhonchi noted. No significant dullness noted on percussion. CHEST: Palpation of the chest wall shows no significant chest wall tenderness. No other significant abnormalities noted. 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 ABDOMEN: Soft, no significant tenderness appreciated, normoactive bowel sounds. No guarding, no rebound. No rigidity noted . No masses appreciated. EXTREMITIES: Pedal pulses are 1-2+, no calf tenderness noted. No clubbing or cyanosis.trace to 1+ pedal edema noted NEUROLOGICAL: Focused neurological exam showed no significant neurologic deficit. Normal speech, no focal weakness appreciated. PSYCH: Normal mood, normal affect. Judgment and insight within normal limits. SKIN: No significant ecchymosis, rash, ulcerations or signs of pruritus noted. MUSCULOSKELETAL EXAM: No significant joint swelling noted. Results Laboratory Results: 11/23/17 08:30 11/23/17 10:07 11/22/17 11/22/17 11/23/17 18:25 18:25 08:30 WBC 11.5 H 10.2 RBC 3.93 L 4.08 L Hgb 11.2 L 11.7 L Hct 32.8 L 34.0 L MCV 84 83 MCH 28.5 28.7 MCHC 34.1 34.5 RDW 16.6 H 16.7 H Plt Count 250 228 Seg Neutrophils % Not Reportable Not Reportable Lymphocytes % Not Reportable Not Reportable Monocytes % Not Reportable Not Reportable Eosinophils % Not Reportable Not Reportable Basophils % Not Reportable Not Reportable Absolute Neutrophils Not Reportable Not Reportable Absolute Lymphocytes Not Reportable Not Reportable Absolute Monocytes Not Reportable Not Reportable Absolute Eosinophils Not Reportable Not Reportable Absolute Basophils Not Reportable Not Reportable Sodium 138.7 Potassium 3.8 Chloride 103 Carbon Dioxide 23 Anion Gap 13 BUN 15 Creatinine 0.76 Est GFR ( Amer) > 60 Est GFR (Non-Af Amer) > 60 Glucose 186 H Calcium 9.2 11/23/17 10:07 WBC RBC Hgb Hct MCV MCH MCHC RDW Plt Count Seg Neutrophils % Lymphocytes % Monocytes % Eosinophils % Basophils % Absolute Neutrophils Absolute Lymphocytes Absolute Monocytes Absolute Eosinophils Absolute Basophils Sodium 136.6 L Potassium 3.4 L Chloride 104 Carbon Dioxide 21 L Anion Gap 12 BUN 12 Creatinine 0.79 Est GFR ( Amer) > 60 Est GFR (Non-Af Amer) > 60 Glucose 246 H Calcium 8.8 11/20/17 11/20/17 11/20/17 18:30 18:30 23:25 Creatine Kinase 70 76 CK-MB (CK-2) 1.42 Troponin I 0.064 11/20/17 11/21/17 11/21/17 23:25 05:35 05:35 Creatine Kinase 74 CK-MB (CK-2) 1.31 1.33 Troponin I 0.063 0.066 EKG Comments: Ventricular paced rhythm with underlying A. fib. Impressions: Chest X-Ray 11/20/17 10:18 IMPRESSION: NO SIGNIFICANT RADIOGRAPHIC FINDING IN THE CHEST. HARDWARE/SUPPORT DEVICE(S) IN APPROPRIATE AND EXPECTED LOCATION. Assessment & Plan - Diagnosis (1) Hypotension (arterial) Qualifiers: Hypotension type: unspecified hypotension type Qualified Code(s): I95.9 - Hypotension, unspecified Is this a current diagnosis for this admission?: Yes (2) Atrial fibrillation Qualifiers: Atrial fibrillation type: unspecified Qualified Code(s): I48.91 - Unspecified atrial fibrillation Is this a current diagnosis for this admission?: Yes (3) Cardiomyopathy Qualifiers: Cardiomyopathy type: unspecified Qualified Code(s): I42.9 - Cardiomyopathy , unspecified Is this a current diagnosis for this admission?: Yes (4) Coronary artery disease Qualifiers: Coronary Disease-Associated Artery/Lesion type: [place] artery [place] vs. transplanted heart: [place] heart Associated angina: angina presence unspecified Qualified Code(s): I25.10 - Atherosclerotic heart disease of [place] coronary artery without angina pectoris Is this a current diagnosis for this admission?: Yes (5) Sleep disorder Is this a current diagnosis for this admission?: Yes (6) Congestive heart failure Qualifiers: Heart failure type: combined systolic and diastolic Heart failure chronicity: acute on chronic Qualified Code(s): I50.43 - Acute on chronic combined systolic (congestive) and diastolic (congestive) heart failure Is this a current diagnosis for this admission?: Yes (7) Supratherapeutic INR Is this a current diagnosis for this admission?: Yes - Notes Notes: Hypotension: Improved blood pressure now is stable. started entresto yesterday and also carvedilol today. Monitor BP closely. May consider to lower dose of midodrine. Atrial fibrillation: Resume chronic anticoagulation when feasible. Cardiomyopathy: Also started spironolactone 25 mg p.o. daily as patient noted to have some hypokalemia. Currently on low-dose entresto and carvedilol, May also consider digoxin therapy at low-dose. Coronary artery disease: Symptomatically stable. Sleep disorder: Patient will benefit from a sleep evaluation as patient likely to have underlying sleep apnea syndrome. CHF: Currently compensated. Supratherapeutic INR: Patient restarted back on Coumadin. May consider Lovenox bridge or at least DVT prophylaxis Lovenox due to prior history of stroke, CHF etc. - Time Time with patient: 15-25 minutes - CODE STATUS was discussed, patient remains full code. Surrogate decision-maker unchanged. Multiple medical problems were addressed. More than 50% of the time spent coordinating care, discussing management plans with involved caregivers. Management plans discussed with involved personnels. Medical decision making was of moderate to high complexity , patient's has multiple comorbidities. Medications reviewed and adjusted accordingly: Yes
[2017-11-23] MEDS: HYDROCODONE BIT/HOMATROPINE 5-1.5 MG TABLET PO PRN (12:56)
[2017-11-23] MEDS: INSULIN LISPRO 100 UNIT/ML 3 ML VIAL SUBCUT PRN ×3 (12:56→23:28)
[2017-11-23] MEDS ORDERED: TORSEMIDE 20 MG TABLET PO ONE (13:00)
[2017-11-23] MEDS: CARVEDILOL 6.25 MG TABLET PO SCH (17:29)
--- NOTE | 2017-11-23 20:06 | PDOC PROGRESS REPORT ---
Subjective Progress Note for:: 11/23/17 Subjective:: Doing better, Still with intermittent cough, nonproductive. Denies palpitations No fever or chills, no chest pain or significant shortness of breath. Reason For Visit: ACUTE RENAL FAILURE,SUPRATHERAPEUTIC INTERNATIONAL Physical Exam Vital Signs: Temp Pulse Resp BP Pulse Ox 97.6 F 83 18 142/79 H 99 11/23/17 17:36 11/23/17 19:37 11/23/17 19:37 11/23/17 17:36 11/23/17 19:37 Intake & Output 11/22/17 11/23/17 11/24/17 06:59 06:59 06:59 Intake Total 1898 3193 974 Output Total 500 Balance 1898 2693 974 Weight 99.1 kg 98.1 kg GENERAL: Well-developed, no acute distress CARDIOVASCULAR: Regular, normal S1-S2 LUNGS: Few wheezing bilaterally ABDOMEN: Soft, NT, NL bowel sounds EXTREMITIES: 1+ pedal edema, no clubbing, cyanosis NEUROLOGICAL: Alert, oriented x 3, no focal weakness Results Laboratory Results: 11/23/17 08:30 11/23/17 10:07 11/23/17 11/23/17 08:30 10:07 WBC 10.2 RBC 4.08 L Hgb 11.7 L Hct 34.0 L MCV 83 MCH 28.7 MCHC 34.5 RDW 16.7 H Plt Count 228 Seg Neutrophils % Not Reportable Lymphocytes % Not Reportable Monocytes % Not Reportable Eosinophils % Not Reportable Basophils % Not Reportable Absolute Neutrophils Not Reportable Absolute Lymphocytes Not Reportable Absolute Monocytes Not Reportable Absolute Eosinophils Not Reportable Absolute Basophils Not Reportable Sodium 136.6 L Potassium 3.4 L Chloride 104 Carbon Dioxide 21 L Anion Gap 12 BUN 12 Creatinine 0.79 Est GFR ( Amer) > 60 Est GFR (Non-Af Amer) > 60 Glucose 246 H Calcium 8.8 11/20/17 11/20/17 11/20/17 18:30 18:30 23:25 Creatine Kinase 70 76 CK-MB (CK-2) 1.42 Troponin I 0.064 11/20/17 11/21/17 11/21/17 23:25 05:35 05:35 Creatine Kinase 74 CK-MB (CK-2) 1.31 1.33 Troponin I 0.063 0.066 Impressions: Chest X-Ray 11/20/17 10:18 IMPRESSION: NO SIGNIFICANT RADIOGRAPHIC FINDING IN THE CHEST. HARDWARE/SUPPORT DEVICE(S) IN APPROPRIATE AND EXPECTED LOCATION. Assessment & Plan - Diagnosis (1) Acute renal failure Qualifiers: Acute renal failure type: unspecified Qualified Code(s): N17.9 - Acute kidney failure, unspecified Is this a current diagnosis for this admission?: Yes Plan: Improved. Off IV fluids given history of cardiomyopathy. Follow-up Chem-7 in a.m. (2) Atrial fibrillation Qualifiers: Atrial fibrillation type: unspecified Qualified Code(s): I48.91 - Unspecified atrial fibrillation Is this a current diagnosis for this admission?: Yes Plan: Patient/rate controlled at this time. Albuterol was changed to Xopenex. (3) Hypotension Qualifiers: Hypotension type: unspecified hypotension type Qualified Code(s): I95.9 - Hypotension, unspecified Is this a current diagnosis for this admission?: Yes Plan: Improved. Continue to monitor. (4) Supratherapeutic INR Is this a current diagnosis for this admission?: Yes Plan: Resolved. Restart Coumadin 11/22/17. Continue to monitor INR. Lovenox bridge for now. (5) Cardiomyopathy Qualifiers: Cardiomyopathy type: unspecified Qualified Code(s): I42.9 - Cardiomyopathy , unspecified Is this a current diagnosis for this admission?: Yes Plan: EF 25%. Cardiology evaluation appreciated. Carvedilol and Entresto restarted. (6) Cough Is this a current diagnosis for this admission?: Yes Plan: Secondary to viral illness. Possible mild bronchospasm as well. Continue with nebs, low-dose steroids.
[2017-11-23] MEDS ORDERED: POTASSIUM CHLORIDE 10 MEQ TABLET.SA PO ONE (21:30)
[2017-11-23] MEDS: WARFARIN SODIUM 5 MG TABLET PO SCH (21:47)
[2017-11-23] MEDS: ENOXAPARIN SODIUM INJ 100 MG/1 ML DISP.SYRIN SUBCUT SCH (21:48)
[2017-11-24 00:57] LABS: APPEARANCE,URINE CLEAR; BILIRUBIN,URINE NEGATIVE (NEGATIVE); COLOR,URINE YELLOW; GLUCOSE, URINE NEGATIVE (NEGATIVE); KETONES,URINE NEGATIVE (NEGATIVE); LEUKOCYTE ESTERASE,URINE NEGATIVE (NEGATIVE); NITRITE,URINE NEGATIVE (NEGATIVE); PROTEIN,URINE NEGATIVE (NEGATIVE); URINE SPECIFIC GRAVITY 1.008; UROBILINOGEN,URINE NEGATIVE mg/dL (<2.0)
[2017-11-24] MEDS: LEVALBUTEROL HCL NEB 1.25 MG/3 ML AMPUL NEB SCH ×4 (01:50→19:30)
[2017-11-24] MEDS: CARVEDILOL 6.25 MG TABLET PO SCH ×2 (05:18→19:01)
[2017-11-24 05:19] LABS: INTERNATIONAL RATION (INR) 1.32; PROTHROMBIN TIME 17.2 SEC (11.4-15.4)
[2017-11-24] MEDS: MIDODRINE HCL 5 MG TABLET PO SCH ×3 (05:19→18:11)
[2017-11-24 05:40] LABS: HEMATOCRIT 33.7 % (37.9-51.0); HEMOGLOBIN 11.4 g/dL (13.5-17.0); MEAN CORPUSCULAR HEMOGLOBIN 28.4 pg (27.0-33.4); MEAN CORPUSCULAR HGB CONC 33.7 g/dL (32.0-36.0); MEAN CORPUSCULAR VOLUME 84 fl (80-97); PLATELET COUNT 230 10^3/uL (150-450); RED CELL DISTRIBUTION WIDTH 16.3 % (11.5-14.0)
[2017-11-24 05:43] LABS: ANION GAP 11 (5-19); BLOOD UREA NITROGEN 14 mg/dL (7-20); CALCIUM 9.3 mg/dL (8.4-10.2); CARBON DIOXIDE 23 mmol/L (22-30); CHLORIDE 106 mmol/L (98-107); GLUCOSE 142 mg/dL (75-110); POTASSIUM 4.2 mmol/L (3.6-5.0); SODIUM 139.8 mmol/L (137-145)
[2017-11-24 06:37] LABS: ABSOLUTE LYMPHOCYTES# (MANUAL) 0.4 10^3/uL (0.5-4.7); ABSOLUTE MONOCYTES # (MANUAL) 0.1 10^3/uL (0.1-1.4); ABSOLUTE NEUTROPHILS# (MANUAL) 13.4 10^3/uL (1.7-8.2); ANISOCYTOSIS 1+; BASOPHILS % (MANUAL) 0 % (0-2); EOSINOPHILS % (MANUAL) 0 % (0-6); LYMPHOCYTES % (MANUAL) 3 % (13-45); MONOCYTES % (MANUAL) 1 % (3-13); OVALOCYTES SLIGHT; SEGMENTED NEUTROPHILS % (MAN) 96 % (42-78); TEAR DROP CELLS SLIGHT; TOTAL CELLS COUNTED 100
[2017-11-24 06:38] LABS: SCHISTOCYTES SLIGHT
[2017-11-24 06:39] LABS: PLATELET COMMENT ADEQUATE; PLATELET LARGE PRESENT
[2017-11-24] MEDS: INSULIN LISPRO 100 UNIT/ML 3 ML VIAL SUBCUT PRN ×2 (08:21→19:01)
[2017-11-24] MEDS: HYDROCODONE BIT/HOMATROPINE 5-1.5 MG TABLET PO PRN ×2 (08:29→21:59)
[2017-11-24] MEDS: TORSEMIDE 20 MG TABLET PO SCH (10:38)
[2017-11-24] MEDS: DOCUSATE SODIUM 100 MG CAPSULE PO SCH ×2 (10:38→21:55)
[2017-11-24] MEDS: ENOXAPARIN SODIUM INJ 100 MG/1 ML DISP.SYRIN SUBCUT SCH ×2 (10:39→21:55)
[2017-11-24] MEDS: PREDNISONE 20 MG TABLET PO SCH ×2 (10:39→21:55)
[2017-11-24] MEDS: SPIRONOLACTONE 25 MG TABLET PO SCH (10:39)
[2017-11-24] MEDS: SACUBITRIL/VALSARTAN 24 MG/26 MG TABLET PO SCH ×2 (10:39→21:58)
--- NOTE | 2017-11-24 13:32 | PDOC PROGRESS REPORT ---
Subjective Progress Note for:: 11/24/17 Subjective:: Doing better, cough improved, remains nonproductive. Denies palpitations. No fever or chills, no chest pain or significant shortness of breath. Reason For Visit: ACUTE RENAL FAILURE,SUPRATHERAPEUTIC INTERNATIONAL Physical Exam Vital Signs: Temp Pulse Resp BP Pulse Ox 97.5 F 97 16 132/78 H 97 11/24/17 11:32 11/24/17 11:32 11/24/17 11:32 11/24/17 11:32 11/24/17 11:32 Intake & Output 11/23/17 11/24/17 11/25/17 06:59 06:59 06:59 Intake Total 3193 1558 Output Total 500 300 Balance 2693 1258 Weight 98.1 kg 103 kg GENERAL: Well-developed, no acute distress CARDIOVASCULAR: Regular, normal S1-S2 LUNGS: Few basilar crackles ABDOMEN: Soft, NT, NL bowel sounds EXTREMITIES: 1+ pedal edema, no clubbing, cyanosis NEUROLOGICAL: Alert, oriented x 3, no focal weakness Results Laboratory Results: 11/24/17 04:42 11/24/17 04:42 INR = 1.3 11/23/17 11/24/17 11/24/17 22:13 04:42 04:42 WBC 14.0 H RBC 4.00 L Hgb 11.4 L Hct 33.7 L MCV 84 MCH 28.4 MCHC 33.7 RDW 16.3 H Plt Count 230 Seg Neutrophils % Not Reportable Lymphocytes % Not Reportable Monocytes % Not Reportable Eosinophils % Not Reportable Basophils % Not Reportable Absolute Neutrophils Not Reportable Absolute Lymphocytes Not Reportable Absolute Monocytes Not Reportable Absolute Eosinophils Not Reportable Absolute Basophils Not Reportable Sodium 139.8 Potassium 4.2 Chloride 106 Carbon Dioxide 23 Anion Gap 11 BUN 14 Creatinine 0.94 Est GFR ( Amer) > 60 Est GFR (Non-Af Amer) > 60 Glucose 142 H Calcium 9.3 Urine Color YELLOW Urine Appearance CLEAR Urine pH 6.0 Ur Specific [place] 1.008 Urine Protein NEGATIVE Urine Glucose (UA) NEGATIVE Urine Ketones NEGATIVE Urine Blood NEGATIVE Urine Nitrite NEGATIVE Ur Leukocyte Esterase NEGATIVE Urine WBC (Auto) 1 11/20/17 11/20/17 11/20/17 18:30 18:30 23:25 Creatine Kinase 70 76 CK-MB (CK-2) 1.42 Troponin I 0.064 11/20/17 11/21/17 11/21/17 23:25 05:35 05:35 Creatine Kinase 74 CK-MB (CK-2) 1.31 1.33 Troponin I 0.063 0.066 Impressions: Chest X-Ray 11/20/17 10:18 IMPRESSION: NO SIGNIFICANT RADIOGRAPHIC FINDING IN THE CHEST. HARDWARE/SUPPORT DEVICE(S) IN APPROPRIATE AND EXPECTED LOCATION. Assessment & Plan - Diagnosis (1) Acute renal failure Qualifiers: Acute renal failure type: unspecified Qualified Code(s): N17.9 - Acute kidney failure, unspecified Is this a current diagnosis for this admission?: Yes Plan: Improved. Off IV fluids given history of cardiomyopathy. Continue to monitor Chem-7. (2) Atrial fibrillation Qualifiers: Atrial fibrillation type: unspecified Qualified Code(s): I48.91 - Unspecified atrial fibrillation Is this a current diagnosis for this admission?: Yes Plan: Patient/rate controlled at this time. Albuterol was changed to Xopenex 11/22/17. (3) Hypotension Qualifiers: Hypotension type: unspecified hypotension type Qualified Code(s): I95.9 - Hypotension, unspecified Is this a current diagnosis for this admission?: Yes Plan: Improved. Continue to monitor. (4) Supratherapeutic INR Is this a current diagnosis for this admission?: Yes Plan: Resolved. Restarted Coumadin 11/22/17. Continue to monitor INR. Lovenox bridge for now pending therapeutic INR. (5) Cardiomyopathy Qualifiers: Cardiomyopathy type: unspecified Qualified Code(s): I42.9 - Cardiomyopathy , unspecified Is this a current diagnosis for this admission?: Yes Plan: EF 25%. Cardiology evaluation appreciated. Carvedilol and Entresto have been restarted and BPs tolerating. (6) Cough Is this a current diagnosis for this admission?: Yes Plan: Secondary to viral illness. This improved. Possible mild bronchospasm as well. Continue with nebs, low-dose steroids.
[2017-11-24] MEDS: WARFARIN SODIUM 5 MG TABLET PO SCH (21:55)
--- NOTE | 2017-11-24 22:50 | PDOC PROGRESS REPORT ---
Subjective Progress Note for:: 11/24/17 Subjective:: Blood pressure noted to be stable. Have placed patient on carvedilol. May consider to reduce Midodrin dose. Have stopped IV fluids. Patient seems to be doing better with gradual improvement. Pt is denying any chest arm or neck discomfort. Patient denying any PND, orthopnea. Patient denied any sustained palpitations, dizziness, syncope, near syncope. Patient denying any fever chills. Patient denying any other significant discomfort. Patient is maintaining atrial fibrillation with ventricular paced beats Review of systems: Rest review of systems negative. Medications: Medications have been reviewed. Reason For Visit: ACUTE RENAL FAILURE,SUPRATHERAPEUTIC INTERNATIONAL Physical Exam Vital Signs: Temp Pulse Resp BP Pulse Ox 97.9 F 86 20 111/69 99 11/24/17 20:15 11/24/17 20:15 11/24/17 20:15 11/24/17 20:15 11/24/17 20:15 Intake & Output 11/23/17 11/24/17 11/25/17 06:59 06:59 06:59 Intake Total 3193 1558 1118 Output Total 500 300 Balance 2693 1258 1118 Weight 98.1 kg 103 kg Exam: GENERAL: well-nourished and in no acute distress. Alert and oriented x3 HEAD: Atraumatic, normocephalic. EYES: Pupils equal round and reactive to light, extraocular movements intact, sclera anicteric, conjunctiva are normal. ENT: TMs normal, nares patent, oropharynx clear without exudates. Moist mucous membranes. No oral ulcerations or bleeding gums noted NECK: supple without lymphadenopathy. Trachea is central. No cervical or axillary lymphadenopathy noted. Carotids are 2+, JVD WNL LUNGS: Respiration seems nonlabored, no significant accessory muscle action noted. Breath sounds clear to auscultation bilaterally and equal noted. No wheezes rales or rhonchi noted. No significant dullness noted on percussion. CHEST: Palpation of the chest wall shows no significant chest wall tenderness. No other significant abnormalities noted. 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 ABDOMEN: Soft, no significant tenderness appreciated, normoactive bowel sounds. No guarding, no rebound. No rigidity noted . No masses appreciated. EXTREMITIES: Pedal pulses are 1-2+, no calf tenderness noted. No clubbing or cyanosis.trace to 1+ pedal edema noted NEUROLOGICAL: Focused neurological exam showed no significant neurologic deficit. Normal speech, no focal weakness appreciated. PSYCH: Normal mood, normal affect. Judgment and insight within normal limits. SKIN: No significant ecchymosis, rash, ulcerations or signs of pruritus noted. MUSCULOSKELETAL EXAM: No significant joint swelling noted. Results Laboratory Results: 11/24/17 04:42 11/24/17 04:42 11/23/17 11/24/17 11/24/17 22:13 04:42 04:42 WBC 14.0 H RBC 4.00 L Hgb 11.4 L Hct 33.7 L MCV 84 MCH 28.4 MCHC 33.7 RDW 16.3 H Plt Count 230 Seg Neutrophils % Not Reportable Lymphocytes % Not Reportable Monocytes % Not Reportable Eosinophils % Not Reportable Basophils % Not Reportable Absolute Neutrophils Not Reportable Absolute Lymphocytes Not Reportable Absolute Monocytes Not Reportable Absolute Eosinophils Not Reportable Absolute Basophils Not Reportable Sodium 139.8 Potassium 4.2 Chloride 106 Carbon Dioxide 23 Anion Gap 11 BUN 14 Creatinine 0.94 Est GFR ( Amer) > 60 Est GFR (Non-Af Amer) > 60 Glucose 142 H Calcium 9.3 Urine Color YELLOW Urine Appearance CLEAR Urine pH 6.0 Ur Specific [place] 1.008 Urine Protein NEGATIVE Urine Glucose (UA) NEGATIVE Urine Ketones NEGATIVE Urine Blood NEGATIVE Urine Nitrite NEGATIVE Ur Leukocyte Esterase NEGATIVE Urine WBC (Auto) 1 Stool Occult Blood 11/24/17 22:00 WBC RBC Hgb Hct MCV MCH MCHC RDW Plt Count Seg Neutrophils % Lymphocytes % Monocytes % Eosinophils % Basophils % Absolute Neutrophils Absolute Lymphocytes Absolute Monocytes Absolute Eosinophils Absolute Basophils Sodium Potassium Chloride Carbon Dioxide Anion Gap BUN Creatinine Est GFR ( Amer) Est GFR (Non-Af Amer) Glucose Calcium Urine Color Urine Appearance Urine pH Ur Specific [place] Urine Protein Urine Glucose (UA) Urine Ketones Urine Blood Urine Nitrite Ur Leukocyte Esterase Urine WBC (Auto) Stool Occult Blood NEGATIVE 11/20/17 11/20/17 11/20/17 18:30 18:30 23:25 Creatine Kinase 70 76 CK-MB (CK-2) 1.42 Troponin I 0.064 02/13/18 02/14/18 02/14/18 23:25 05:35 05:35 Creatine Kinase 74 CK-MB (CK-2) 1.31 1.33 Troponin I 0.063 0.066 EKG Comments: Telemetry strips shows atrial fibrillation with controlled ventricular response. Impressions: Chest X-Ray 11/20/17 10:18 IMPRESSION: NO SIGNIFICANT RADIOGRAPHIC FINDING IN THE CHEST. HARDWARE/SUPPORT DEVICE(S) IN APPROPRIATE AND EXPECTED LOCATION. Assessment & Plan - Diagnosis (1) Hypotension (arterial) Qualifiers: Hypotension type: unspecified hypotension type Qualified Code(s): I95.9 - Hypotension, unspecified Is this a current diagnosis for this admission?: Yes (2) Atrial fibrillation Qualifiers: Atrial fibrillation type: unspecified Qualified Code(s): I48.91 - Unspecified atrial fibrillation Is this a current diagnosis for this admission?: Yes (3) Cardiomyopathy Qualifiers: Cardiomyopathy type: unspecified Qualified Code(s): I42.9 - Cardiomyopathy , unspecified Is this a current diagnosis for this admission?: Yes (4) Coronary artery disease Qualifiers: Coronary Disease-Associated Artery/Lesion type: [place] artery [place] vs. transplanted heart: [place] heart Associated angina: angina presence unspecified Qualified Code(s): I25.10 - Atherosclerotic heart disease of [place] coronary artery without angina pectoris Is this a current diagnosis for this admission?: Yes (5) Sleep disorder Is this a current diagnosis for this admission?: Yes (6) Congestive heart failure Qualifiers: Heart failure type: combined systolic and diastolic Heart failure chronicity: acute on chronic Qualified Code(s): I50.43 - Acute on chronic combined systolic (congestive) and diastolic (congestive) heart failure Is this a current diagnosis for this admission?: Yes (7) Supratherapeutic INR Is this a current diagnosis for this admission?: Yes - Notes Notes: Hold Midodrine. Hold parameters written. Increase Entresto, Coreg as tolerated. Hypotension: Improved blood pressure now is stable. started entresto yesterday and also carvedilol today. Monitor BP closely. May consider to lower dose of midodrine. Midrin currently placed on hold. Atrial fibrillation: Resume chronic anticoagulation when feasible. Cardiomyopathy: Also started spironolactone 25 mg p.o. daily as patient noted to have some hypokalemia. Currently on low-dose entresto and carvedilol, May also consider digoxin therapy at low-dose. Coronary artery disease: Symptomatically stable. Sleep disorder: Patient will benefit from a sleep evaluation as patient likely to have underlying sleep apnea syndrome. CHF: Currently compensated. Supratherapeutic INR: Patient restarted back on Coumadin. May consider Lovenox bridge or at least DVT prophylaxis Lovenox due to prior history of stroke, CHF etc. - Time Time with patient: Greater than 35 minutes - CODE STATUS was discussed, patient remains full code. Surrogate decision-maker unchanged. Multiple medical problems were addressed. More than 50% of the time spent coordinating care, discussing management plans with involved caregivers. Management plans discussed with involved personnels. Medical decision making was of moderate to high complexity, patient's has multiple comorbidities.
[2017-11-25] MEDS: LEVALBUTEROL HCL NEB 1.25 MG/3 ML AMPUL NEB SCH ×4 (01:49→19:57)
[2017-11-25] MEDS: CARVEDILOL 6.25 MG TABLET PO SCH ×2 (06:00→17:26)
[2017-11-25] MEDS: MIDODRINE HCL 5 MG TABLET PO SCH ×3 (06:02→17:23)
[2017-11-25] MEDS: HYDROCODONE BIT/HOMATROPINE 5-1.5 MG TABLET PO PRN ×2 (06:43→17:26)
[2017-11-25] MEDS: ACETAMINOPHEN 325 MG TABLET PO PRN ×2 (08:31→17:28)
[2017-11-25] MEDS: INSULIN LISPRO 100 UNIT/ML 3 ML VIAL SUBCUT PRN ×3 (08:31→23:26)
[2017-11-25 09:57] LABS: INTERNATIONAL RATION (INR) 1.56; PROTHROMBIN TIME 19.6 SEC (11.4-15.4)
[2017-11-25 09:58] LABS: ABSOLUTE LYMPHOCYTES (AUTO) 0.7 10^3/uL (0.5-4.7); ABSOLUTE MONOCYTES (AUTO) 0.5 10^3/uL (0.1-1.4); ABSOLUTE NEUT (AUTO) 11.3 10^3/uL (1.7-8.2); BASOPHILS % (AUTO) 0.3 % (0-2); HEMATOCRIT 36.6 % (37.9-51.0); HEMOGLOBIN 12.1 g/dL (13.5-17.0); LYMPHOCYTES % (AUTO) 5.5 % (13-45); MEAN CORPUSCULAR HEMOGLOBIN 28.3 pg (27.0-33.4); MEAN CORPUSCULAR HGB CONC 33.2 g/dL (32.0-36.0); MEAN CORPUSCULAR VOLUME 85 fl (80-97); MONOCYTES % (AUTO) 3.8 % (3-13); PLATELET COUNT 276 10^3/uL (150-450); RED BLOOD COUNT 4.29 10^6/uL (4.35-5.55); RED CELL DISTRIBUTION WIDTH 16.6 % (11.5-14.0); SEGMENTED NEUTROPHILS % (AUTO) 90.4 % (42-78); TOTAL CELLS COUNTED % (AUTO) 100 %; WHITE BLOOD COUNT 12.5 10^3/uL (4.0-10.5)
[2017-11-25 10:06] LABS: ANION GAP 12 (5-19); BLOOD UREA NITROGEN 18 mg/dL (7-20); CALCIUM 9.4 mg/dL (8.4-10.2); CARBON DIOXIDE 23 mmol/L (22-30); CHLORIDE 103 mmol/L (98-107); GLUCOSE 133 mg/dL (75-110); SODIUM 138.1 mmol/L (137-145)
[2017-11-25] MEDS: SACUBITRIL/VALSARTAN 24 MG/26 MG TABLET PO SCH ×2 (10:36→21:17)
[2017-11-25] MEDS: TORSEMIDE 20 MG TABLET PO SCH (10:36)
[2017-11-25] MEDS: ENOXAPARIN SODIUM INJ 100 MG/1 ML DISP.SYRIN SUBCUT SCH ×2 (10:36→21:16)
[2017-11-25] MEDS: SPIRONOLACTONE 25 MG TABLET PO SCH (10:36)
[2017-11-25] MEDS: DOCUSATE SODIUM 100 MG CAPSULE PO SCH ×2 (10:36→21:16)
[2017-11-25] MEDS: PREDNISONE 20 MG TABLET PO SCH ×2 (10:36→21:17)
--- NOTE | 2017-11-25 12:22 | PDOC PROGRESS REPORT ---
Subjective Subjective:: Doing better, cough remains improved, continue to be dry. Denies palpitations. No fever or chills, no chest pain or significant shortness of breath. Reason For Visit: ACUTE RENAL FAILURE,SUPRATHERAPEUTIC INTERNATIONAL Physical Exam Vital Signs: Temp Pulse Resp BP Pulse Ox 97.4 F 95 16 129/87 H 95 11/25/17 04:17 11/25/17 07:45 11/25/17 07:45 11/25/17 04:17 11/25/17 07:45 Intake & Output 11/24/17 11/25/17 11/26/17 06:59 06:59 06:59 Intake Total 1558 1928 Output Total 300 Balance 1258 1928 Weight 103 kg 103.1 kg GENERAL: Well-developed, no acute distress CARDIOVASCULAR: Regular, normal S1-S2 LUNGS: Few basilar crackles ABDOMEN: Soft, NT, NL bowel sounds EXTREMITIES: 1+ pedal edema, no clubbing, cyanosis NEUROLOGICAL: Alert, oriented x 3, no focal weakness Results Laboratory Results: 11/25/17 08:46 11/25/17 08:46 11/24/17 11/25/17 11/25/17 22:00 08:46 08:46 WBC 12.5 H RBC 4.29 L Hgb 12.1 L Hct 36.6 L MCV 85 MCH 28.3 MCHC 33.2 RDW 16.6 H Plt Count 276 Seg Neutrophils % 90.4 H Lymphocytes % 5.5 L Monocytes % 3.8 Eosinophils % 0.0 Basophils % 0.3 Absolute Neutrophils 11.3 H Absolute Lymphocytes 0.7 Absolute Monocytes 0.5 Absolute Eosinophils 0.0 Absolute Basophils 0.0 Sodium 138.1 Potassium 4.0 Chloride 103 Carbon Dioxide 23 Anion Gap 12 BUN 18 Creatinine 0.83 Est GFR ( Amer) > 60 Est GFR (Non-Af Amer) > 60 Glucose 133 H Calcium 9.4 Stool Occult Blood NEGATIVE 11/20/17 11/20/17 11/20/17 18:30 18:30 23:25 Creatine Kinase 70 76 CK-MB (CK-2) 1.42 Troponin I 0.064 11/20/17 11/21/17 11/21/17 23:25 05:35 05:35 Creatine Kinase 74 CK-MB (CK-2) 1.31 1.33 Troponin I 0.063 0.066 Impressions: Chest X-Ray 11/20/17 10:18 IMPRESSION: NO SIGNIFICANT RADIOGRAPHIC FINDING IN THE CHEST. HARDWARE/SUPPORT DEVICE(S) IN APPROPRIATE AND EXPECTED LOCATION. Assessment & Plan - Diagnosis (1) Acute renal failure Qualifiers: Acute renal failure type: unspecified Qualified Code(s): N17.9 - Acute kidney failure, unspecified Is this a current diagnosis for this admission?: Yes Plan: Improved. Has since been off IV fluids given history of cardiomyopathy. Continue to monitor Chem-7. (2) Atrial fibrillation Qualifiers: Atrial fibrillation type: unspecified Qualified Code(s): I48.91 - Unspecified atrial fibrillation Is this a current diagnosis for this admission?: Yes Plan: Patient/rate controlled at this time. Albuterol was changed to Xopenex 11/22/17. (3) Hypotension Qualifiers: Hypotension type: unspecified hypotension type Qualified Code(s): I95.9 - Hypotension, unspecified Is this a current diagnosis for this admission?: Yes Plan: Improved. Continue to monitor. (4) Supratherapeutic INR Is this a current diagnosis for this admission?: Yes Plan: Resolved. Restarted Coumadin 11/22/17. Continue to monitor INR. Lovenox bridge for now pending therapeutic INR. (5) Cardiomyopathy Qualifiers: Cardiomyopathy type: unspecified Qualified Code(s): I42.9 - Cardiomyopathy , unspecified Is this a current diagnosis for this admission?: Yes Plan: EF 25%. Cardiology evaluation appreciated. Carvedilol and Entresto have been restarted and BPs tolerating. (6) Cough Is this a current diagnosis for this admission?: Yes Plan: Secondary to viral illness. This is improved. Possible mild bronchospasm as well. Continue with nebs, low-dose steroids.
--- NOTE | 2017-11-25 17:20 | PDOC PROGRESS REPORT ---
Subjective Progress Note for:: 11/25/17 Subjective:: Blood pressure noted to be stable. Have increased carvedilol to 6.25 p.o. every 12. May consider increasing entresto if blood pressure remains well. Patient denies any recent ischemia workup. Patient is interested in pursuing a nuclear stress test while he is here. Patient being scheduled for a stress test. Will obtain an EKG to make sure there are no new changes. Patient seems to be doing better with gradual improvement. Pt is denying any chest arm or neck discomfort. Patient denying any PND, orthopnea. Patient denied any sustained palpitations, dizziness, syncope, near syncope. Patient denying any fever chills. Patient denying any other significant discomfort. Patient is maintaining atrial fibrillation with ventricular paced beats Review of systems: Rest review of systems negative. Medications: Medications have been reviewed. Reason For Visit: ACUTE RENAL FAILURE,SUPRATHERAPEUTIC INTERNATIONAL Physical Exam Vital Signs: Temp Pulse Resp BP Pulse Ox 98.1 F 93 16 115/62 99 11/25/17 16:18 11/25/17 16:18 11/25/17 16:18 11/25/17 16:18 11/25/17 16:18 Intake & Output 11/24/17 11/25/17 11/26/17 06:59 06:59 06:59 Intake Total 1558 1928 840 Output Total 300 Balance 1258 1928 840 Weight 103 kg 103.1 kg Exam: GENERAL: well-nourished and in no acute distress. Alert and oriented x3 HEAD: Atraumatic, normocephalic. EYES: Pupils equal round and reactive to light, extraocular movements intact, sclera anicteric, conjunctiva are normal. ENT: TMs normal, nares patent, oropharynx clear without exudates. Moist mucous membranes. No oral ulcerations or bleeding gums noted NECK: supple without lymphadenopathy. Trachea is central. No cervical or axillary lymphadenopathy noted. Carotids are 2+, JVD WNL LUNGS: Respiration seems nonlabored, no significant accessory muscle action noted. Breath sounds clear to auscultation bilaterally and equal noted. No wheezes rales or rhonchi noted. No significant dullness noted on percussion. CHEST: Palpation of the chest wall shows no significant chest wall tenderness. No other significant abnormalities noted. 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 ABDOMEN: Soft, no significant tenderness appreciated, normoactive bowel sounds. No guarding, no rebound. No rigidity noted . No masses appreciated. EXTREMITIES: Pedal pulses are 1-2+, no calf tenderness noted. No clubbing or cyanosis.trace to 1+ pedal edema noted NEUROLOGICAL: Focused neurological exam showed no significant neurologic deficit. Normal speech, no focal weakness appreciated. PSYCH: Normal mood, normal affect. Judgment and insight within normal limits. SKIN: No significant ecchymosis, rash, ulcerations or signs of pruritus noted. MUSCULOSKELETAL EXAM: No significant joint swelling noted. Results Laboratory Results: 11/25/17 08:46 11/25/17 08:46 11/24/17 11/25/17 11/25/17 22:00 08:46 08:46 WBC 12.5 H RBC 4.29 L Hgb 12.1 L Hct 36.6 L MCV 85 MCH 28.3 MCHC 33.2 RDW 16.6 H Plt Count 276 Seg Neutrophils % 90.4 H Lymphocytes % 5.5 L Monocytes % 3.8 Eosinophils % 0.0 Basophils % 0.3 Absolute Neutrophils 11.3 H Absolute Lymphocytes 0.7 Absolute Monocytes 0.5 Absolute Eosinophils 0.0 Absolute Basophils 0.0 Sodium 138.1 Potassium 4.0 Chloride 103 Carbon Dioxide 23 Anion Gap 12 BUN 18 Creatinine 0.83 Est GFR ( Amer) > 60 Est GFR (Non-Af Amer) > 60 Glucose 133 H Calcium 9.4 Stool Occult Blood NEGATIVE 11/20/17 11/20/17 11/20/17 18:30 18:30 23:25 Creatine Kinase 70 76 CK-MB (CK-2) 1.42 Troponin I 0.064 11/20/17 11/21/17 11/21/17 23:25 05:35 05:35 Creatine Kinase 74 CK-MB (CK-2) 1.31 1.33 Troponin I 0.063 0.066 Impressions: Chest X-Ray 11/20/17 10:18 IMPRESSION: NO SIGNIFICANT RADIOGRAPHIC FINDING IN THE CHEST. HARDWARE/SUPPORT DEVICE(S) IN APPROPRIATE AND EXPECTED LOCATION. Assessment & Plan - Diagnosis (1) Hypotension (arterial) Qualifiers: Hypotension type: unspecified hypotension type Qualified Code(s): I95.9 - Hypotension, unspecified Is this a current diagnosis for this admission?: Yes (2) Atrial fibrillation Qualifiers: Atrial fibrillation type: unspecified Qualified Code(s): I48.91 - Unspecified atrial fibrillation Is this a current diagnosis for this admission?: Yes (3) Cardiomyopathy Qualifiers: Cardiomyopathy type: unspecified Qualified Code(s): I42.9 - Cardiomyopathy , unspecified Is this a current diagnosis for this admission?: Yes (4) Coronary artery disease Qualifiers: Coronary Disease-Associated Artery/Lesion type: [place] artery [place] vs. transplanted heart: [place] heart Associated angina: angina presence unspecified Qualified Code(s): I25.10 - Atherosclerotic heart disease of [place] coronary artery without angina pectoris Is this a current diagnosis for this admission?: Yes (5) Sleep disorder Is this a current diagnosis for this admission?: Yes (6) Congestive heart failure Qualifiers: Heart failure type: combined systolic and diastolic Heart failure chronicity: acute on chronic Qualified Code(s): I50.43 - Acute on chronic combined systolic (congestive) and diastolic (congestive) heart failure Is this a current diagnosis for this admission?: Yes (7) Supratherapeutic INR Is this a current diagnosis for this admission?: Yes - Notes Notes: Patient medical regimen is being optimized. Patient has not had any further Midodrin. Have increased carvedilol to 6.25 mg p.o. every 12. Will add digoxin to the regimen. Patient being scheduled for a stress test. Will get an EKG done to look for any changes.. Hypotension: Improved blood pressure now is stable. started entresto yesterday and also carvedilol today. Monitor BP closely. May consider to lower dose of midodrine. Atrial fibrillation: Resume chronic anticoagulation when feasible. Cardiomyopathy: Also started spironolactone 25 mg p.o. daily as patient noted to have some hypokalemia. Currently on low-dose entresto and carvedilol, May also consider digoxin therapy at low-dose. Coronary artery disease: Symptomatically stable. Sleep disorder: Patient will benefit from a sleep evaluation as patient likely to have underlying sleep apnea syndrome. CHF: Currently compensated. Supratherapeutic INR: Patient restarted back on Coumadin. May consider Lovenox bridge or at least DVT prophylaxis Lovenox due to prior history of stroke, CHF etc. - Time Time with patient: Greater than 35 minutes - CODE STATUS was discussed, patient remains full code. Surrogate decision-maker unchanged. Multiple medical problems were addressed. More than 50% of the time spent coordinating care, discussing management plans with involved caregivers. Management plans discussed with involved personnels. Medical decision making was of moderate to high complexity, patient's has multiple comorbidities. Medications reviewed and adjusted accordingly: Yes
--- NOTE | 2017-11-25 18:35 | EKG REPORT ---
SEVERITY:- ABNORMAL ECG - VENTRICULAR-PACED COMPLEXES LEFT POSTERIOR FASCICULAR BLOCK NONSPECIFIC T ABNORMALITIES, LATERAL LEADS VPCs : Confirmed by: Barry Barrow 25-Nov-2017 18:33:58
[2017-11-25] MEDS: GUAIFENESIN/CODEINE PHOS 100-10 MG/ 5 ML UDC PO PRN (21:16)
[2017-11-25] MEDS: WARFARIN SODIUM 5 MG TABLET PO SCH (21:16)
[2017-11-25] MEDS: BENZOCAINE/MENTHOL SORE THROAT LOZENGE BUCCAL PRN (21:16)
[2017-11-26 01:36] LABS: APPEARANCE,URINE CLEAR; BILIRUBIN,URINE NEGATIVE (NEGATIVE); COLOR,URINE YELLOW; GLUCOSE, URINE NEGATIVE (NEGATIVE); KETONES,URINE NEGATIVE (NEGATIVE); LEUKOCYTE ESTERASE,URINE NEGATIVE (NEGATIVE); NITRITE,URINE NEGATIVE (NEGATIVE); PROTEIN,URINE NEGATIVE (NEGATIVE); URINE SPECIFIC GRAVITY 1.013; UROBILINOGEN,URINE NEGATIVE mg/dL (<2.0)
[2017-11-26] MEDS: LEVALBUTEROL HCL NEB 1.25 MG/3 ML AMPUL NEB SCH ×3 (02:15→14:44)
[2017-11-26] MEDS: MIDODRINE HCL 5 MG TABLET PO SCH (05:36)
[2017-11-26 05:39] LABS: INTERNATIONAL RATION (INR) 2.31; PROTHROMBIN TIME 26.6 SEC (11.4-15.4)
[2017-11-26 09:03] LABS: HEMATOCRIT 34.9 % (37.9-51.0); HEMOGLOBIN 11.7 g/dL (13.5-17.0); MEAN CORPUSCULAR HEMOGLOBIN 28.5 pg (27.0-33.4); MEAN CORPUSCULAR HGB CONC 33.5 g/dL (32.0-36.0); MEAN CORPUSCULAR VOLUME 85 fl (80-97); PLATELET COUNT 244 10^3/uL (150-450); RED CELL DISTRIBUTION WIDTH 16.9 % (11.5-14.0); WHITE BLOOD COUNT 10.5 10^3/uL (4.0-10.5)
[2017-11-26 09:22] LABS: ANION GAP 11 (5-19); BLOOD UREA NITROGEN 23 mg/dL (7-20); CALCIUM 9.4 mg/dL (8.4-10.2); CARBON DIOXIDE 25 mmol/L (22-30); CHLORIDE 103 mmol/L (98-107); GLUCOSE 138 mg/dL (75-110); SODIUM 138.5 mmol/L (137-145)
[2017-11-26] MEDS: CARVEDILOL 6.25 MG TABLET PO SCH (10:53)
[2017-11-26] MEDS: BENZOCAINE/MENTHOL SORE THROAT LOZENGE BUCCAL PRN (10:53)
[2017-11-26] MEDS: DOCUSATE SODIUM 100 MG CAPSULE PO SCH (10:53)
[2017-11-26] MEDS: SPIRONOLACTONE 25 MG TABLET PO SCH (10:54)
[2017-11-26] MEDS: GUAIFENESIN/CODEINE PHOS 100-10 MG/ 5 ML UDC PO PRN (10:54)
[2017-11-26] MEDS: PREDNISONE 20 MG TABLET PO SCH (10:54)
[2017-11-26] MEDS: TORSEMIDE 20 MG TABLET PO SCH (12:09)
[2017-11-26] MEDS: SACUBITRIL/VALSARTAN 24 MG/26 MG TABLET PO SCH (12:10)
[2017-11-26] MEDS: INSULIN LISPRO 100 UNIT/ML 3 ML VIAL SUBCUT PRN (12:38)
--- NOTE | 2017-11-26 12:46 | DRAGON STRESS TEST REPORT ---
INTRAVENOUS LEXISCAN CARDIOLITE STRESS TEST USING SINGLE PHOTON EMMISION COMPUTERIZED TOMOGRAPHIC. DATE OF PROCEDURE: November 26, 2017, INDICATION : Coronary artery disease, cardiomyopathy CARDIAC RISK FACTORS: Diabetes, hypertension, dyslipidemia, history of CAD RESTING EKG: Atrial fibrillation with intermittent ventricular paced beats STRESS EKG: No significant changes noted with LexiScan bolus REASON FOR TERMINATION: Protocol. PROCEDURE REPORT: Baseline heart rate 101 beats per minute with blood pressure of 105/81. Patient had no significant complaints. Heart rate at 2 minutes post bolus 111 with a blood pressure of 108/73. 3 minutes post bolus heart rate 118 with blood pressure of 105/72. No significant EKG changes were noted. Patient had no significant complaints during the procedure or postprocedure. Patient injected with Aminophyllin 75 mg at 3 minutes or later after Lexiscan bolus. CONCLUSIONS: Normal EKG and hemodynamic response to IV LexiScan. NUCLEAR DATA: At rest the patient was given 14.89 millicuries of technetium 99 sestamibi injected intravenously. As per protocol rest gated SPECT images were obtained. On day of stress test, the patient was given intravenous LexiScan at a dose of 0.4 mg in 5 mL intravenously, followed by flush with normal saline. Subsequently the stress dose of 43.7 millicuries of technetium 99 sestamibi was injected intravenously. As per protocol stress gated images were obtained. NUCLEAR INTERPRETATION: Both raw and processed data were used for interpretation. Visual, qualitative, computer-generated quantitative data was used. There was good myocardial uptake of technetium compound. Motion artifact and soft tissue attenuations were noted. Increased visceral uptake was noted. Predominantly a large area of apical fixed defect noted with minimal surrounding area of transient perfusion defect. EKG gated imaging showed LV EF at 15 %, with diffuse hypokinesia and apical akinesia. T. I D. ratio was 1.13. Lung heart ratio noted to be within normal limits 0.49 but seems visually increased. No significant extracardiac and abnormal radiotracer activities were noted. RV free wall uptake was noted to be WNL. IMPRESSION: Also refer to comments under nuclear interpretation. Also test results needs to be interpreted in the context of pretest probability. 1. Predominantly a large area of apical fixed defect noted with minimal surrounding area of transient perfusion defect, this is indicative of scar involving the LV apex. May consider viability determination if clinically indicated. 2. Lung heart ratio noted to be visually increased. Could be related to CHF but could well be related to some intrinsic pulmonary disease. 3. EKG gated imaging shows left ventricular ejection fraction of approx. 15 %, with apical akinesia. 4. Clinical correlation requested as in approximately 10% of the cases Lexiscan may not cause adequate vasodilatory stress. RECOMMENDATIONS: Aggressive risk factor modification and medical management. Further evaluation may be needed if continued symptoms or other high risk indicators are noted on clinical evaluation. May consider viability determination if clinically indicated. Close cardiology follow-up is also recommended. Clinical correlation with echocardiogram derived ejection fraction. Inability to exercise by itself can lead to increased cardiovascular event risks. Consider cardiology consultation and or follow-up if clinically indicated. I am available for cardiology evaluation and consultation if requested by the airframe and powerplant technician, unless patient already has a industrial technologist. DAVIN
[2017-11-26] MEDS ORDERED: TORSEMIDE 20 MG TABLET PO ONE (12:53)
[2017-11-26] MEDS ORDERED: REGADENOSON INJ 0.4 MG/5 ML DISP.SYRIN IV ONE (15:21)
[2017-11-26] MEDS ORDERED: AMINOPHYLLINE INJ/PF 250 MG/10 ML SDV IV ONE (15:21)
[2017-11-26 18:00] VITALS: BP 133/82
--- NOTE | 2017-11-26 19:54 | PDOC PROGRESS REPORT ---
Subjective Progress Note for:: 11/26/17 Subjective:: Blood pressure noted to be stable. Have increased carvedilol to 6.25 p.o. every 12. May consider increasing entresto if blood pressure remains well. Patient denies any recent ischemia workup. Patient is interested in pursuing a nuclear stress test while he is here. Patient being scheduled for a stress test. Nuclear stress test procedure was explained to the patient in detail. Risks benefits were discussed and informed consent was obtained. Alternatives were discussed. Patient informed that based on risk factors, physical exam, lab data findings and symptoms there is at least intermediate probability of underlying CAD. Nuclear stress test procedure was therefore scheduled. Patient seems to be doing better with gradual improvement. Pt is denying any chest arm or neck discomfort. Patient denying any PND, orthopnea. Patient denied any sustained palpitations, dizziness, syncope, near syncope. Patient denying any fever chills. Patient denying any other significant discomfort. Patient is maintaining atrial fibrillation with ventricular paced beats Review of systems: Rest review of systems negative. Medications: Medications have been reviewed. Reason For Visit: ACUTE RENAL FAILURE,SUPRATHERAPEUTIC INTERNATIONAL Physical Exam Vital Signs: Temp Pulse Resp BP Pulse Ox 99.2 F 120 H 16 123/80 100 11/26/17 11:06 11/26/17 11:06 11/26/17 11:06 11/26/17 11:06 11/26/17 11:06 Intake & Output 11/25/17 11/26/17 11/27/17 06:59 06:59 06:59 Intake Total 1928 1338 400 Balance 1928 1338 400 Weight 103.1 kg 101.8 kg Exam: GENERAL: well-nourished and in no acute distress. Alert and oriented x3 HEAD: Atraumatic, normocephalic. EYES: Pupils equal round and reactive to light, extraocular movements intact, sclera anicteric, conjunctiva are normal. ENT: TMs normal, nares patent, oropharynx clear without exudates. Moist mucous membranes. No oral ulcerations or bleeding gums noted NECK: supple without lymphadenopathy. Trachea is central. No cervical or axillary lymphadenopathy noted. Carotids are 2+, JVD WNL LUNGS: Respiration seems nonlabored, no significant accessory muscle action noted. Breath sounds clear to auscultation bilaterally and equal noted. No wheezes rales or rhonchi noted. No significant dullness noted on percussion. CHEST: Palpation of the chest wall shows no significant chest wall tenderness. No other significant abnormalities noted. HEART: [place] TISSUE REWINDER, No PSH, 1/6 ROCHELLE aortic area, 1/6 bach systolic murmur mitral area, no rubs, no gallops. ABDOMEN: Soft, no significant tenderness appreciated, normoactive bowel sounds. No guarding, no rebound. No rigidity noted . No masses appreciated. EXTREMITIES: Pedal pulses are 1-2+, no calf tenderness noted. No clubbing or cyanosis.trace to 1+ pedal edema noted NEUROLOGICAL: Focused neurological exam showed no significant neurologic deficit. Normal speech, no focal weakness appreciated. PSYCH: Normal mood, normal affect. Judgment and insight within normal limits. SKIN: No significant ecchymosis, rash, ulcerations or signs of pruritus noted. MUSCULOSKELETAL EXAM: No significant joint swelling noted. Results Laboratory Results: 11/26/17 08:29 11/26/17 08:29 11/26/17 11/26/17 11/26/17 01:26 08:29 08:29 WBC 10.5 RBC 4.10 L Hgb 11.7 L Hct 34.9 L MCV 85 MCH 28.5 MCHC 33.5 RDW 16.9 H Plt Count 244 Sodium 138.5 Potassium 4.0 Chloride 103 Carbon Dioxide 25 Anion Gap 11 BUN 23 H Creatinine 0.92 Est GFR ( Amer) > 60 Est GFR (Non-Af Amer) > 60 Glucose 138 H Calcium 9.4 Urine Color YELLOW Urine Appearance CLEAR Urine pH 6.0 Ur Specific [place] 1.013 Urine Protein NEGATIVE Urine Glucose (UA) NEGATIVE Urine Ketones NEGATIVE Urine Blood NEGATIVE Urine Nitrite NEGATIVE Ur Leukocyte Esterase NEGATIVE Urine WBC (Auto) 1 Stool Occult Blood 11/26/17 11:07 WBC RBC Hgb Hct MCV MCH MCHC RDW Plt Count Sodium Potassium Chloride Carbon Dioxide Anion Gap BUN Creatinine Est GFR ( Amer) Est GFR (Non-Af Amer) Glucose Calcium Urine Color Urine Appearance Urine pH Ur Specific [place] Urine Protein Urine Glucose (UA) Urine Ketones Urine Blood Urine Nitrite Ur Leukocyte Esterase Urine WBC (Auto) Stool Occult Blood NEGATIVE 11/20/17 11/20/17 11/20/17 18:30 18:30 23:25 Creatine Kinase 70 76 CK-MB (CK-2) 1.42 Troponin I 0.064 NT-Pro-B Natriuret Pep 11/20/17 11/21/17 11/21/17 23:25 05:35 05:35 Creatine Kinase 74 CK-MB (CK-2) 1.31 1.33 Troponin I 0.063 0.066 NT-Pro-B Natriuret Pep 11/26/17 08:29 Creatine Kinase CK-MB (CK-2) Troponin I NT-Pro-B Natriuret Pep 99529 H Impressions: Chest X-Ray 11/20/17 10:18 IMPRESSION: NO SIGNIFICANT RADIOGRAPHIC FINDING IN THE CHEST. HARDWARE/SUPPORT DEVICE(S) IN APPROPRIATE AND EXPECTED LOCATION. Assessment & Plan - Diagnosis (1) Hypotension (arterial) Qualifiers: Hypotension type: unspecified hypotension type Qualified Code(s): I95.9 - Hypotension, unspecified Is this a current diagnosis for this admission?: Yes (2) Atrial fibrillation Qualifiers: Atrial fibrillation type: unspecified Qualified Code(s): I48.91 - Unspecified atrial fibrillation Is this a current diagnosis for this admission?: Yes (3) Cardiomyopathy Qualifiers: Cardiomyopathy type: unspecified Qualified Code(s): I42.9 - Cardiomyopathy , unspecified Is this a current diagnosis for this admission?: Yes (4) Coronary artery disease Qualifiers: Coronary Disease-Associated Artery/Lesion type: [place] artery [place] vs. transplanted heart: [place] heart Associated angina: angina presence unspecified Qualified Code(s): I25.10 - Atherosclerotic heart disease of [place] coronary artery without angina pectoris Is this a current diagnosis for this admission?: Yes (5) Sleep disorder Is this a current diagnosis for this admission?: Yes (6) Congestive heart failure Qualifiers: Heart failure type: combined systolic and diastolic Heart failure chronicity: acute on chronic Qualified Code(s): I50.43 - Acute on chronic combined systolic (congestive) and diastolic (congestive) heart failure Is this a current diagnosis for this admission?: Yes (7) Supratherapeutic INR Is this a current diagnosis for this admission?: Yes - Notes Notes: Hypotension: Improved blood pressure now is stable. started entresto yesterday and also carvedilol today. Monitor BP closely. Patient has not received any Midodrin for last several days therefore will be discontinued. Atrial fibrillation: Patient currently on Coumadin. INR is therapeutic. Lovenox discontinued. Cardiomyopathy: Currently on low-dose entresto and carvedilol, May also consider digoxin therapy at low-dose. Coronary artery disease: Symptomatically stable. Continue spironolactone therapy. Patient has primary prevention defibrillator in place. Sleep disorder: Patient will benefit from a sleep evaluation as patient likely to have underlying sleep apnea syndrome. CHF: Currently compensated. However patient's nuclear stress test did show increased lung uptake. Have therefore increased torsemide dose. In fact patient tells me that he was taking torsemide at 40 mg p.o. twice daily. He was asked to resume that dose. Coronary artery disease: Patient status post coronary artery bypass graft surgery. Patient did have a nuclear stress test which showed a large area of predominantly severe fixed defect involving the LV apex. This was discussed with the patient. Discussed that it may be worthwhile to consider viability study if clinically indicated. At this point patient was recommended medical management. Supratherapeutic INR: Patient restarted back on Coumadin. May consider Lovenox bridge or at least DVT prophylaxis Lovenox due to prior history of stroke, CHF etc. - Time Time with patient: Greater than 35 minutes - Nuclear stress test results were discussed in detail. Hospitalization course was reviewed with the patient. Patient advised to follow-up with his own vaccine manager. Discussed that I will be happy to follow him for his sleep apnea problems. Medications reviewed and adjusted accordingly: Yes
== END 2017-11-26 18:42 | disposition home or self-care (01) | DRG 682 ==
LOC: ER 09:55 → EH 16:26 → 3N 11-21 12:47
PROVIDERS: ADMIT Emergency Medicine; ATTEND Emergency Medicine
PROC: 30233K1 Transfusion of Nonautologous Frozen Plasma into Peripheral Vein, Percutaneous Approach (ICD-10-PCS; principal; 2017-11-20)
DX: N17.9 Acute kidney failure, unspecified (principal); I50.43 Acute on chronic combined systolic (congestive) and diastolic (congestive) heart failure; I42.9 Cardiomyopathy, unspecified; I48.91 Unspecified atrial fibrillation; I95.9 Hypotension, unspecified; I50.9 Heart failure, unspecified; I25.10 Atherosclerotic heart disease of native coronary artery without angina pectoris; E87.6 Hypokalemia; I11.0 Hypertensive heart disease with heart failure; E78.00 Pure hypercholesterolemia, unspecified; E11.9 Type 2 diabetes mellitus without complications; M10.9 Gout, unspecified; I25.2 Old myocardial infarction; Z79.84 Long term (current) use of oral hypoglycemic drugs; Z79.01 Long term (current) use of anticoagulants; Z79.899 Other long term (current) drug therapy; Z88.0 Allergy status to penicillin; Z79.1 Long term (current) use of non-steroidal anti-inflammatories (NSAID); Z95.0 Presence of cardiac pacemaker
CPT/HCPCS: 36415; 36430; 71046; 78452; 80048; 80053; 80162; 80307; 81001; 82272; 82550; 82553; 82962; 83735; 83880; 84439; 84443; 84481; 84484; 85025; 85027; 85610; 85730; 86900; 86901; 93005; 93010; 93017; 93306; 94640; 96360; 96372; 99285; A9500; J0280; J1650; J1815; J2785; J3430; J3490; J7030; J7512; J7620; P9017; Q9969; S0119

== ENCOUNTER 2018-12-23 22:58 | Emergency (ER) | payer MEDICARE ==
[2018-12-23] MEDS ORDERED: ONDANSETRON HCL INJ/PF 4 MG/2 ML SDV IV ONE (23:39)
[2018-12-23] MEDS ORDERED: NORMAL SALINE 500 ML IV ONE (23:40)
--- NOTE | 2018-12-23 23:45 | ER Document Report ---
ED General - General Chief Complaint: Chest Pain Stated Complaint: CHEST PAIN Time Seen by Provider: 12/23/18 23:28 Primary Care Provider: DELONTE PARADA FNP-C [COMMUNITY BASED STAFF] - 12/25/18 Notes: Patient is a 58-year-old male that comes to the emergency department for chief complaint of not feeling well for the past 5 days, he states that since last Sunday he has had cough, nausea, abdominal pain, body aches, and generally feels unwell. He has had intermittent pains in his chest but he states this is not new for him (he states that it is occasional mild fleeting discomfort in the center of his chest that he has been having for a while with previous workups but no change). He states he has not had much to eat at all for the past 2 days, whenever he thinks of food he becomes nauseated. He points to his left and lower abdomen for pain. He does report medication compliance. He has a complicated past medical history including afib (coumadin), CABG, pacemaker, CHF with ejection fraction of 25%, diabetes, hypertension, and is on Coumadin. He has not been taking his Coumadin for the past few days because he was told his INR was too high. He is being closely followed for this. TRAVEL OUTSIDE OF THE [place] IN LAST 30 DAYS: No - Related Data Allergies/Adverse Reactions: Penicillins Allergy (Verified 11/01/14 07:32) Past Medical History - General Information source: Patient - Social History Smoking Status: Never Smoker Frequency of alcohol use: None Drug Abuse: None Lives with: Family Family History: Hypertension, Malignancy - Past Medical History Cardiac Medical History: Reports: Hx Congestive Heart Failure, Hx Coronary Artery Disease, Hx Heart Attack, Hx Hypercholesterolemia, Hx Hypertension Neurological Medical History: Denies: Hx Seizures Endocrine Medical History: Reports: Hx Diabetes Mellitus Type 2 Renal/ Medical History: Denies: Hx Peritoneal Dialysis Musculoskeletal Medical History: Reports Hx Gout Psychiatric Medical History: Denies: Hx Depression Past Surgical History: Reports: Hx Cardiac Surgery - bypass, Hx Coronary Artery Bypass Graft, Hx Pacemaker - w/ defib - Immunizations Immunizations up to date: Yes Hx Diphtheria, Pertussis, Tetanus Vaccination: Yes Hx Pneumococcal Vaccination: 05/28/14 Review of Systems - Review of Systems Constitutional: See HPI EENT: No symptoms reported Cardiovascular: See HPI Respiratory: See HPI Gastrointestinal: See HPI Genitourinary: No symptoms reported Male Genitourinary: No symptoms reported Musculoskeletal: No symptoms reported Skin: No symptoms reported Hematologic/Lymphatic: No symptoms reported Neurological/Psychological: No symptoms reported Physical Exam - Vital signs Vitals: Pulse Resp BP Pulse Ox 111 H 18 117/79 99 12/23/18 23:20 12/23/18 23:20 12/23/18 23:20 12/23/18 23:20 - Notes Notes: GENERAL: Alert, interacts well. No acute distress. HEAD: Normocephalic, atraumatic. EYES: Pupils equal, round, and reactive to light. Extraocular movements intact. ENT: Oral mucosa moist, tongue midline. Oropharynx unremarkable. Airway patent. Nares patent, no nasal septal hematoma, TM's intact. NECK: Full range of motion. Supple. Trachea midline. LUNGS: Clear to auscultation bilaterally, no wheezes, rales, or rhonchi. No respiratory distress. HEART: Irregularly irregular, borderline tachycardia. ABDOMEN: Tenderness mildly in the upper abdomen, slightly more so in the lower abdomen generally. No specific areas of guarding, no rigidity or rebound tenderness. GENITOURINARY: Deferred EXTREMITIES: Moves all 4 extremities spontaneously. No edema, normal radial and dorsalis pedis pulses bilaterally. No cyanosis. BACK: no cervical, thoracic, lumbar midline tenderness. No saddle anesthesia, normal distal neurovascular exam. NEUROLOGICAL: Alert and oriented x3. Normal speech. [cranial nerves II through XII grossly intact]. PSYCH: Normal affect, normal mood. SKIN: Warm, dry, normal turgor. No rashes or lesions noted. Course - Re-evaluation Re-evalutation: Patient is well-appearing on exam. He does have some generalized abdominal tenderness but otherwise his examination is unremarkable including clear lungs. He does have atrial fibrillation but he states this is normal for him. He has borderline tachycardia but no hypotension, fever, or signs of distress. CBC unremarkable. Chemistry shows elevated LFTs, bilirubin is elevated but is not significantly changed from prior, troponin is indeterminate without significant change from prior, EKG without significant change from prior (showing afib). Chest x-ray unremarkable. Urinalysis unremarkable. INR is still supratherapeutic but improved from what patient reports he was previously (he states he was at 6). Reevaluated patient, patient states he is still having abdominal pain intermittently. He still has abdominal pain on exam. As result CAT scan was performed, this does show early sigmoid diverticulitis, no other concerning findings. No abscess or perforation. I do suspect patient does have developing diverticulitis based on his reported symptoms. I reevaluated patient again. He states he feels much improved, he states he feels good and he wants to go home. He tolerated drinking fluids without any difficulty, he took pills without any difficulty. He still has borderline tachycardia but has not had any significant change or decompensation during his stay. He states he has very close follow-up already with primary care. He states he will come back if he worsens in any way. As result he was discharged with return precautions. - Vital Signs Vital signs: Temp Pulse Resp BP Pulse Ox 97.8 F 111 H 20 115/86 H 97 12/24/18 04:16 12/23/18 23:20 12/24/18 04:13 12/24/18 04:16 12/24/18 04:13 - Laboratory Result Diagrams: 12/24/18 00:00 12/24/18 00:00 Laboratory results interpreted by me: 12/24/18 12/24/18 12/24/18 00:00 00:00 00:00 RDW 15.8 H PT 37.8 H Sodium 132.9 L Potassium 3.5 L Chloride 93 L Glucose 123 H Total Bilirubin 3.7 H Direct Bilirubin 1.4 H AST 215 H ALT 227 H Urine Urobilinogen 12/24/18 00:25 RDW PT Sodium Potassium Chloride Glucose Total Bilirubin Direct Bilirubin AST ALT Urine Urobilinogen 4.0 H Discharge - Discharge Clinical Impression: Cough, Diverticulitis Abdominal pain Qualifiers: Abdominal location: generalized Qualified Code(s): R10.84 - Generalized abdominal pain Chest pain Qualifiers: Chest pain type: unspecified Qualified Code(s): R07.9 - Chest pain, unspecified Condition: Stable Disposition: HOME, SELF-CARE Additional Instructions: Your workup does show diverticulitis. Your liver enzymes are elevated, this is nonspecific, this needs to be rechecked. Your INR is improving, please follow- up closely for recheck of this and reevaluation. Continue clear fluids for the next 1-2 days, resume bland and then normal food as tolerated. Return if you worsen in any way including difficulty breathing, worsening pain, fever, bloody bowel movements, vomiting, or any other concerning or worsening symptoms. Prescriptions: Morphine Sulfate [Morphine Ir 15 Mg Tablet] 15 mg PO Q4HP PRN #10 tablet PRN Reason: Ciprofloxacin HCl [Cipro 500 mg Tablet] 500 mg PO BID #14 tablet Metronidazole [Flagyl 500 mg Tablet] 500 mg PO TID #21 tablet Ondansetron [Zofran Odt 4 mg Tablet] 1 - 2 tab PO Q4H PRN #15 tab.rapdis PRN Reason: For Nausea/Vomiting Referrals: DELONTE PARADA, PHOTOENGRAVING PROOFER-C [COMMUNITY BASED STAFF] - 12/25/18
--- NOTE | 2018-12-24 00:08 | EKG REPORT ---
SEVERITY:- ABNORMAL ECG - AFIB/FLUT AND V-PACED COMPLEXES NONSPECIFIC INTRAVENTRICULAR CONDUCTION DELAY MINIMAL ST DEPRESSION, DIFFUSE LEADS : Confirmed by: Barry Barrow 24-Dec-2018 00:07:09
[2018-12-24 00:20] LABS: ABSOLUTE BASOPHILS # (AUTO) 0.1 10^3/uL (0.0-0.2); ABSOLUTE EOSINOPHILS # (AUTO) 0.1 10^3/uL (0.0-0.6); ABSOLUTE MONOCYTES (AUTO) 0.8 10^3/uL (0.1-1.4); ABSOLUTE NEUT (AUTO) 6.8 10^3/uL (1.7-8.2); BASOPHILS % (AUTO) 0.9 % (0-2); EOSINOPHILS % (AUTO) 0.7 % (0-6); HEMATOCRIT 43.9 % (37.9-51.0); HEMOGLOBIN 14.9 g/dL (13.5-17.0); LYMPHOCYTES % (AUTO) 20.7 % (13-45); MEAN CORPUSCULAR HEMOGLOBIN 30.7 pg (27.0-33.4); MEAN CORPUSCULAR HGB CONC 33.9 g/dL (32.0-36.0); MEAN CORPUSCULAR VOLUME 91 fl (80-97); MONOCYTES % (AUTO) 8.5 % (3-13); PLATELET COUNT 309 10^3/uL (150-450); RED BLOOD COUNT 4.85 10^6/uL (4.35-5.55); RED CELL DISTRIBUTION WIDTH 15.8 % (11.5-14.0); SEGMENTED NEUTROPHILS % (AUTO) 69.2 % (42-78); TOTAL CELLS COUNTED % (AUTO) 100 %; WHITE BLOOD COUNT 9.9 10^3/uL (4.0-10.5)
[2018-12-24 00:27] LABS: INTERNATIONAL RATION (INR) 3.63; PROTHROMBIN TIME 37.8 SEC (11.4-15.4)
[2018-12-24 00:33] LABS: ALANINE AMINOTRANSFERASE 227 U/L (21-72); ALBUMIN 4.6 g/dL (3.5-5.0); ALKALINE PHOSPHATASE 93 U/L (38-126); ANION GAP 15 (5-19); ASPARTATE AMINO TRANSFERASE 215 U/L (17-59); BILIRUBIN,DIRECT 1.4 mg/dL (0.0-0.4); BILIRUBIN,TOTAL 3.7 mg/dL (0.2-1.3); BLOOD UREA NITROGEN 20 mg/dL (7-20); CALCIUM 9.9 mg/dL (8.4-10.2); CARBON DIOXIDE 25 mmol/L (22-30); CHLORIDE 93 mmol/L (98-107); GLUCOSE 123 mg/dL (75-110); LIPASE 263.7 U/L (23-300); POTASSIUM 3.5 mmol/L (3.6-5.0); SODIUM 132.9 mmol/L (137-145); TOTAL PROTEIN 7.3 g/dL (6.3-8.2)
[2018-12-24 00:37] LABS: APPEARANCE,URINE CLEAR; BILIRUBIN,URINE NEGATIVE (NEGATIVE); COLOR,URINE AMBER; GLUCOSE, URINE NEGATIVE (NEGATIVE); KETONES,URINE NEGATIVE (NEGATIVE); LEUKOCYTE ESTERASE,URINE NEGATIVE (NEGATIVE); NITRITE,URINE NEGATIVE (NEGATIVE); PROTEIN,URINE NEGATIVE (NEGATIVE); URINE SPECIFIC GRAVITY 1.014
--- NOTE | 2018-12-24 01:33 | RADIOLOGY REPORT (SQ) ---
EXAM DESCRIPTION: XR CHEST 1 VIEW COMPLETED DATE/TME: 12/23/2018 23:39 CLINICAL HISTORY: 58 years, Male, productive cough COMPARISON: 11/20/2017 chest NUMBER OF VIEWS: 1 TECHNIQUE: Portable chest LIMITATIONS: None. FINDINGS: Cardiomegaly. Median sternotomy wires. Left-sided pacing device. Mediastinal clips. Osteopenia. Tiny left pleural effusion. No pneumothorax IMPRESSION: Cardiomegaly with postsurgical change. Tiny left pleural effusion copyright 2010 [employer]- All Rights Reserved
[2018-12-24] MEDS ORDERED: MORPHINE SULFATE 10 MG/ML INJ IV ONE (02:22)
--- NOTE | 2018-12-24 03:50 | RADIOLOGY REPORT (SQ) ---
EXAM DESCRIPTION: CT ABDOMEN PELVIS WITH IV CONTRAST COMPLETED DATE/TME: 12/24/2018 02:22 CLINICAL HISTORY: 58 years, Male, mid to lower abd pain, nausea, elevated LFTs, CREAT 1.20 Comparison: None TECHNIQUE: Contiguous axial CT images of the abdomen and pelvis were obtained. Sagittal and coronal reformats were reviewed. This exam was performed according to our departmental dose-optimization program, which includes automated exposure control, adjustment of the mA and/or kV according to patient size and/or use of iterative reconstruction technique. FINDINGS: Lung bases: Lung bases are clear. Mild cardiomegaly. Reflux of contrast into the IVC and hepatic veins suggestive of cardiac dysfunction. No pericardial effusion. Liver:Unremarkable. No focal liver lesion. Gallbladder:Unremarkable. No gallstones. No gallbladder wall thickening or pericholecystic fluid. Spleen:Unremarkable Pancreas: Pancreas is unremarkable. Adrenal glands:Within normal limits. Kidneys/ureters:Within normal limits Stomach/small bowel/colon: Stomach is unremarkable. Small bowel is unremarkable. Scattered colonic diverticula. There is a single diverticulum in the mid sigmoid colon with very subtle adjacent inflammatory stranding (image 70 series 3). No free air. No defined fluid collections. Appendix: No evidence of appendicitis. Peritoneum: No free fluid. Vascular structures: within normal limits Lymph nodes: No abnormal lymph nodes. Bladder:Unremarkable. Pelvic organs: No acute abnormality Bones: No acute osseous abnormality. Soft tissues: Unremarkable.. IMPRESSION: Questionable early sigmoid diverticulitis. Cardiomegaly.
[2018-12-24] MEDS ORDERED: METRONIDAZOLE 500 MG TABLET PO ONE (03:59)
[2018-12-24] MEDS ORDERED: CIPROFLOXACIN HCL 500 MG TABLET PO ONE (03:59)
[2018-12-24 04:17] VITALS: BP 115/86
== END 2018-12-24 04:17 | disposition home or self-care (01) ==
LOC: ER 22:58
DX: K57.92 Diverticulitis of intestine, part unspecified, without perforation or abscess without bleeding (principal); R07.9 Chest pain, unspecified; R10.84 Generalized abdominal pain; R05 Cough; R11.0 Nausea; I48.91 Unspecified atrial fibrillation; E11.9 Type 2 diabetes mellitus without complications; I50.9 Heart failure, unspecified; E78.00 Pure hypercholesterolemia, unspecified; I11.0 Hypertensive heart disease with heart failure; Z79.02 Long term (current) use of antithrombotics/antiplatelets; Z95.1 Presence of aortocoronary bypass graft; Z88.0 Allergy status to penicillin; Z95.810 Presence of automatic (implantable) cardiac defibrillator; I25.2 Old myocardial infarction
CPT/HCPCS: 93005; 99285; 96374; 96375; 36415; 83690; 85025; 85610; 80053; 81001; 84484; 71045; 74177; 93010; A9270 ×2; J2270; J2405; J7040

== ENCOUNTER 2019-05-24 14:21 | Emergency (ER) | payer MEDICARE ==
[2019-05-24 14:30] VITALS: BP 148/81
--- NOTE | 2019-05-24 14:58 | ER Document Report ---
HPI - HPI Time Seen by Provider: 05/24/19 14:32 Pain Level: 1 Notes: Patient is a 58-year-old male with chief complaint of injury to his left lower extremity. Patient reports he has a varicose vein on his left anterior pineda. He states he hit it with something today and it was bleeding. Reports similar incident 2 months ago. - REPRODUCTIVE Reproductive: DENIES: : - DERM Skin Color: Normal, [place] Past Medical History - General Information source: Patient - Social History Smoking Status: Former Smoker Frequency of alcohol use: Occasional Drug Abuse: None Family History: Hypertension, Malignancy Patient has suicidal ideation: No Patient has homicidal ideation: No - Past Medical History Cardiac Medical History: Reports: Hx Atrial Fibrillation, Hx Congestive Heart Failure, Hx Coronary Artery Disease, Hx Heart Attack, Hx Hypercholesterolemia, Hx Hypertension Neurological Medical History: Denies: Hx Seizures Endocrine Medical History: Reports: Hx Diabetes Mellitus Type 2 Renal/ Medical History: Denies: Hx Peritoneal Dialysis Musculoskeletal Medical History: Reports Hx Gout Psychiatric Medical History: Denies: Hx Depression Past Surgical History: Reports: Hx Cardiac Surgery - bypass/ppm/aicd/ablation, Hx Coronary Artery Bypass Graft, Hx Pacemaker - w/ defib - Immunizations Immunizations up to date: Yes Hx Diphtheria, Pertussis, Tetanus Vaccination: Yes Hx Pneumococcal Vaccination: 05/28/14 Vertical Provider Document - CONSTITUTIONAL Notes: PHYSICAL EXAMINATION: GENERAL: Well-appearing, well-nourished and in no acute distress. HEAD: Atraumatic, normocephalic. EYES: Pupils equal round extraocular movements intact, conjunctiva are normal. ENT: Nares patent NECK: Normal range of motion LUNGS: No respiratory distress Musculoskeletal: Normal range of motion NEUROLOGICAL: Normal speech, normal gait. PSYCH: Normal mood, normal affect. SKIN: Puncture wound noted to left anterior pineda, no active bleeding noted. - INFECTION CONTROL TRAVEL OUTSIDE OF THE [place] IN LAST 30 DAYS: No Course - Re-evaluation Re-evalutation: Bleeding has stopped prior to arrival to the emergency department, puncture wound is noted, Tdap up-to-date, will send patient home with Surgifoam dressing and have him follow-up with Dr. Joey Parada or Dr. Parrish. Patient given ED return precautions, patient verbalizes understanding and agreement with same. The patient's emergency department workup and current diagnosis were explained to the patient and or family. Follow-up instructions were provided. Medications if prescribed were discussed. Instructions for when to return to the emergency department including specific worrisome symptoms were discussed with the patient and/or family. - Vital Signs Vital signs: Temp Pulse Resp BP Pulse Ox 97.6 F 90 16 148/81 H 98 05/24/19 14:29 05/24/19 14:29 05/24/19 14:29 05/24/19 14:29 05/24/19 14:29 Discharge - Discharge Clinical Impression: Varicose vein of leg Qualifiers: Varicose vein complication: unspecified Laterality: unspecified laterality Qualified Code(s): I83.90 - Asymptomatic varicose veins of unspecified lower extremity Condition: Stable Disposition: HOME, SELF-CARE Additional Instructions: If the vein starts bleeding again please apply the Surgifoam to the area and keep it in place for at least [address] Parada or Dr. Parrish for follow-up. Return to the emergency department for any new or worsening symptoms Referrals: TETO PARADA MD [ACTIVE STAFF] - Follow up as needed MARGIE PARRISH MD [ACTIVE STAFF] - Follow up as needed
== END 2019-05-24 15:00 | disposition home or self-care (01) ==
LOC: ER 14:21
DX: I83.92 Asymptomatic varicose veins of left lower extremity (principal); S81.832A Puncture wound without foreign body, left lower leg, initial encounter; X58.XXXA Exposure to other specified factors, initial encounter; I25.10 Atherosclerotic heart disease of native coronary artery without angina pectoris; I10 Essential (primary) hypertension; I25.2 Old myocardial infarction; E11.9 Type 2 diabetes mellitus without complications; Z87.891 Personal history of nicotine dependence; Z95.1 Presence of aortocoronary bypass graft; Z95.810 Presence of automatic (implantable) cardiac defibrillator
CPT/HCPCS: 99283

== ENCOUNTER 2019-05-24 18:05 | Emergency (ER) | payer MEDICARE ==
[2019-05-24 18:11] VITALS: BP 126/79
--- NOTE | 2019-05-24 19:12 | ER Document Report ---
HPI - HPI Time Seen by Provider: 05/24/19 18:23 Pain Level: 0 Notes: Patient is a 58-year-old male with chief complaint of injury to his left lower extremity. Patient reports he has a varicose vein on his left anterior pineda. He was seen here earlier for the same reason and returns as it started bleeding shortly after he left the ER. - REPRODUCTIVE Reproductive: DENIES: : - DERM Skin Color: Normal, Amaya Past Medical History - General Information source: Patient - Social History Smoking Status: Former Smoker Frequency of alcohol use: None Drug Abuse: None Family History: Hypertension, Malignancy Patient has suicidal ideation: No Patient has homicidal ideation: No - Past Medical History Cardiac Medical History: Reports: Hx Atrial Fibrillation, Hx Congestive Heart Failure, Hx Coronary Artery Disease, Hx Heart Attack, Hx Hypercholesterolemia, Hx Hypertension Neurological Medical History: Denies: Hx Seizures Endocrine Medical History: Reports: Hx Diabetes Mellitus Type 2 Renal/ Medical History: Denies: Hx Peritoneal Dialysis Musculoskeletal Medical History: Reports Hx Gout Psychiatric Medical History: Denies: Hx Depression Past Surgical History: Reports: Hx Cardiac Surgery - bypass/ppm/aicd/ablation, Hx Coronary Artery Bypass Graft, Hx Pacemaker - w/ defib - Immunizations Immunizations up to date: Yes Hx Diphtheria, Pertussis, Tetanus Vaccination: Yes Hx Pneumococcal Vaccination: 05/28/14 Vertical Provider Document - CONSTITUTIONAL Notes: PHYSICAL EXAMINATION: GENERAL: Well-appearing, well-nourished and in no acute distress. HEAD: Atraumatic, normocephalic. EYES: Pupils equal round extraocular movements intact, conjunctiva are normal. ENT: Nares patent NECK: Normal range of motion LUNGS: No respiratory distress Musculoskeletal: Normal range of motion NEUROLOGICAL: Normal speech, normal gait. PSYCH: Normal mood, normal affect. SKIN: Puncture wound noted to left anterior pineda, no active bleeding noted. - INFECTION CONTROL TRAVEL OUTSIDE OF THE [place] IN LAST 30 DAYS: No Course - Re-evaluation Re-evalutation: Dr. Estes came to see the patient, he change the patient's dressing and will have him follow-up with vascular surgery. Patient verbalizes understanding and agreement with this plan. The patient's emergency department workup and current diagnosis were explained to the patient and or family. Follow-up instructions were provided. Medications if prescribed were discussed. Instructions for when to return to the emergency department including specific worrisome symptoms were discussed with the patient and/or family. - Vital Signs Vital signs: Temp Pulse Resp BP Pulse Ox 98.0 F 84 18 126/79 H 100 05/24/19 18:10 05/24/19 18:10 05/24/19 18:10 05/24/19 18:10 05/24/19 18:10 Discharge - Discharge Clinical Impression: Bleeding from varicose vein Condition: Stable Disposition: HOME, SELF-CARE Additional Instructions: Dr. Estes want to to keep the dressing in place for at least in the next [address] Parada office for follow-up. His phone number is below. Return to the emergency department for any new or worsening concerns. Referrals: TETO PARADA MD [ACTIVE STAFF] - Follow up as needed
--- NOTE | 2019-05-24 19:32 | PDOC CONSULTATION ---
Consultation Consult Date: 05/24/19 Provider Consulted: KATIE CASTELLANOS Consult reason:: bleeding varicose vein History of Present Illness History of Present Illness: SJ REYES is a 58 year old male with known varicose vein who was seen initially yesterday for bleeding varicose vein from the left lower leg. A piece of gelfoam was placed which stopped the bleeding. Patient on Eliquiz for A Fib and 20% cardiac ejection fraction. This area rebled at home and patient placed another piece of gelfoam and went back to ED. I was asked to evaluate the wound/varicose vein. Past Medical History Cardiac Medical History: Reports: Atrial Fibrillation, Congestive Heart Failure, Coronary Artery Disease, Myocardial Infarction, Hyperlipidema, Hypertension Neurological Medical History: Denies: Seizures Endocrine Medical History: Reports: Diabetes Mellitus Type 2 Musculoskeltal Medical History: Reports: Gout Psychiatric Medical History: Denies: Depression Past Surgical History Past Surgical History: Reports: Coronary Artery Bypass Graft, Pacemaker - w/ defib Social History Smoking Status: Former Smoker Frequency of Alcohol Use: Occasional Hx Recreational Drug Use: No Drugs: None Hx Prescription Drug Abuse: No Family History Family History: Hypertension, Malignancy Parental Family History Reviewed: Yes Children Family History Reviewed: No Sibling(s) Family History Reviewed.: No Medication/Allergy Home Medications: Allopurinol [Zyloprim 300 mg Tablet] 300 mg PO QAM 11/20/17 Atorvastatin Calcium [Lipitor 80 mg Tablet] 80 mg PO QHS 11/20/17 Digoxin [Lanoxin 0.125 mg Tablet] 0.125 mg PO BID 11/20/17 Ergocalciferol (Vitamin D2) [Drisdol 50,000 unit (1.25MG) Capsule] 50,000 units PO SA 11/20/17 Famotidine [Pepcid 20 mg Tablet] 20 mg PO DAILY 11/20/17 Glipizide [Glucotrol Xl 5 mg Tab.er] 5 mg PO DAILY 11/20/17 Methimazole [Tapazole 5 mg Tablet] 10 mg PO DAILY 11/20/17 Metoprolol Succinate [Toprol XL 100 mg Tablet] 100 mg PO QAM 11/20/17 Metoprolol Succinate [Toprol Xl 50 mg Tab.sr] 50 mg PO QPM 11/20/17 Multivitamin [Daily Multiple Vitamin] 1 tab PO DAILY 11/20/17 Ranitidine HCl [Zantac 150 mg Tablet] 150 mg PO BID 11/20/17 Sacubitril/Valsartan [Entresto 97 mg-103 mg Tablet] 1 tab PO DAILY 11/20/17 Temazepam [Restoril 15 mg Capsule] 15 mg PO QHS 11/20/17 Aspirin [Adult Aspirin Regimen] 81 mg PO DAILY #30 tablet. 11/26/17 Guaifenesin/Codeine Phos [Robitussin-AC Liquid 5 ml Udcup] 5 ml PO Q6HP PRN udc 11/26/17 Levofloxacin [Levaquin 750 mg Tablet] 750 mg PO DAILY #2 tablet 11/26/17 Prednisone [Deltasone 20 mg Tablet] 20 mg PO Q12 #10 tablet 11/26/17 Spironolactone [Aldactone 25 mg Tablet] 25 mg PO DAILY #30 tablet 11/26/17 Torsemide [Demadex 20 mg Tablet] 20 mg PO BID #0 11/26/17 Warfarin Sodium 4 mg PO QHS #30 tablet 11/26/17 Ciprofloxacin HCl [Cipro 500 mg Tablet] 500 mg PO BID #14 tablet 12/24/18 Metronidazole [Flagyl 500 mg Tablet] 500 mg PO TID #21 tablet 12/24/18 Morphine Sulfate [Morphine Ir 15 Mg Tablet] 15 mg PO Q4HP PRN #10 tablet 12/24/18 Ondansetron [Zofran Odt 4 mg Tablet] 1 - 2 tab PO Q4H PRN #15 tab.rapdis 12/24/18 Allergies/Adverse Reactions: Penicillins Allergy (Verified 05/24/19 18:06) trazodone Allergy (Verified 05/24/19 18:06) zolpidem [From Ambien] Allergy (Verified 05/24/19 18:06) Review of Systems Constitutional: PRESENT: as per HPI Physical Exam Vital Signs: Temp Pulse Resp BP Pulse Ox 98.0 F 84 18 126/79 H 100 05/24/19 18:10 05/24/19 18:10 05/24/19 18:10 05/24/19 18:10 05/24/19 18:10 Intake & Output 05/23/19 05/24/19 05/25/19 06:59 06:59 06:59 Weight 83.6 kg General appearance: PRESENT: no acute distress Head exam: PRESENT: atraumatic Eye exam: PRESENT: conjunctiva pink Mouth exam: PRESENT: moist Neck exam: PRESENT: full ROM Respiratory exam: PRESENT: clear to auscultation isr[place] Cardiovascular exam: PRESENT: irregular rhythm Pulses: PRESENT: normal dorsalis pedis pul Vascular exam: PRESENT: normal capillary refill, other - varicose veins in both lower legs Gelfoam removed and no active bleeding noted GI/Abdominal exam: PRESENT: soft Rectal exam: PRESENT: deferred Extremities exam: PRESENT: other - varicose veins both lower legs. Gelfoam removed and no active bleeding noted Neurological exam: PRESENT: alert, oriented to person, oriented to place, oriented to time, oriented to situation Psychiatric exam: PRESENT: appropriate affect Skin exam: PRESENT: normal color, warm Assessment & Plan - Diagnosis (1) Bleeding from varicose vein Is this a current diagnosis for this admission?: Yes (2) Atrial fibrillation Qualifiers: Atrial fibrillation type: unspecified Qualified Code(s): I48.91 - Unspecified atrial fibrillation Is this a current diagnosis for this admission?: Yes (3) Cardiomyopathy Qualifiers: Cardiomyopathy type: unspecified Qualified Code(s): I42.9 - Cardiomyopathy, unspecified Is this a current diagnosis for this admission?: Yes - Time Time Spent: 30 to 50 Minutes - Plan Summary Plan Summary: Left lower leg wound/varicose vein prepped with betadine and a piece of gelfoam placed over the varicose vein that bled. Left lower leg wrapped over 4x4 with Jake bandage. Patient advised to elevate leg when at home and or sleeping and keep Jake bandage for 36-48 hrs. Advised to see a vascular surgeon(Dr Paige) Sunday or Sunday this week. May benefit from sclerotherapy.
== END 2019-05-24 19:15 | disposition home or self-care (01) ==
LOC: ER 18:05
DX: S81.832A Puncture wound without foreign body, left lower leg, initial encounter (principal); X58.XXXA Exposure to other specified factors, initial encounter; I83.93 Asymptomatic varicose veins of bilateral lower extremities; I48.91 Unspecified atrial fibrillation; Z79.02 Long term (current) use of antithrombotics/antiplatelets; I11.0 Hypertensive heart disease with heart failure; I50.9 Heart failure, unspecified; I25.10 Atherosclerotic heart disease of native coronary artery without angina pectoris; E11.9 Type 2 diabetes mellitus without complications; E78.00 Pure hypercholesterolemia, unspecified; Z95.1 Presence of aortocoronary bypass graft; Z95.810 Presence of automatic (implantable) cardiac defibrillator; Z79.82 Long term (current) use of aspirin; Z79.899 Other long term (current) drug therapy; Z79.84 Long term (current) use of oral hypoglycemic drugs; Z87.891 Personal history of nicotine dependence
CPT/HCPCS: 99283

== ENCOUNTER 2019-06-02 23:46 | Emergency (ER) | payer MEDICARE ==
--- NOTE | 2019-06-03 04:35 | ER Document Report ---
HPI - HPI Patient complains to provider of: bleeding left varicose vein Time Seen by Provider: 06/03/19 03:14 Pain Level: 2 Context: 58 Yr old male pt, with the listed pmh, here for concern related to varicose vein for the last 5 hours. States is been slightly used denies any pulsatile flow. History of this before. He states he actually bumped it on exam 2 months ago. Was seen here about a week ago and that they put some clotting foam and a wrap on it and symptoms have been fine until tonight when he noticed some bruising on his leg so he came in for evaluation. He does have a follow-up appointment with Dr. Paige, vascular surgery June 16 to have his varicose veins addressed. He is on Eliquis. Denies any other blood thinners. He is able to walk. No other fall or trauma. no numbness,weakness or tingling. no surgeries on this extremity. otc meds helping some. hasn't sought care until now. no pain anywhere else. pt able to walk. denies intoxication. pain worse with movement and palpation. better with rest. no other fall or trauma or associated sx - ROS Systems Reviewed and Negative: Yes All other systems reviewed and negative - To include 10 systems, unless mentioned in the hpi. - CONSTITUTIONAL Constitutional: DENIES: Fever, Chills - EENT EENT: DENIES: Sore Throat, Ear Pain, Eye problems - NEURO Neurology: DENIES: Headache, Weakness, Vision blurred, Dizzinesss / Vertigo - CARDIOVASCULAR Cardiovascular: DENIES: Chest pain - RESPIRATORY Respiratory: DENIES: Trouble Breathing, Coughing - GASTROINTESTINAL Gastrointestinal: DENIES: Abdominal Pain, Black / Bloody Stools - URINARY Urinary: DENIES: Dysuria, Urgency, Frequency - REPRODUCTIVE Reproductive: DENIES: : - MUSCULOSKELETAL Musculoskeletal: DENIES: Extremity pain Past Medical History - Social History Smoking Status: Unknown if Ever Smoked Family History: Hypertension, Malignancy Patient has suicidal ideation: No Patient has homicidal ideation: No - Past Medical History Cardiac Medical History: Reports: Hx Atrial Fibrillation, Hx Congestive Heart Failure, Hx Coronary Artery Disease, Hx Heart Attack, Hx Hypercholesterolemia, Hx Hypertension Neurological Medical History: Denies: Hx Seizures Endocrine Medical History: Reports: Hx Diabetes Mellitus Type 2 Renal/ Medical History: Denies: Hx Peritoneal Dialysis Musculoskeletal Medical History: Reports Hx Gout Psychiatric Medical History: Denies: Hx Depression Past Surgical History: Reports: Hx Cardiac Surgery - bypass/ppm/aicd/ablation, Hx Coronary Artery Bypass Graft, Hx Pacemaker - w/ defib - Immunizations Immunizations up to date: Yes Hx Diphtheria, Pertussis, Tetanus Vaccination: Yes Hx Pneumococcal Vaccination: 05/28/14 Vertical Provider Document - CONSTITUTIONAL Notes: GENERAL_APPEARANCE: alert and oriented x 3, mood and affect wnl, cooperative, mild obvious discomfort. Pleasant, smiling, speaking in full sentences, in no sign of pain or resp distress, easily sitting up VITALS: reviewed, see vital signs table. HEAD: no_swelling\tenderness on the head, normocephalic, atraumatic NECK: supple, no_neck_tenderness. full rom and full strength. no sign of central cord syndrome, meningitis, or spinal cord involvement HEART: RRR LUNGS: CTAB, good air exchange diffusely BACK: no_back_tenderness EXTREMITIES: good pulse in all extremities, affected_area_on_extremity has mild erythema, mild swelling, mild tenderness and no_abrasions\lacerations other than as noted. There is a now occluded previous bleeding varicose vein on the midshaft left anterior pineda. There is again no active bleeding. There is minimally tender to palpate. The small area from where the varicose plane like it was bleeding from was dressed with Surgifoam, nonstick dressing, and pressure Jake wrap. No further return of bleeding. Full rom and full strength. Normal gait. good hand treasurer. brisk cap refill. no other shortening or rotation of the limb or obvious deformities to suggest trauma unless otherwise noted. no other swelling or ttp. SKIN: warm, dry, good_color. no rash. no other grossly visible overlying skin changes to suggest trauma NEURO: cerebellar function intact, motor_intact and sensory_intact in injured_extremity. cranial nerves 2-12 intact - INFECTION CONTROL TRAVEL OUTSIDE OF THE [place] IN LAST 30 DAYS: No Course - Re-evaluation Re-evalutation: 06/03/19 04:39 Pt here for now resolving bleeding varicose vein for the last 3 hours. Denies any acute blood loss symptoms he is on Eliquis. The bleeder was dressed with Surgifoam, nonstick, and Jake wrap pressure dressing with no return of bleeding. Patient advised to keep this on for the next 24 hours and follow-up with vascular surgery. Advised to call for sooner appointment.. advised to f/u with pcp/vascular surgery in 1-2 days. return for any worsening symptoms. vss. well appearing. satting well on ra. neurononfocal. pt understands and agrees to plan. On reexam, pt improved with tx listed. remained stable. nontoxic. well appearing. pain controlled. tolerating po. requesting to go home. Documentation achieved through voice recording which may lead to some occasional accidental typographical errors. Extensive efforts have been made to proof read documentation to make sure these are the least as possible. Category Date Time Status Doctor's Order (ED) NOW Care 06/03/19 04:03 Ordered - Vital Signs Vital signs: Temp Pulse Resp BP Pulse Ox 97.5 F 86 16 108/68 100 06/02/19 23:56 06/02/19 23:56 06/02/19 23:56 06/02/19 23:56 06/02/19 23:56 06/03/19 04:40 Temp Pulse Resp BP Pulse Ox 06/02/19 23:56 97.5 F 86 16 108/68 100 Discharge - Discharge Clinical Impression: Bleeding from varicose vein Condition: Good Disposition: HOME, SELF-CARE Instructions: Varicose Veins ([facility]) Additional Instructions: Follow-up with PCP/vascular surgeon in 1 to 2 days. Return for any worsening symptoms. keep the dressing on for the next 24 hours.
[2019-06-03 05:09] VITALS: BP 107/70
== END 2019-06-03 05:10 | disposition home or self-care (01) ==
LOC: ER 23:46
DX: I83.892 Varicose veins of left lower extremity with other complications (principal)

== ENCOUNTER 2019-06-18 09:29 | Emergency (ER) | payer MEDICARE ==
--- NOTE | 2019-06-18 10:11 | ER Document Report ---
ED Medical Screen (RME) - General Chief Complaint: Wrist Injury Stated Complaint: FALL/WRIST INJURY Time Seen by Provider: 06/18/19 10:02 Primary Care Provider: TIGRE REDD MD [Primary Care Provider] - Follow up as needed Mode of Arrival: Ambulatory Information source: Patient Notes: Patient presents stating that around 3:00 this morning he got up and was walking from the bathroom in the hallway and states that the next thing he knew he woke up on the floor. Patient states that he has right shoulder and right wrist pain. Patient denies any headache chest pain shortness of breath nausea or vomiting. Patient does take Eliquis for A. fib. Patient denies any history of frequent falls. I have greeted and performed a rapid initial assessment of this patient. A comprehensive ED assessment and evaluation of the patient, analysis of test results and completion of the medical decision making process will be conducted by additional ED providers. TRAVEL OUTSIDE OF THE [place] IN LAST 30 DAYS: No - Related Data Allergies/Adverse Reactions: Penicillins Allergy (Verified 06/18/19 09:30) trazodone Allergy (Verified 06/18/19 09:30) zolpidem [From Ambien] Allergy (Verified 06/18/19 09:30) Past Medical History - Past Medical History Cardiac Medical History: Reports: Hx Atrial Fibrillation, Hx Congestive Heart Failure, Hx Coronary Artery Disease, Hx Heart Attack, Hx Hypercholesterolemia, Hx Hypertension Neurological Medical History: Denies: Hx Seizures Endocrine Medical History: Reports: Hx Diabetes Mellitus Type 2 Renal/ Medical History: Denies: Hx Peritoneal Dialysis Musculoskeltal Medical History: Reports Hx Gout Psychiatric Medical History: Denies: Hx Depression Past Surgical History: Reports: Hx Cardiac Surgery - bypass/ppm/aicd/ablation, Hx Coronary Artery Bypass Graft, Hx Pacemaker - w/ defib - Immunizations Immunizations up to date: Yes Hx Diphtheria, Pertussis, Tetanus Vaccination: Yes History of Influenza Vaccine for 07/2017 - 12/2017 Season: Yes Physical Exam - Vital signs Vitals: Pulse Resp BP Pulse Ox 94 18 106/61 100 06/18/19 09:34 06/18/19 09:34 06/18/19 09:34 06/18/19 09:34 - General Notes: Tenderness to right shoulder and right wrist, wrist with 2+ edema, 2+ radial pulse Course - Vital Signs Vital signs: Temp Pulse Resp BP Pulse Ox 94 18 106/61 100 06/18/19 09:34 06/18/19 09:34 06/18/19 09:34 06/18/19 09:34 Doctor's Discharge - Discharge Referrals: TIGRE REDD MD [Primary Care Provider] - Follow up as needed
[2019-06-18 10:28] LABS: ABSOLUTE BASOPHILS # (AUTO) 0.1 10^3/uL (0.0-0.2); ABSOLUTE EOSINOPHILS # (AUTO) 0.1 10^3/uL (0.0-0.6); ABSOLUTE LYMPHOCYTES (AUTO) 0.5 10^3/uL (0.5-4.7); ABSOLUTE MONOCYTES (AUTO) 0.6 10^3/uL (0.1-1.4); ABSOLUTE NEUT (AUTO) 5.5 10^3/uL (1.7-8.2); BASOPHILS % (AUTO) 0.9 % (0-2); EOSINOPHILS % (AUTO) 2.2 % (0-6); HEMATOCRIT 34.1 % (37.9-51.0); HEMOGLOBIN 11.2 g/dL (13.5-17.0); LYMPHOCYTES % (AUTO) 6.9 % (13-45); MEAN CORPUSCULAR HEMOGLOBIN 27.8 pg (27.0-33.4); MEAN CORPUSCULAR HGB CONC 32.9 g/dL (32.0-36.0); MEAN CORPUSCULAR VOLUME 84 fl (80-97); MONOCYTES % (AUTO) 8.8 % (3-13); PLATELET COUNT 136 10^3/uL (150-450); RED BLOOD COUNT 4.04 10^6/uL (4.35-5.55); RED CELL DISTRIBUTION WIDTH 17.9 % (11.5-14.0); SEGMENTED NEUTROPHILS % (AUTO) 81.2 % (42-78); TOTAL CELLS COUNTED % (AUTO) 100 %; WHITE BLOOD COUNT 6.8 10^3/uL (4.0-10.5)
[2019-06-18 10:49] LABS: ALBUMIN 3.8 g/dL (3.5-5.0); ALKALINE PHOSPHATASE 115 U/L (38-126); ANION GAP 10 (5-19); ASPARTATE AMINO TRANSFERASE 35 U/L (17-59); BILIRUBIN,DIRECT 0.6 mg/dL (0.0-0.4); BILIRUBIN,TOTAL 1.1 mg/dL (0.2-1.3); BLOOD UREA NITROGEN 19 mg/dL (7-20); CALCIUM 9.7 mg/dL (8.4-10.2); CARBON DIOXIDE 31 mmol/L (22-30); CHLORIDE 85 mmol/L (98-107); GLUCOSE 98 mg/dL (75-110)
[2019-06-18 10:52] LABS: POTASSIUM 2.9 mmol/L (3.6-5.0)
[2019-06-18] MEDS ORDERED: POTASSIUM CHLORIDE 10 MEQ CAPSULE.ER PO ONE (10:58)
[2019-06-18 11:05] LABS: APPEARANCE,URINE SLIGHTLY-CLOUDY; BILIRUBIN,URINE NEGATIVE (NEGATIVE); COLOR,URINE YELLOW; GLUCOSE, URINE NEGATIVE (NEGATIVE); KETONES,URINE NEGATIVE (NEGATIVE); LEUKOCYTE ESTERASE,URINE TRACE (NEGATIVE); NITRITE,URINE NEGATIVE (NEGATIVE); PROTEIN,URINE NEGATIVE (NEGATIVE); URINE SPECIFIC GRAVITY 1.008; UROBILINOGEN,URINE NEGATIVE mg/dL (<2.0)
--- NOTE | 2019-06-18 11:40 | RADIOLOGY REPORT (SQ) ---
EXAM DESCRIPTION: WRIST RIGHT 3 VIEWS COMPLETED DATE/TIME: 06/18/2019 11:27 am REASON FOR STUDY: fall, shoulder/wrist pain COMPARISON: 07/01/2017 NUMBER OF VIEWS: Three views. TECHNIQUE: AP, lateral, and oblique radiographic images acquired of the right wrist. LIMITATIONS: None. FINDINGS: MINERALIZATION: Normal. BONES: No acute fracture or dislocation. No worrisome bone lesions. Normal alignment. SOFT TISSUES: No soft tissue swelling. No foreign body. OTHER: No other significant finding. IMPRESSION: NEGATIVE STUDY OF THE RIGHT WRIST. NO RADIOGRAPHIC EVIDENCE OF ACUTE INJURY. TECHNICAL DOCUMENTATION: JOB ID: [id number] [employer]- All Rights Reserved Reading location - IP/workstation name: [email or web address]
--- NOTE | 2019-06-18 11:40 | RADIOLOGY REPORT (SQ) ---
EXAM DESCRIPTION: SHOULDER RIGHT 2 OR MORE VIEWS COMPLETED DATE/TIME: 06/18/2019 11:27 am REASON FOR STUDY: fall, shoulder/wrist pain COMPARISON: None. NUMBER OF VIEWS: Three views. TECHNIQUE: Internal rotation, external rotation, and Y view images acquired of the right shoulder. LIMITATIONS: None. FINDINGS: MINERALIZATION: Normal. BONES: No acute fracture. No worrisome bone lesions. JOINTS: The humeral head is elevated in the glenoid with narrowing of the subacromial space. VISUALIZED LUNGS AND RIBS: No pneumothorax. No rib fracture. SOFT TISSUES: No radiopaque foreign body. OTHER: No other significant finding. IMPRESSION: Narrowing of subacromial space suggests longstanding rotator cuff disease. TECHNICAL DOCUMENTATION: JOB ID: [id number] [employer]- All Rights Reserved Reading location - IP/workstation name: [email or web address]
--- NOTE | 2019-06-18 12:04 | RADIOLOGY REPORT (SQ) ---
EXAM DESCRIPTION: CT HEAD WITHOUT COMPLETED DATE/TIME: 06/18/2019 11:46 am REASON FOR STUDY: fall/syncope COMPARISON: 12/18/2015 TECHNIQUE: Axial images acquired through the brain without intravenous contrast. Images reviewed wi th bone, brain and subdural windows. Additional sagittal and coronal reconstructions were generated. Images stored on PACS. All CT scanners at this facility use dose modulation, iterative reconstruction, and/or weight based d osing when appropriate to reduce radiation dose to as low as reasonably achievable (ALARA). [facility]: Dose Right [facility]: CareDose [facility]: Dose Right [facility]: Teradose 4D [facility]: Potential RADIATION DOSE: mGy. LIMITATIONS: None. FINDINGS: VENTRICLES: Normal size and contour. CEREBRUM: An area of encephalomalacia in the right frontal lobe that is stable. No mass. No hemorrh age. No midline shift. No evidence of acute infarction. Normal hernandez/white matter differentiation. N o areas of low density in the white matter. CEREBELLUM: No masses. No hemorrhage. No alteration of density. No evidence for acute infarction. EXTRAAXIAL SPACES: No fluid collections. No masses. ORBITS AND GLOBE: No intra- or extraconal masses. Normal contour of globe without masses. CALVARIUM: No fracture. PARANASAL SINUSES: No fluid or mucosal thickening. SOFT TISSUES: No mass or hematoma. OTHER: No other significant finding. 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 EVIDENCE OF ACUTE STROKE: NO. COMMENT: Quality ID # [id number]: Final reports with documentation of one or more dose reduction techniques (e.g., Automated exposure control, adjustment of the mA and/or kV according to patient size, use of iterative reconstruction technique) TECHNICAL DOCUMENTATION: JOB ID: [id number] [employer]- All Rights Reserved Reading location - IP/workstation name: [email or web address]
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
[2019-06-18 13:22] VITALS: BP 123/72
--- NOTE | 2019-06-18 22:18 | EKG REPORT ---
SEVERITY:- ABNORMAL ECG - ATRIAL-SENSED VENTRICULAR-PACED COMPLEXES RIGHT BUNDLE BRANCH BLOCK : Confirmed by: Liya Caldwell MD 18-Jun-2019 22:17:53
== END 2019-06-18 13:29 | disposition home or self-care (01) ==
LOC: ER 09:29
DX: S63.501A Unspecified sprain of right wrist, initial encounter (principal); M25.531 Pain in right wrist; W19.XXXA Unspecified fall, initial encounter; I48.91 Unspecified atrial fibrillation; Z79.01 Long term (current) use of anticoagulants; Z95.810 Presence of automatic (implantable) cardiac defibrillator; Z76.82 Awaiting organ transplant status; Z87.891 Personal history of nicotine dependence; I50.9 Heart failure, unspecified; I25.10 Atherosclerotic heart disease of native coronary artery without angina pectoris; I25.2 Old myocardial infarction; I11.0 Hypertensive heart disease with heart failure; E11.9 Type 2 diabetes mellitus without complications
CPT/HCPCS: 93005; 36415; 83735; 85025; 80053; 81001; 73030; 73110; 70450; 93010; L3908; A9270

== ENCOUNTER 2019-06-27 10:19 | Emergency (ER) | payer MEDICARE ==
--- NOTE | 2019-06-27 11:40 | ER Document Report ---
ED Medical Screen (RME) - General Chief Complaint: Leg Pain Stated Complaint: LEFT LEG PAIN Time Seen by Provider: 06/27/19 11:35 Primary Care Provider: JOSÉ MIGUEL ROMAN NP [Primary Care Provider] - Follow up as needed Notes: Patient is a 58-year-old male who presents emergency department with a chief complaint of bleeding from 1 of his varicose veins. He states that " the vein shoots blood." He has an appointment with his vascular surgeon in [place] on Sunday. Exam: Oozing varicose vein to left pineda. I have greeted and performed a rapid initial assessment of this patient. A comprehensive ED assessment and evaluation of the patient, analysis of test results and completion of medical decision making process will be conducted by an additional ED providers. TRAVEL OUTSIDE OF THE [place] IN LAST 30 DAYS: No - Related Data Allergies/Adverse Reactions: Penicillins Allergy (Verified 06/27/19 10:29) trazodone Allergy (Verified 06/27/19 10:29) zolpidem [From Ambien] Allergy (Verified 06/27/19 10:29) Past Medical History - Past Medical History Cardiac Medical History: Reports: Hx Atrial Fibrillation, Hx Congestive Heart Failure, Hx Coronary Artery Disease, Hx Heart Attack, Hx Hypercholesterolemia, Hx Hypertension Neurological Medical History: Denies: Hx Seizures Endocrine Medical History: Reports: Hx Diabetes Mellitus Type 2 Renal/ Medical History: Denies: Hx Peritoneal Dialysis Musculoskeltal Medical History: Reports Hx Gout Psychiatric Medical History: Denies: Hx Depression Past Surgical History: Reports: Hx Cardiac Surgery - bypass/ppm/aicd/ablation, Hx Coronary Artery Bypass Graft, Hx Pacemaker - w/ defib - Immunizations Immunizations up to date: Yes Hx Diphtheria, Pertussis, Tetanus Vaccination: Yes History of Influenza Vaccine for 07/2017 - 12/2017 Season: Yes Physical Exam - Vital signs Vitals: Temp Pulse Resp BP Pulse Ox 97.7 F 84 18 127/76 H 100 06/27/19 10:21 06/27/19 10:21 06/27/19 10:21 06/27/19 10:06/27/19 10:21 Course - Vital Signs Vital signs: Temp Pulse Resp BP Pulse Ox 97.7 F 84 18 127/76 H 100 06/27/19 10:21 06/27/19 10:21 06/27/19 10:21 06/27/19 10:21 06/27/19 10:21 Doctor's Discharge - Discharge Referrals: JOSÉ MIGUEL ROMAN NP [Primary Care Provider] - Follow up as needed
--- NOTE | 2019-06-27 11:54 | ER Document Report ---
HPI - HPI Time Seen by Provider: 06/27/19 11:35 Pain Level: 4 Notes: Patient is a 58-year-old male who presents complaining of a varicose vein that will bleed intermittently. Patient states that he has had issues with bleeding varicose veins previously. Patient states that the bleeding started couple hours ago. He is eating and drinking without difficulty. He is urinating normally. He has an appointment with vascular on Sunday. Patient does have A. fib and is on Eliquis. No other concerns or complaints. Denies any headache, fever, URI, sore throat, chest pain, palpitations, syncope, cough, shortness of breath, wheeze, dyspnea, abdominal pain, nausea/vomiting/diarrhea, urinary retention, dysuria, hematuria, loss of control of bowel or bladder, numbness/tingling, saddle anesthesia, muscle paralysis, or rash. - ROS Systems Reviewed and Negative: Yes All other systems reviewed and negative - REPRODUCTIVE Reproductive: DENIES: : Past Medical History - Social History Smoking Status: Former Smoker Family History: Reviewed & Not Pertinent, Hypertension, Malignancy Patient has suicidal ideation: No Patient has homicidal ideation: No - Past Medical History Cardiac Medical History: Reports: Hx Atrial Fibrillation, Hx Congestive Heart Failure, Hx Coronary Artery Disease, Hx Heart Attack, Hx Hypercholesterolemia, Hx Hypertension Neurological Medical History: Denies: Hx Seizures Endocrine Medical History: Reports: Hx Diabetes Mellitus Type 2 Renal/ Medical History: Denies: Hx Peritoneal Dialysis Musculoskeletal Medical History: Reports Hx Gout Psychiatric Medical History: Denies: Hx Depression Past Surgical History: Reports: Hx Cardiac Surgery - bypass/ppm/aicd/ablation, Hx Coronary Artery Bypass Graft, Hx Pacemaker - w/ defib - Immunizations Immunizations up to date: Yes Hx Diphtheria, Pertussis, Tetanus Vaccination: Yes Hx Pneumococcal Vaccination: 05/28/14 Vertical Provider Document - CONSTITUTIONAL Agree With Documented VS: Yes Notes: PHYSICAL EXAMINATION: GENERAL: Well-appearing, well-nourished and in no acute distress. NECK: Normal range of motion, supple without lymphadenopathy Musculoskeletal: FROM to passive/active. Strength 5+/5. Extremities: No cyanosis, clubbing, or edema b/l. Peripheral pulses 2+. Capillary refill less than 3 seconds. NEUROLOGICAL: Normal speech, normal gait. Normal sensory, motor exams PSYCH: Normal mood, normal affect. SKIN: left pineda: there are two very small scabs noticed w/o any active bleeding after bandage removed. I was palpated this area w/o any recurrence of bleeding. Non-tender to palp. No erythema, warmth, purulence, abscess, induration, or streaks. - INFECTION CONTROL TRAVEL OUTSIDE OF THE [place] IN LAST 30 DAYS: No Course - Re-evaluation Re-evalutation: 06/27/19 11:57 Patient is an afebrile, well-hydrated, 58-year-old male who presents with a bleeding varicose vein, since resolved. Vitals are acceptable without significant tachycardia, tachypnea, or hypoxia. PE is otherwise unremarkable for any neurovascular compromise, obvious tendon/leg rupture, obvious fracture/dislocation, septic joint, DVT. Patient is nontoxic-appearing is able to tolerate p.o. without difficulty. He is able to ambulate without difficulty. With palpation manipulation, the bleeding did not recur. A compression dressing was applied with quick clot material for any recurrence of bleeding. The remaining material was given to patient to take home. Patient is aware that if the bleeding becomes uncontrollable or he is concerned in any way to return to the emergency department for management. Low suspicion for any other systemic emergent condition. Patient to recheck with his PCM in 2 to 3 days and keep appointment with vascular on Sunday. Return to the ED with any other worsening/concerning symptoms. Patient is in agreement. - Vital Signs Vital signs: Temp Pulse Resp BP Pulse Ox 97.7 F 84 18 127/76 H 100 06/27/19 10:21 06/27/19 10:21 06/27/19 10:21 06/27/19 10:21 06/27/19 10:21 Discharge - Discharge Clinical Impression: Bleeding from varicose vein Condition: Stable Disposition: HOME, SELF-CARE Additional Instructions: Rest, Ice, Compression, Elevation Wound dressing as reviewed Tylenol as needed Light stretches daily F/u with your PCP in 2-3 days for a recheck Keep appointment with vascular surgery as scheduled Return to the ED with any worsening symptoms and/or development of fever, headache, chest pain, palpitations, syncope, shortness of breath, trouble breathing, abdominal pain, n/v/d, muscle weakness/paralysis, numbness/tingling, swelling, redness, uncontrollable bleeding, or other worsening symptoms that are concerning to you. Forms: Elevated Blood Pressure Referrals: TETO PARADA MD [ACTIVE STAFF] - Follow up as needed JOSÉ MIGUEL ROMAN NP [Primary Care Provider] - 06/30/19
[2019-06-27 12:24] VITALS: BP 120/69
== END 2019-06-27 12:24 | disposition home or self-care (01) ==
LOC: ER 10:19
DX: I83.90 Asymptomatic varicose veins of unspecified lower extremity (principal); I48.91 Unspecified atrial fibrillation; Z79.01 Long term (current) use of anticoagulants; Z87.891 Personal history of nicotine dependence; I50.9 Heart failure, unspecified; I25.10 Atherosclerotic heart disease of native coronary artery without angina pectoris; I11.0 Hypertensive heart disease with heart failure; E11.9 Type 2 diabetes mellitus without complications
CPT/HCPCS: 99283

== ENCOUNTER 2019-08-28 16:11 | Emergency (ER) | payer MEDICARE ==
--- NOTE | 2019-08-28 16:38 | ER Document Report ---
ED Medical Screen (RME) - General Chief Complaint: Ankle Pain Stated Complaint: LEFT ANKLE BLEEDING Time Seen by Provider: 08/28/19 16:35 Primary Care Provider: JOSÉ MIGUEL ROMAN NP [Primary Care Provider] - Follow up as needed TRAVEL OUTSIDE OF THE [place] IN LAST 30 DAYS: No - HPI Notes: 08/28/19 16:36 Patient is a 58-year-old male with a history of varicose veins and on Eliquis who presents complaining of a bleeding varicose vein to his right anterior lower leg that began about an hour prior to arrival. Patient states that it was bleeding pretty heavily and has it wrapped currently. No fever or injury. I did notify charge nurse, who is going to get him a room. I have treated and performed a rapid initial assessment of this patient. A comprehensive ED assessment and evaluation of the patient, analysis of test results and completion of medical decision making process will be conducted by additional ED providers. PHYSICAL EXAMINATION: GENERAL: Well-appearing, well-nourished and in no acute distress. A&Ox4. Answers questions appropriately. Right leg: After a briefly undid the wound, the bleeding is a steady spray from the site at left denies puddle of blood on the floor. Compression wrap reapplied. - Related Data Allergies/Adverse Reactions: Penicillins Allergy (Verified 06/27/19 10:29) trazodone Allergy (Verified 06/27/19 10:29) zolpidem [From Ambien] Allergy (Verified 06/27/19 10:29) Past Medical History - Past Medical History Cardiac Medical History: Reports: Hx Atrial Fibrillation, Hx Congestive Heart Failure, Hx Coronary Artery Disease, Hx Heart Attack, Hx Hypercholesterolemia, Hx Hypertension Neurological Medical History: Denies: Hx Seizures Endocrine Medical History: Reports: Hx Diabetes Mellitus Type 2 Renal/ Medical History: Denies: Hx Peritoneal Dialysis Musculoskeltal Medical History: Reports Hx Gout Psychiatric Medical History: Denies: Hx Depression Past Surgical History: Reports: Hx Cardiac Surgery - bypass/ppm/aicd/ablation, Hx Coronary Artery Bypass Graft, Hx Pacemaker - w/ defib - Immunizations Immunizations up to date: Yes Hx Diphtheria, Pertussis, Tetanus Vaccination: Yes Physical Exam - Vital signs Vitals: Temp Pulse Resp BP Pulse Ox 98.0 F 71 16 108/60 100 08/28/19 16:21 08/28/19 16:21 08/28/19 16:21 08/28/19 16:21 08/28/19 16:21 Course - Vital Signs Vital signs: Temp Pulse Resp BP Pulse Ox 98.0 F 71 16 108/60 100 08/28/19 16:21 08/28/19 16:21 08/28/19 16:21 08/28/19 16:21 08/28/19 16:21 Doctor's Discharge - Discharge Referrals: JOSÉ MIGUEL ROMAN NP [Primary Care Provider] - Follow up as needed
--- NOTE | 2019-08-28 18:24 | ER Document Report ---
ED Extremity Problem, Lower - General Chief Complaint: Ankle Pain Stated Complaint: LEFT ANKLE BLEEDING Time Seen by Provider: 08/28/19 16:35 Primary Care Provider: JOSÉ MIGUEL ROMAN NP [Primary Care Provider] - Follow up as needed Notes: 58-year-old male on Eliquis presents for bleed to varicose vein. Patient states this is ongoing problem since April. Patient states he has had to go to the emergency room multiple times one time required sutures. Patient has an appointment with his vascular surgeon on Sunday and states he has made multiple appointments however either he ends up in emergency room for bleeding or the vascular surgeon had to cancel due to other emergencies. Patient denies any dizziness, chest pain, dyspnea. TRAVEL OUTSIDE OF THE [place] IN LAST 30 DAYS: No - Related Data Allergies/Adverse Reactions: Penicillins Allergy (Verified 06/27/19 10:29) trazodone Allergy (Verified 06/27/19 10:29) zolpidem [From Ambien] Allergy (Verified 06/27/19 10:29) Past Medical History - Social History Smoking Status: Unknown if Ever Smoked Family History: Reviewed & Not Pertinent, Hypertension, Malignancy Patient has suicidal ideation: No Patient has homicidal ideation: No - Past Medical History Cardiac Medical History: Reports: Hx Atrial Fibrillation, Hx Congestive Heart Failure, Hx Coronary Artery Disease, Hx Heart Attack, Hx Hypercholesterolemia, Hx Hypertension Neurological Medical History: Denies: Hx Seizures Endocrine Medical History: Reports: Hx Diabetes Mellitus Type 2 Renal/ Medical History: Denies: Hx Peritoneal Dialysis Musculoskeletal Medical History: Reports Hx Gout Psychiatric Medical History: Denies: Hx Depression Past Surgical History: Reports: Hx Cardiac Surgery - bypass/ppm/aicd/ablation, Hx Coronary Artery Bypass Graft, Hx Pacemaker - w/ defib - Immunizations Immunizations up to date: Yes Hx Diphtheria, Pertussis, Tetanus Vaccination: Yes Hx Pneumococcal Vaccination: 05/28/14 Review of Systems - Review of Systems Notes: Constitutional: Negative for fever. HENT: Negative for sore throat. Eyes: Negative for visual changes. Cardiovascular: Negative for chest pain. Respiratory: Negative for shortness of breath. Gastrointestinal: Negative for abdominal pain, vomiting or diarrhea. Genitourinary: Negative for dysuria. Musculoskeletal: Negative for back pain. Skin: Positive for varicose vein bleeding. Negative for rash. Neurological: Negative for headaches, weakness or numbness. 10 point ROS negative except as marked above and in HPI. Physical Exam - Vital signs Vitals: Temp Pulse Resp BP Pulse Ox 98.0 F 71 16 108/60 100 08/28/19 16:21 08/28/19 16:21 08/28/19 16:21 08/28/19 16:21 08/28/19 16:21 - Notes Notes: GENERAL: Well-appearing, well-nourished and in no acute distress. HEAD: Atraumatic, normocephalic. EYES: Extraocular movements intact, sclera anicteric, conjunctiva are normal. NECK: Normal range of motion, supple without lymphadenopathy or JVD. LUNGS: Breath sounds clear to auscultation bilaterally and equal. No wheezes rales or rhonchi. HEART: Regular rate and rhythm without murmurs, rubs or gallops. EXTREMITIES: Normal range of motion, no pitting or edema. No clubbing or cyanosis. Left lower leg: Dressing removed, arterial bleed noted. NEUROLOGICAL: Cranial nerves II through XII grossly intact. Normal speech, normal gait. PSYCH: Normal mood, normal affect. SKIN: Warm, Dry, normal turgor, no rashes or lesions noted. Course - Re-evaluation Re-evalutation: 08/28/19 58 y/o male on Eliquis presents for varicose vein bleeding that occurred earlier today. Pt states this has been ongoing since April. Pt has appointment on Sunday with vascular surgeon. Dressing removed - arterial bleed noted. QuikClot applied with compression dressing. Discussed with Dr. Anand, attending, who suggests TXA-soaked gauze and lidocaine with epi. 08/28/19 19:05 Compression dressing removed. Lidocaine with epi injected around site and TXA-soaked gauze placed with compression dressing. Will keep on for 30 minutes and reassess. 08/28/19 19:42 Dressing removed. Bleeding stopped. Compression dressing applied. Pt encouraged to keep appointment with his vascular surgeon on Sunday. Return precautions discussed. All questions/concerns addressed prior to discharge. Pt voices understanding and agrees with plan of care. - Vital Signs Vital signs: Temp Pulse Resp BP Pulse Ox 98.0 F 71 16 108/60 100 08/28/19 16:21 08/28/19 16:21 08/28/19 16:21 08/28/19 16:21 08/28/19 16:21 Discharge - Discharge Clinical Impression: Bleeding from varicose vein Condition: Stable Disposition: HOME, SELF-CARE Additional Instructions: Please follow-up with your vascular surgeon on Sunday. Please return to ER for any worsening symptoms, including worsening bleeding, fevers, increased pain, or any symptoms that are concerning to you. Referrals: JOSÉ MIGUEL ROMAN NP [Primary Care Provider] - Follow up as needed
[2019-08-28] MEDS ORDERED: LIDOCAINE 1%/EPINEPHRINE INJ 20 ML VIAL INJ ONE (18:35)
[2019-08-28] MEDS ORDERED: TRANEXAMIC ACID INJ/PF 1,000 MG/10 ML SDV IV ONE (18:36)
[2019-08-28 19:55] VITALS: BP 129/58
== END 2019-08-28 19:55 | disposition home or self-care (01) ==
LOC: ER 16:11
DX: I83.892 Varicose veins of left lower extremity with other complications (principal); I48.91 Unspecified atrial fibrillation; Z79.01 Long term (current) use of anticoagulants; I25.10 Atherosclerotic heart disease of native coronary artery without angina pectoris; I10 Essential (primary) hypertension; E11.9 Type 2 diabetes mellitus without complications; Z88.0 Allergy status to penicillin; Z88.8 Allergy status to other drugs, medicaments and biological substances
CPT/HCPCS: 99283; J3490

== ENCOUNTER 2019-09-22 09:17 | Emergency (ER) | payer MEDICARE ==
[2019-09-22 09:39] VITALS: BP 103/63
[2019-09-22] MEDS ORDERED: LIDOCAINE 5% (700 MG) TRANSDERMAL ADH..PATCH TP ONE (10:29)
--- NOTE | 2019-09-22 10:34 | ER Document Report ---
HPI - HPI Time Seen by Provider: 09/22/19 10:22 Pain Level: 5 Context: Patient is a 59-year-old male with a history of chronic back pain, "heart problems," on eliquis who presents emergency department with a chief complaint of mid to lower back pain. Patient reports he has had back pain for 1 year. Patient reports that it has been bothering him more over the past month. Patient reports over the weekend he was having severe back pain when he attempted to stand up and fell onto his right side striking the hardwood floor. Patient reports she is on Eliquis. Patient reports he did not hit his head or have a loss of consciousness. Patient reports mid back pain. Patient denies loss of bowel or bladder. Patient reports intermittent tingling to his bilateral feet that is not new since the fall. Patient reports that he is also having right rib pain that is worse with movement or deep breath. Patient denies abdominal pain. Patient reports that he did attempt to go to his primary care physician but was told that they do not prescribe pain medication and to come to the emergency department. - REPRODUCTIVE Reproductive: DENIES: : Past Medical History - General Information source: Patient - Social History Smoking Status: Former Smoker Chew tobacco use (# tins/day): No Frequency of alcohol use: Social Drug Abuse: None Lives with: Family Family History: Reviewed & Not Pertinent, Hypertension, Malignancy Patient has suicidal ideation: No Patient has homicidal ideation: No - Past Medical History Cardiac Medical History: Reports: Hx Atrial Fibrillation, Hx Congestive Heart Failure, Hx Coronary Artery Disease, Hx Heart Attack, Hx Hypercholesterolemia, Hx Hypertension Pulmonary Medical History: Reports: None EENT Medical History: Reports: None Neurological Medical History: Reports: None. Denies: Hx Seizures Endocrine Medical History: Reports: Hx Diabetes Mellitus Type 2 Renal/ Medical History: Reports: None. Denies: Hx Peritoneal Dialysis Malignancy Medical History: Reports None GI Medical History: Reports: None Musculoskeletal Medical History: Reports Hx Gout Skin Medical History: Reports None Psychiatric Medical History: Reports: None Denies: Hx Depression Traumatic Medical History: Reports: None Infectious Medical History: Reports: None Past Surgical History: Reports: Hx Cardiac Surgery - bypass/ppm/aicd/ablation, Hx Coronary Artery Bypass Graft, Hx Pacemaker - w/ defib - Immunizations Immunizations up to date: Yes Hx Diphtheria, Pertussis, Tetanus Vaccination: Yes Hx Pneumococcal Vaccination: 05/28/14 Vertical Provider Document - CONSTITUTIONAL Agree With Documented VS: Yes Exam Limitations: No Limitations General Appearance: No Apparent Distress - INFECTION CONTROL TRAVEL OUTSIDE OF THE [place] IN LAST 30 DAYS: No - HEENT HEENT: Atraumatic, Normocephalic, PERRLA - NECK Neck: Lymphadenopathy-Right - RESPIRATORY Respiratory: Breath Sounds Normal, No Respiratory Distress Notes: Patient does have minimal ecchymosis noted to the right upper lateral ribs. No crepitus noticed with palpation. Breathing is even and unlabored. - CARDIOVASCULAR Cardiovascular: Regular Rate, Regular Rhythm - GI/ABDOMEN Gastrointestinal: Abdomen Soft, Abdomen Non-Tender - BACK Notes: Patient does not have any cervical or lumbar midline tenderness with palpation. Patient does have slight thoracic midline tenderness. No ecchymosis noted to the back. - MUSCULOSKELETAL/EXTREMETIES Musculoskeletal/Extremeties: FROM, Non-Tender - NEURO Level of Consciousness: Awake, Alert, Appropriate - DERM Integumentary: Warm, Dry, No Rash Course - Re-evaluation Re-evalutation: 09/22/19 10:33 Patient is driving. We will give the patient a Lidoderm patch, x-ray his chest with right rib films as well as his thoracic spine. Will prescribe the patient Lidoderm patches to go home with and instructed to change every 24 hours. Patient ultimately does need to follow-up with his primary care physician as we do not treat chronic pain here in the emergency department. 09/22/19 12:28 I did discuss the results of the x-rays with the patient. Patient reports he is not currently hurting or having rib pain. Did inform him to continue using his Lidoderm patches ultimately does need to follow-up with his primary care physician. Patient verbalized understanding denies questions at discharge. - Vital Signs Vital signs: Temp Pulse Resp BP Pulse Ox 97.7 F 66 18 103/63 100 09/22/19 10:14 09/22/19 09:21 09/22/19 10:14 09/22/19 09:21 09/22/19 10:14 - Diagnostic Test Radiology reviewed: Reports reviewed Radiology results interpreted by me: 09/22/19 11:42 Ribs w/Chest X-Ray 09/22/19 10:29 IMPRESSION: NO PNEUMOTHORAX. NO DISPLACED RIB FRACTURES. Thoracic Spine X-Ray 09/22/19 10:30 IMPRESSION: SPONDYLOSIS WITHOUT BONE LESION OR FRACTURE. Discharge - Discharge Clinical Impression: Back pain Qualifiers: Back pain location: thoracic back pain Chronicity: acute Back pain laterality: midline Qualified Code(s): M54.6 - Pain in thoracic spine Condition: Stable Disposition: HOME, SELF-CARE Additional Instructions: Today you are seen in the emergency department for mid back pain and after a fall. We did obtain a chest x-ray with focus on the right side of your ribs and did not see any rib fracture. Your symptoms are most likely consistent to a rib contusion which is a bruising. These are quite painful and can take weeks to heal. Please make sure you are coughing and deep breathing to help prevent pneumonia. We did obtain an x-ray of your thoracic spine which is your mid back. It did show some arthritis but no acute abnormality. I am giving you a prescription for your Lidoderm patch. This is a patch that you will placed to your back every 24 hours as needed for pain. Please follow- up with your primary care physician for reevaluation if you continue to have pain. Rib Contusion You have been diagnosed as having bruised ribs. It will usually take a few weeks for these injured ribs to heal. You should cough or take a deep breath at least every hour or two to prevent lung complications. You should not engage in any strenuous physical activity until released by your physician. The usual rule is "if it hurts, don't do it." Return if you develop any of the following: (1) Fever or chills. (2) Persistent cough, coughing up blood, or shortness of breath. (3) Increasing pain. (4) Weakness, lightheadedness, or fainting. Prescriptions: Lidocaine [Lidoderm 5% (700 mg) Transdermal Patch] 1 patch TP DAILY PRN #[id number] adh..patch PRN Reason: Referrals: JOSÉ MIGUEL ROMAN NP [Primary Care Provider] - Follow up as needed
--- NOTE | 2019-09-22 11:36 | RADIOLOGY REPORT (SQ) ---
EXAM DESCRIPTION: T SPINE AP/LAT COMPLETED DATE/TIME: 09/22/2019 11:17 am REASON FOR STUDY: chronic back pain, fell over the wknd COMPARISON: None. NUMBER OF VIEWS: Two views. TECHNIQUE: AP and lateral radiographic images acquired of the thoracic spine. LIMITATIONS: None. FINDINGS: MINERALIZATION: Normal. ALIGNMENT: Normal. No scoliosis. VERTEBRAE: No fracture or bone lesion. Maintained height, normal segmentation. DISCS: Multilevel disc space narrowing with osteophytes. HARDWARE: None in the spine. MEDIASTINUM AND SOFT TISSUES: Normal heart size and aortic contour. No soft tissue abnormality. VISUALIZED LUNG COFFMAN: Clear. OTHER: No other significant finding. IMPRESSION: SPONDYLOSIS WITHOUT BONE LESION OR FRACTURE. TECHNICAL DOCUMENTATION: JOB ID: [id number] [employer]- All Rights Reserved Reading location - IP/workstation name: [email or web address]
--- NOTE | 2019-09-22 11:37 | RADIOLOGY REPORT (SQ) ---
EXAM DESCRIPTION: RIBS RIGHT W/PA CHEST COMPLETED DATE/TIME: 09/22/2019 11:17 am REASON FOR STUDY: fell over weekend, having right rib pain COMPARISON: 12/24/2018. TECHNIQUE: Frontal view of the chest and additional views of the right ribs acquired. NUMBER OF VIEWS: Three view. LIMITATIONS: None. FINDINGS: FRONTAL CXR: No pneumothorax. No pleural effusion. No atelectasis or infiltrates. Defib rillator, sternotomy wires, and coronary bypass markers. RIBS: No displaced rib fractures. No lytic or blastic bony lesions. OTHER: No other significant finding. IMPRESSION: NO PNEUMOTHORAX. NO DISPLACED RIB FRACTURES. COMMENT: SITE OF TRAUMA/COMPLAINT MARKED/STAMP COMPLETED: YES. TECHNICAL DOCUMENTATION: JOB ID: [id number] [employer]- All Rights Reserved Reading location - IP/workstation name: [email or web address]
== END 2019-09-22 12:28 | disposition home or self-care (01) ==
LOC: ER 09:17
DX: M47.9 Spondylosis, unspecified (principal); M54.6 Pain in thoracic spine; R20.2 Paresthesia of skin; R07.81 Pleurodynia; S20.20XA Contusion of thorax, unspecified, initial encounter; W19.XXXA Unspecified fall, initial encounter; I25.10 Atherosclerotic heart disease of native coronary artery without angina pectoris; I10 Essential (primary) hypertension; E11.9 Type 2 diabetes mellitus without complications; I48.91 Unspecified atrial fibrillation; Z79.01 Long term (current) use of anticoagulants; Z95.1 Presence of aortocoronary bypass graft; Z87.891 Personal history of nicotine dependence; Z95.810 Presence of automatic (implantable) cardiac defibrillator
CPT/HCPCS: 71101; 72070; A9270; 99283

== ENCOUNTER 2019-10-24 08:23 | Inpatient (IN) | payer MEDICARE ==
--- NOTE | 2019-10-24 10:42 | RADIOLOGY REPORT (SQ) ---
EXAM DESCRIPTION: CERV SP 3 VIEW OR LESS COMPLETED DATE/TIME: 10/24/2019 10:21 am REASON FOR STUDY: fall; back pain COMPARISON: None. NUMBER OF VIEWS: Three views. TECHNIQUE: AP, lateral, swimmer's lateral, and odontoid radiographic images acquired of the cervical spine. LIMITATIONS: None. FINDINGS: MINERALIZATION: Normal. ALIGNMENT: Anatomic. VERTEBRAE: Vertebral bodies of normal height. DISCS: There is mild disc narrowing at C2-3 C4-5, C5-6, and C6-7. Marginal osteophytes. HARDWARE: None in the spine. SOFT TISSUES: No masses or calcifications. Lung apices clear. OTHER: No other significant finding. IMPRESSION: Degenerative disc disease and spondylosis. No acute finding. TECHNICAL DOCUMENTATION: JOB ID: [id number] [employer]- All Rights Reserved Reading location - IP/workstation name: [email or web address]
--- NOTE | 2019-10-24 10:43 | RADIOLOGY REPORT (SQ) ---
EXAM DESCRIPTION: T SPINE AP/LAT COMPLETED DATE/TIME: 10/24/2019 10:21 am REASON FOR STUDY: fall; back pain COMPARISON: AP and lateral views of the thoracic spine from 09/22/2019. NUMBER OF VIEWS: Two views. TECHNIQUE: AP and lateral radiographic images acquired of the thoracic spine. LIMITATIONS: None. FINDINGS: MINERALIZATION: Normal. ALIGNMENT: No scoliotic curvature or spondylolisthesis. The normal alignment of the pedicles and spi nous processes is preserved. VERTEBRAE: Evaluation of the cervicothoracic junction is limited due to overlying soft tissues. The other lumbar vertebral body heights are preserved. There is no fracture or segmentation abnormality. DISCS: The intervertebral disc spaces are narrowed with multilevel endplate osteophyte formation. HARDWARE: None in the spine. MEDIASTINUM AND SOFT TISSUES: Status post median sternotomy and CABG. There is a left subclavian vei n approach ICD in place. VISUALIZED LUNG COFFMAN: Clear. OTHER: No other finding. IMPRESSION: No acute fracture or malalignment of the thoracic spine. TECHNICAL DOCUMENTATION: JOB ID: [id number] [employer]- All Rights Reserved Reading location - IP/workstation name: [email or web address]
[2019-10-24 11:01] LABS: ABSOLUTE BASOPHILS # (AUTO) 0.1 10^3/uL (0.0-0.2); ABSOLUTE EOSINOPHILS # (AUTO) 0.2 10^3/uL (0.0-0.6); ABSOLUTE LYMPHOCYTES (AUTO) 0.7 10^3/uL (0.5-4.7); ABSOLUTE MONOCYTES (AUTO) 0.5 10^3/uL (0.1-1.4); ABSOLUTE NEUT (AUTO) 4.3 10^3/uL (1.7-8.2); BASOPHILS % (AUTO) 1.2 % (0-2); EOSINOPHILS % (AUTO) 3.1 % (0-6); HEMATOCRIT 32.1 % (37.9-51.0); HEMOGLOBIN 10.7 g/dL (13.5-17.0); LYMPHOCYTES % (AUTO) 11.5 % (13-45); MEAN CORPUSCULAR HGB CONC 33.3 g/dL (32.0-36.0); MEAN CORPUSCULAR VOLUME 78 fl (80-97); MONOCYTES % (AUTO) 9.2 % (3-13); PLATELET COUNT 220 10^3/uL (150-450); RED BLOOD COUNT 4.11 10^6/uL (4.35-5.55); RED CELL DISTRIBUTION WIDTH 18.9 % (11.5-14.0); TOTAL CELLS COUNTED % (AUTO) 100 %; WHITE BLOOD COUNT 5.8 10^3/uL (4.0-10.5)
[2019-10-24 11:08] LABS: INTERNATIONAL RATION (INR) 1.24; PROTHROMBIN TIME 15.7 SEC (11.4-15.4)
[2019-10-24 11:28] LABS: VENOUS BLOOD BASE EXCESS 6.7 mmol/L; VENOUS BLOOD HCO3 32.8 mmol/L (20-32); VENOUS BLOOD PCO2 53.4 mmHg (35-63); VENOUS BLOOD PH 7.41 (7.30-7.42)
[2019-10-24 11:43] LABS: ALBUMIN 3.2 g/dL (3.5-5.0); ALKALINE PHOSPHATASE 145 U/L (38-126); ANION GAP 9 (5-19); ASPARTATE AMINO TRANSFERASE 34 U/L (17-59); BILIRUBIN,TOTAL 1.8 mg/dL (0.2-1.3); BLOOD UREA NITROGEN 19 mg/dL (7-20); CALCIUM 9.6 mg/dL (8.4-10.2); CARBON DIOXIDE 31 mmol/L (22-30); CHLORIDE 90 mmol/L (98-107); GLUCOSE 108 mg/dL (75-110); POTASSIUM 3.2 mmol/L (3.6-5.0); TOTAL PROTEIN 5.8 g/dL (6.3-8.2)
[2019-10-24] MEDS ORDERED: POTASSI CL 20 MEQ/NS 1L 1,000 ML IV ONE (11:52)
--- NOTE | 2019-10-24 12:16 | RADIOLOGY REPORT (SQ) ---
EXAM DESCRIPTION: CT HEAD WITHOUT COMPLETED DATE/TIME: 10/24/2019 11:51 am REASON FOR STUDY: falls, weakness COMPARISON: CT of the head without contrast from 06/18/2019 TECHNIQUE: Axial images acquired through the brain without intravenous contrast. Images reviewed wi th bone, brain and subdural windows. Additional sagittal and coronal reconstructions were generated. Images stored on PACS. All CT scanners at this facility use dose modulation, iterative reconstruction, and/or weight based d osing when appropriate to reduce radiation dose to as low as reasonably achievable (ALARA). [facility]: Dose Right [facility]: CareDose [facility]: Dose Right [facility]: Teradose 4D [facility]: Smart [employer] Life RADIATION DOSE: CT Rad equipment meets quality standard of care and radiation dose reduction techniq ues were employed. CTDIvol: 53.2 mGy. DLP: 1044 mGy-cm. LIMITATIONS: None. FINDINGS: There are chronic areas of encephalomalacia and gliosis in the right frontal and left occi pital lobes. There is a new area of hypoattenuation within the left cerebellar hemisphere (image 12 of series 2) that is associated with loss of the normal hernandez-white matter differentiation. There is no acute intracranial hemorrhage, extra-axial fluid collection, mass effect or midline shift. There is no effacement of the basal subarachnoid cisterns. The caliber the ventricles is concordant with t he degree of sulcation and unchanged from 06/18/2019. The orbits and globes are intact. There is no fracture of the calvarium. The paranasal sinuses and the mastoid air cells are clear. IMPRESSION: 1. New area of hypoattenuation within the left cerebellar hemisphere (image 12 of series 2). Correlate with MRI to exclude an acute infarct. 2. Chronic areas of encephalomalacia and gliosis in the right frontal and left occipital lobes. COMMENT: Quality ID # [id number]: Final reports with documentation of one or more dose reduction techniques (e.g., Automated exposure control, adjustment of the mA and/or kV according to patient size, use of iterative reconstruction technique) TECHNICAL DOCUMENTATION: JOB ID: [id number] [employer]- All Rights Reserved Reading location - IP/workstation name: [email or web address]
--- NOTE | 2019-10-24 12:21 | RADIOLOGY REPORT (SQ) ---
EXAM DESCRIPTION: CT LUMBAR SPINE WITHOUT COMPLETED DATE/TIME: 10/24/2019 11:51 am REASON FOR STUDY: fall, pain COMPARISON: CT of the abdomen pelvis with contrast from 12/24/2018. TECHNIQUE: Axial images acquired through the lumbar spine without intravenous contrast. Images revi ewed with lung, soft tissue and bone windows. Reconstructed coronal and sagittal MPR images reviewed . All images stored on PACS. All CT scanners at this facility use dose modulation, iterative reconstruction, and/or weight based d osing when appropriate to reduce radiation dose to as low as reasonably achievable (ALARA). [facility]: Dose Right [facility]: CareDose [facility]: Dose Right [facility]: Teradose 4D [facility]: [employer] LIMITATIONS: None. FINDINGS: SEGMENTATION: There are 5 lumbar-type vertebral bodies. There is no transitional anatomy at the lumbosacral junction. ALIGNMENT: The grade 1 retrolisthesis of L1 relative to L2 is unchanged. VERTEBRAL BODIES: The lumbar vertebral body heights are preserved. There is no fracture. DISCS: Evaluation of the spinal canal is limited due to the absence of intravenous contrast. The L3- L4, L4-L5 and L5-S1 intervertebral disc spaces are narrowed. At L4-L5 there is a broad-based disc b ulge that encroaches on the inferior aspect of the neuroforamina and in combination with the loss of the intervertebral disc space height results in mild narrowing of the neuroforamina bilaterally. The re is no high-grade spinal or foraminal stenosis in the lumbar spine. PEDICLES, TRANSVERSE PROCESSES: Intact. FACETS, POSTERIOR ELEMENTS: Intact. HARDWARE: None in the spine. VISUALIZED RIBS: No fractures. SOFT TISSUES: No no acute findings. OTHER: No other finding. IMPRESSION: No acute fracture or malalignment of the lumbar spine. TECHNICAL DOCUMENTATION: JOB ID: [id number] Quality ID # [id number]: Final reports with documentation of one or more dose reduction techniques (e.g., Au tomated exposure control, adjustment of the mA and/or kV according to patient size, use of iterative reconstruction technique) 2010 [employer]- All Rights Reserved Reading location - IP/workstation name: [email or web address]
[2019-10-24 13:13] LABS: APPEARANCE,URINE CLEAR; BILIRUBIN,URINE NEGATIVE (NEGATIVE); COLOR,URINE STRAW; GLUCOSE, URINE NEGATIVE (NEGATIVE); KETONES,URINE NEGATIVE (NEGATIVE); LEUKOCYTE ESTERASE,URINE NEGATIVE (NEGATIVE); NITRITE,URINE NEGATIVE (NEGATIVE); PROTEIN,URINE NEGATIVE (NEGATIVE); URINE SPECIFIC GRAVITY 1.006; UROBILINOGEN,URINE NEGATIVE mg/dL (<2.0)
--- NOTE | 2019-10-24 13:23 | RADIOLOGY REPORT (SQ) ---
EXAM DESCRIPTION: CHEST SINGLE VIEW COMPLETED DATE/TIME: 10/24/2019 1:11 pm REASON FOR STUDY: AMS COMPARISON: AP view of the chest from 12/24/2018. EXAM PARAMETERS: NUMBER OF VIEWS: One view. TECHNIQUE: An AP view of the chest was obtained. RADIATION DOSE: NA LIMITATIONS: None. FINDINGS: LUNGS AND PLEURA: Acute pleural and parenchymal opacities in left base that obscure the co ntour of the left hemidiaphragm and blunts the left lateral costophrenic sulcus. There is no pneumot horax. MEDIASTINUM AND HILAR STRUCTURES: No mediastinal or hilar contour abnormality. HEART AND VASCULAR STRUCTURES: Stable cardiomegaly. BONES: No acute findings. HARDWARE: Status post median sternotomy and CABG. There is a left subclavian vein approach triple le ad ICD in place. OTHER: No other finding. IMPRESSION: Acute pleural and parenchymal opacities in the left base that could represent a combinat ion of pleural fluid, atelectasis, and/or consolidation. TECHNICAL DOCUMENTATION: JOB ID: [id number] [employer]- All Rights Reserved Reading location - IP/workstation name: [email or web address]
--- NOTE | 2019-10-24 14:08 | ER Document Report ---
Entered by ROBERTO CARLOS RAINES SCRIBE 10/24/19 1124 Acting as scribe for:TYREL KOWALSKI DO ED Fall - General Chief Complaint: Fall Stated Complaint: FALL Time Seen by Provider: 10/24/19 10:26 Information source: Patient Notes: This 59-year-old male patient presents to the emergency department today with complaints of a syncopal event that occurred just prior to arrival. Patient states that he fell backwards hitting his back on the toilet. Patient states he "dozed off for second". Patient also complains of right knee pain. Patient denies any shortness of breath. TRAVEL OUTSIDE OF THE [place] IN LAST 30 DAYS: No - Related data Allergies/Adverse Reactions: Penicillins Allergy (Verified 09/22/19 10:14) trazodone Allergy (Verified 09/22/19 10:14) zolpidem [From Ambien] Allergy (Verified 09/22/19 10:14) Past Medical History - General Information source: Patient - Social History Smoking Status: Unknown if Ever Smoked Cigarette use (# per day): No Frequency of alcohol use: None Drug Abuse: None Lives with: Family Family History: Reviewed & Not Pertinent, Hypertension, Malignancy Patient has suicidal ideation: No Patient has homicidal ideation: No - Past Medical History Cardiac Medical History: Reports: Hx Atrial Fibrillation, Hx Congestive Heart Failure, Hx Coronary Artery Disease, Hx Heart Attack, Hx Hypercholesterolemia, Hx Hypertension Neurological Medical History: Denies: Hx Seizures Endocrine Medical History: Reports: Hx Diabetes Mellitus Type 2 Renal/ Medical History: Denies: Hx Peritoneal Dialysis Musculoskeletal Medical History: Reports Hx Gout Psychiatric Medical History: Denies: Hx Depression Past Surgical History: Reports: Hx Cardiac Surgery - bypass/ppm/aicd/ablation, Hx Coronary Artery Bypass Graft, Hx Pacemaker - w/ defib - Immunizations Immunizations up to date: Yes Hx Diphtheria, Pertussis, Tetanus Vaccination: Yes Hx Pneumococcal Vaccination: 05/28/14 Review of Systems - Review of Systems Constitutional: No symptoms reported EENT: No symptoms reported Cardiovascular: See HPI, Syncope Respiratory: denies: Short of breath Gastrointestinal: No symptoms reported Genitourinary: No symptoms reported Male Genitourinary: No symptoms reported Musculoskeletal: See HPI, Back pain, Joint pain Skin: No symptoms reported Hematologic/Lymphatic: No symptoms reported Neurological/Psychological: No symptoms reported -: Yes All other systems reviewed and negative Physical Exam - Vital signs Vitals: Pulse BP Pulse Ox 62 94/51 L 98 10/24/19 08:33 10/24/19 08:33 10/24/19 08:33 Interpretation: Hypotensive - General General appearance: Other - Chronically ill-appearing - HEENT Eyes: Normal Conjunctiva: Normal Cornea: Normal Extraocular movements intact: Yes Mucous membranes: Dry Pharynx: Normal - Respiratory Respiratory status: No respiratory distress Breath sounds: Normal - Cardiovascular Rhythm: Irregularly irregular - Abdominal Inspection: Normal Tenderness: Nontender - Back Back: Tender - Tenderness to palpation of the lumbar spine - Extremities General upper extremity: Nontender, Normal ROM General lower extremity: Edema Forearm: Ecchymosis - Neurological Cognition: Confused [place] Coma Scale Eye Opening: Spontaneous [place] Coma Scale Verbal: Confused [place] Coma Scale Motor: Obeys Commands [place] Coma Scale Total: 14 Speech: Normal Cranial nerves: Normal Cerebellar coordination: Truncal ataxia Motor strength normal: LUE, RUE, LLE, RLE Course - Re-evaluation Re-evalutation: 10/24/19 14:00 Patient is a 59-year-old male who comes in after syncope and falls, feeling off balance. Was just discharged from [facility]. Patient has a history of heart failure and an ejection fraction of 10 to 15%. States that he was recently taken off some of his medications including spironolactone and potassium. Patient found to have what appears to be a new cerebellar infarct. Will require admission due to this, hyponatremia and hypokalemia. Slow fluid replacement initiated due to hypotension Hospitalist contacted about admission. Will accept for admission to [facility]. 10/24/19 1530 Hospitalist request I transfer patient to [facility] due to continuity of care with head soft sugar operator. Dr. Colon thinks patient would be better off there. No necessarily active cardiac issue but patient has a history of heart failure and ejection fraction of 10 to 15%. 10/24/19 1555 Call placed to [facility]. Hospitalist will call me back. 10/24/19 16:45 Discussed with hospitalist at [facility] who does not feel that the patient meets any criteria to be transferred at this time. Patient is stable at this time with no active chest pain. If there are any issues that require management from resources of there, will accept for transfer at that time 10/24/19 16:50 Called back to hospitalist here who will admit the patient. Stable at the time of admission. - Vital Signs Vital signs: Temp Pulse Resp BP Pulse Ox 97.4 F 54 L 16 106/48 L 100 10/24/19 19:49 10/24/19 19:49 10/24/19 19:49 10/24/19 19:49 10/24/19 19:49 - Laboratory Result Diagrams: 10/24/19 08:51 10/24/19 08:51 Laboratory results interpreted by me: 10/24/19 10/24/19 10/24/19 08:51 08:51 08:51 RBC 4.11 L Hgb 10.7 L Hct 32.1 L MCV 78 L MCH 26.0 L RDW 18.9 H Lymph % (Auto) 11.5 L PT 15.7 H VBG HCO3 Sodium 129.5 L Potassium 3.2 L Chloride 90 L Carbon Dioxide 31 H Total Bilirubin 1.8 H Direct Bilirubin 1.0 H Alkaline Phosphatase 145 H NT-Pro-B Natriuret Pep Total Protein 5.8 L Albumin 3.2 L 10/24/19 10/24/19 08:51 11:11 RBC Hgb Hct MCV MCH RDW Lymph % (Auto) PT VBG HCO3 32.8 H Sodium Potassium Chloride Carbon Dioxide Total Bilirubin Direct Bilirubin Alkaline Phosphatase NT-Pro-B Natriuret Pep 6220 H Total Protein Albumin Critical Care Note - Critical Care Note Total time excluding time spent on procedures (mins): 90 - Evaluation and management of patient, coordination of admission versus transfer, consultation with specialist Discharge - Discharge Clinical Impression: Hyponatremia, Hypokalemia CVA (cerebral vascular accident) Qualifiers: CVA mechanism: unspecified Qualified Code(s): I63.9 - Cerebral infarction, unspecified Syncope Qualifiers: Syncope type: unspecified Qualified Code(s): R55 - Syncope and collapse Cardiomyopathy Qualifiers: Cardiomyopathy type: unspecified Qualified Code(s): I42.9 - Cardiomyopathy, unspecified Condition: Stable Disposition: ADMITTED INPATIENT Admitting Provider: Jason (Hospitalist) Unit Admitted: IMCU I personally performed the services described in the documentation, reviewed and edited the documentation which was dictated to the scribe in my presence, and it accurately records my words and actions.
[2019-10-24] MEDS ORDERED: FENTANYL CITRATE INJ/PF 100 MCG/2 ML AMPUL IV ONE (16:37)
[2019-10-24] MEDS ORDERED: PROMETHAZINE HCL INJ 25 MG/1 ML VIAL IV PRN (17:11)
[2019-10-24] MEDS ORDERED: TEMAZEPAM 15 MG CAPSULE PO PRN (17:11)
[2019-10-24] MEDS ORDERED: ACETAMINOPHEN 325 MG TABLET PO PRN (17:11)
[2019-10-24] MEDS ORDERED: IPRATROPIUM/ALBUTEROL 0.5-2.5 MG/3 ML AMPUL NEB PRN (17:11)
[2019-10-24] MEDS ORDERED: ONDANSETRON HCL INJ/PF 4 MG/2 ML SDV IV PRN (17:11)
--- NOTE | 2019-10-24 17:46 | PDOC H&P ---
History of Present Illness Admission Date/PCP: EDNA COLON MD History of Present Illness: SJ REYES is a 59-year-old male with extensive past medical histoyr, per his flowers salesperson note he has coronary artery disease status post CABG in May 2014, ischemic cardiomyopathy, heart failure with reduced ejection fraction, [employer] biventricular ICD, previous CVA, LV thrombus at the time of his CVA not present on follow-up TIA, persistent atrial fibrillation s/p AV sanjuanita ablation at [place] in April 2019, diabetes, hyperlipidemia, and multiple hospitalizations for severe GI bleed and decompensated heart failure who is consulted to cardiology for further recommendations regarding his heart failure. The patient had been doing well 10/24/2019 when he fell backwards injuring his head and back. He sought medical attention in the emergency room where he was found to have an new area of hypoattenuation within the left cerebellar hemisphere therefore he was diagnosed with another stroke. This morning the patient feels well from the cardiovascular standpoint and denies ischemic and heart failure symptoms. Of note, he was admitted to [facility] 10/17/2019 through 10/22/2019 due to orthostatic hypotension, metabolic alkalosis and hyperkalemia. At that time his spironolactone was discontinued and he was only discharged on 20 mg of torsemide after it was held for several days given he is symptomatic hypotension. His echocardiogram on 10/19/2019 demonstrated a severe systolic dysfunction with ejection fraction between 20 to 20%, moderate biatrial enlargement, moderate MR, severe TR, moderate to severe pulmonary hypertension among other findings. Of note, the patient was admitted to the advanced heart failure service at [facility] in March and April 2019. During that e hospitalizations he underwent TIA guided cardioversion and eventually underwent AV node ablation on 04/07/19 and had been paced since then. On 10/24/2007 patient presented to ED brought in by EMS after a fall patient is stating that he fell backwards and hit his head on the toilet, stating that he "dosed off" when he came to he was on the floor, does not recall if he felt dizzy, lightheaded, chest pain, or had any convulsions prior to the fall. In ED CT lumbar spine did not show any acute abnormalities, thoracic spine x-ray no acute abnormalities, chest x-ray acute pleural and parenchymal opacities in the left base, cervical spine x-ray no acute changes, but unfortunately CT head showed new area of hypoattenuation within the left cerebellar hemisphere. On my encounter patient comfortably resting in bed in no apparent distress, alert and oriented x4, denies any shortness of breath, fever, chills, nausea, vomiting, diarrhea, constipation or any urinary symptoms. Patient's flowers salesperson Dr. Colon from [facility] whom I spoke to over the phone and he prefers the patient be transferred to [facility] instead, I brought up the issue with ED physician who talked to Dr. Colon and kindly tried to transfer the patient to [facility] however he was not accepted. Past Medical History Cardiac Medical History: Reports: Atrial Fibrillation, Congestive Heart Failure, Coronary Artery Disease, Myocardial Infarction, Hyperlipidema, Hypertension Neurological Medical History: Denies: Seizures Endocrine Medical History: Reports: Diabetes Mellitus Type 2 Musculoskeltal Medical History: Reports: Gout Psychiatric Medical History: Denies: Depression Past Surgical History Past Surgical History: Reports: Coronary Artery Bypass Graft, Pacemaker - w/ defib Social History Smoking Status: Unknown if Ever Smoked Frequency of Alcohol Use: Occasional Hx Recreational Drug Use: No Drugs: None Hx Prescription Drug Abuse: No Family History Family History: Reviewed & Not Pertinent, Hypertension, Malignancy Parental Family History Reviewed: Yes Children Family History Reviewed: Yes Sibling(s) Family History Reviewed.: Yes Medication/Allergy Home Medications: Allopurinol [Zyloprim 100 mg Tablet] 100 mg PO DAILY 10/24/19 Apixaban [Eliquis 5 mg Tablet] 5 mg PO Q12 10/24/19 Levothyroxine Sodium [Synthroid 0.075 mg Tablet] 0.075 mg PO Q6AM 10/24/19 Magnesium Oxide [Mag-Ox 400 mg Tablet] 800 mg PO DAILY 10/24/19 Metoprolol Succinate [Toprol Xl 25 mg Tab.sr] 12.5 mg PO DAILY 10/24/19 Ondansetron [Zofran Odt 4 mg Tablet (6 Tab/ER Disp)] 4 mg PO Q6HP PRN 10/24/19 Pantoprazole Sodium [Protonix [address] Tablet] 40 mg PO QAM 10/24/19 Allergies/Adverse Reactions: Penicillins Allergy (Verified 09/22/19 10:14) trazodone Allergy (Verified 09/22/19 10:14) zolpidem [From Ambien] Allergy (Verified 12/16/19 10:14) Physical Exam Vital Signs: Temp Pulse Resp BP Pulse Ox 98.0 F 23 H 93/55 L 100 10/24/19 09:01 10/24/19 14:01 10/24/19 14:01 10/24/19 14:01 Intake & Output 10/23/19 10/24/19 10/25/19 06:59 06:59 06:59 Intake Total 1000 Balance 1000 Weight 70.307 kg General appearance: PRESENT: no acute distress, well-developed, well-nourished Head exam: PRESENT: atraumatic, normocephalic Neck exam: ABSENT: carotid bruit, JVD, lymphadenopathy, thyromegaly Respiratory exam: PRESENT: crackles - Bibasilar crackles. ABSENT: rales, rhonchi, wheezes Extremities exam: PRESENT: +2 edema Neurological exam: PRESENT: alert, awake, oriented to person, oriented to place, oriented to time, oriented to situation, CN II-XII grossly intact, motor sensory deficit - Generalized weakness, no focal neurological deficits. [id number] and rapid alternating movement intact. Results Laboratory Results: 10/24/19 08:51 10/24/19 08:51 10/24/19 10/24/19 10/24/19 08:51 08:51 08:51 WBC 5.8 RBC 4.11 L Hgb 10.7 L Hct 32.1 L MCV 78 L MCH 26.0 L MCHC 33.3 RDW 18.9 H Plt Count 220 Seg Neutrophils % 75.0 VBG pH VBG pCO2 VBG HCO3 VBG Base Excess Sodium 129.5 L Potassium 3.2 L Chloride 90 L Carbon Dioxide 31 H Anion Gap 9 BUN 19 Creatinine 0.73 Est GFR ( Amer) > 60 Glucose 108 Lactic Acid Calcium 9.6 Total Bilirubin 1.8 H AST 34 Alkaline Phosphatase 145 H Total Protein 5.8 L Albumin 3.2 L Urine Color STRAW Urine Appearance CLEAR Urine pH 8.0 Ur Specific [place] 1.006 Urine Protein NEGATIVE Urine Glucose (UA) NEGATIVE Urine Ketones NEGATIVE Urine Blood NEGATIVE Urine Nitrite NEGATIVE Ur Leukocyte Esterase NEGATIVE Urine WBC (Auto) 0 10/24/19 10/24/19 10/24/19 11:11 11:11 15:15 WBC RBC Hgb Hct MCV MCH MCHC RDW Plt Count Seg Neutrophils % VBG pH 7.41 VBG pCO2 53.4 VBG HCO3 32.8 H VBG Base Excess 6.7 Sodium Potassium Chloride Carbon Dioxide Anion Gap BUN Creatinine Est GFR ( Amer) Glucose Lactic Acid 1.7 1.5 Calcium Total Bilirubin AST Alkaline Phosphatase Total Protein Albumin Urine Color Urine Appearance Urine pH Ur Specific [place] Urine Protein Urine Glucose (UA) Urine Ketones Urine Blood Urine Nitrite Ur Leukocyte Esterase Urine WBC (Auto) 10/24/19 10/24/19 08:51 08:51 Troponin I 0.028 NT-Pro-B Natriuret Pep 6220 H Impressions: Cervical Spine X-Ray 10/24/19 00:00 IMPRESSION: Degenerative disc disease and spondylosis. No acute finding. Chest X-Ray 10/24/19 00:00 IMPRESSION: Acute pleural and parenchymal opacities in the left base that could represent a combination of pleural fluid, atelectasis, and/or consolidation. Thoracic Spine X-Ray 10/24/19 00:00 IMPRESSION: No acute fracture or malalignment of the thoracic spine. Lumbar Spine CT 10/24/19 10:42 IMPRESSION: No acute fracture or malalignment of the lumbar spine. Head CT 10/24/19 10:43 IMPRESSION: 1. New area of hypoattenuation within the left cerebellar hemisphere (image 12 of series 2). Correlate with MRI to exclude an acute infarct. 2. Chronic areas of encephalomalacia and gliosis in the right frontal and left occipital lobes. Assessment and Plan - Diagnosis (1) CVA (cerebral vascular accident) Qualifiers: CVA mechanism: unspecified Qualified Code(s): I63.9 - Cerebral infarction, unspecified Is this a current diagnosis for this admission?: Yes Plan: History of recurrent CVA likely due to underlying A. fib RVR. Based on CT finding patient has chronic right frontal and left occipital infarcts with acute left cerebellar infarct. Admit to IMCU, neurochecks, fall precautions, seizure precautions, aspiration precautions, PT/OT/ST, antiplatelets, high intensity statins. Unfortunately patient cannot have MRA MRI due to having a pacemaker. (2) NYHA class 3 systolic congestive heart failure with reduced left ventricular function Is this a current diagnosis for this admission?: Yes Plan: Compensated. proBNP 6020 down from 10,300 on 11/16/2017. Troponin 0 0.028. History of severely reduced left ventricular ejection fraction has been evaluated at [place] for possible cardiac transplant. LVAD placed in 2015. Status post CABG in 2015. Cardiac diet, RICA, beta-eric I have talked to Dr. Edna Colon his flowers salesperson who has graciously accepted to see patient tomorrow morning. (3) Hyponatremia Is this a current diagnosis for this admission?: Yes Plan: Likely hypervolemic hyponatremia due to underlying severe CHF. Admit to ICU, seizure precautions, fluid restriction. BMP tomorrow. (4) Coronary artery disease Qualifiers: Coronary Disease-Associated Artery/Lesion type: bypass graft, autologous artery Associated angina: without angina Qualified Code(s): I25.810 - Atherosclerosis of coronary artery bypass graft(s) without angina pectoris Is this a current diagnosis for this admission?: Yes Plan: Denies any anginal symptoms. EKG no acute changes. Troponins in the negative range. Restart CAD meds. Outpatient PCP and cardiology follow-up. (5) Hypotension Is this a current diagnosis for this admission?: Yes (6) Atrial fibrillation Qualifiers: Atrial fibrillation type: longstanding persistent Qualified Code(s): I48.11 - Longstanding persistent atrial fibrillation Is this a current diagnosis for this admission?: Yes Plan: Ventricularly paced rhythm. Admit to telemetry, restart home meds. Consulted cardiology regarding resumption of anticoagulation. (7) Hypokalemia Is this a current diagnosis for this admission?: Yes Plan: Admit to ICU. Hypokalemia protocol.
[2019-10-24] MEDS: OXYCODONE-ACETAMINOPHEN 5-325 MG TABLET PO PRN (21:09)
[2019-10-24] MEDS: ATORVASTATIN CALCIUM 80 MG TABLET PO SCH (21:09)
--- NOTE | 2019-10-24 21:22 | EKG REPORT ---
SEVERITY:- ABNORMAL ECG - AFIB/FLUT AND V-PACED COMPLEXES : Confirmed by: Liya Caldwell MD 24-Oct-2019 21:22:00
[2019-10-25] MEDS: PANTOPRAZOLE SODIUM 40 MG TABLET.DR PO SCH ×2 (05:18→16:59)
[2019-10-25] MEDS: LEVOTHYROXINE SODIUM 0.075 MG TABLET PO SCH (05:18)
[2019-10-25] MEDS ORDERED: HEPARIN SOD (PORCINE) 5,000 UNIT/ML 1 ML VIAL SUBCUT SCH (06:00)
[2019-10-25 06:46] LABS: ABSOLUTE BASOPHILS # (AUTO) 0.1 10^3/uL (0.0-0.2); ABSOLUTE EOSINOPHILS # (AUTO) 0.1 10^3/uL (0.0-0.6); ABSOLUTE LYMPHOCYTES (AUTO) 0.8 10^3/uL (0.5-4.7); ABSOLUTE MONOCYTES (AUTO) 0.7 10^3/uL (0.1-1.4); ABSOLUTE NEUT (AUTO) 4.3 10^3/uL (1.7-8.2); BASOPHILS % (AUTO) 1.4 % (0-2); EOSINOPHILS % (AUTO) 2.3 % (0-6); HEMATOCRIT 31.3 % (37.9-51.0); HEMOGLOBIN 10.4 g/dL (13.5-17.0); LYMPHOCYTES % (AUTO) 13.2 % (13-45); MEAN CORPUSCULAR HEMOGLOBIN 25.9 pg (27.0-33.4); MEAN CORPUSCULAR HGB CONC 33.2 g/dL (32.0-36.0); MEAN CORPUSCULAR VOLUME 78 fl (80-97); MONOCYTES % (AUTO) 11.2 % (3-13); PLATELET COUNT 197 10^3/uL (150-450); RED BLOOD COUNT 4.02 10^6/uL (4.35-5.55); SEGMENTED NEUTROPHILS % (AUTO) 71.9 % (42-78); TOTAL CELLS COUNTED % (AUTO) 100 %
[2019-10-25 06:55] LABS: INTERNATIONAL RATION (INR) 1.21; PROTHROMBIN TIME 15.4 SEC (11.4-15.4)
[2019-10-25 07:07] LABS: CHOLESTEROL 106.49 mg/dL (0-200); TRIGLYCERIDES 68 mg/dL (<150)
[2019-10-25 07:09] LABS: BLOOD UREA NITROGEN 20 mg/dL (7-20); CALCIUM 9.2 mg/dL (8.4-10.2); GLUCOSE 87 mg/dL (75-110)
[2019-10-25 07:10] LABS: ALKALINE PHOSPHATASE 127 U/L (38-126); ANION GAP 10 (5-19); ASPARTATE AMINO TRANSFERASE 30 U/L (17-59); BILIRUBIN,DIRECT 1.2 mg/dL (0.0-0.4); BILIRUBIN,TOTAL 2.2 mg/dL (0.2-1.3); CARBON DIOXIDE 32 mmol/L (22-30); CHLORIDE 91 mmol/L (98-107); POTASSIUM 3.3 mmol/L (3.6-5.0); TOTAL PROTEIN 5.8 g/dL (6.3-8.2)
[2019-10-25 07:18] LABS: DIRECT LDL 83 mg/dL (<100)
[2019-10-25] MEDS ORDERED: POTASSIUM CHLORIDE 10 MEQ TABLET.ER PO ONE (07:33)
[2019-10-25] MEDS: OXYCODONE-ACETAMINOPHEN 5-325 MG TABLET PO PRN ×2 (07:50→21:04)
--- NOTE | 2019-10-25 08:16 | PDOC CONSULTATION ---
Consultation Consult Date: 10/25/19 Attending physician:: MICHELINE PERALTA Provider Consulted: antoinette Consult reason:: Heart failure History of Present Illness Admission Date/PCP: 10/24/19 18:53 EDNA GOMEZ MD History of Present Illness: SJ REYES is a 59-year-old male with coronary artery disease status post CABG in May 2014, ischemic cardiomyopathy, heart failure with reduced ejection fraction, Medtronic biventricular ICD, previous CVA, LV thrombus at the time of his CVA not present on follow-up TIA, persistent atrial fibrillation s/p AV sanjuanita ablation at [facility] in April 2019, diabetes, hyperlipidemia, and multiple hospitalizations for severe GI bleed and decompensated heart failure who is consulted to cardiology for further recommendations regarding his heart failure. The patient had been doing well 10/24/2019 when he fell backwards injuring his head and back. He sought medical attention in the emergency room where he was found to have an new area of hypoattenuation within the left cerebellar hemisphere therefore he was diagnosed with another stroke. This morning the patient feels well from the cardiovascular standpoint and denies ischemic and heart failure symptoms. Of note, he was admitted to [facility] 10/17/2019 through 10/22/2019 due to orthostatic hypotension, metabolic alkalosis and hyperkalemia. At that time his spironolactone was discontinued and he was only discharged on 20 mg of torsemide after it was held for several days given he is symptomatic hypotension. His echocardiogram on 10/19/2019 d emonstrated a severe systolic dysfunction with ejection fraction between 20 to 20%, moderate biatrial enlargement, moderate MR, severe TR, moderate to severe pulmonary hypertension among other findings. Of note, the patient was admitted to the advanced heart failure service at [facility] in March and April 2019. During hospitalizations he underwent TIA guided cardioversion and eventually underwent AV node ablation on 04/07/19 and had been paced since then. He has hyponatremia in the past had been attributed to hypervolemia in have been given tolvaptan intermittently. Past Medical History Cardiac Medical History: Reports: Atrial Fibrillation, Congestive Heart Failure, Coronary Artery Disease, Myocardial Infarction, Hyperlipidema, Hypertension Neurological Medical History: Denies: Seizures Endocrine Medical History: Reports: Diabetes Mellitus Type 2 Musculoskeltal Medical History: Reports: Gout Psychiatric Medical History: Denies: Depression Past Surgical History Past Surgical History: Reports: Coronary Artery Bypass Graft, Pacemaker - w/ defib Social History Lives with: Family Smoking Status: Unknown if Ever Smoked Electronic Cigarette use?: No Last Time Smoked: 20 years ago Frequency of Alcohol Use: Occasional Hx Recreational Drug Use: Yes Drugs: Marijuana Hx Prescription Drug Abuse: No - Advance Directive Resuscitation Status: Full Code Family History Family History: Reviewed & Not Pertinent, Hypertension, Malignancy Parental Family History Reviewed: Yes Children Family History Reviewed: Yes Sibling(s) Family History Reviewed.: Yes Medication/Allergy Home Medications: Allopurinol [Zyloprim 100 mg Tablet] 100 mg PO DAILY 10/24/19 Apixaban [Eliquis 5 mg Tablet] 5 mg PO Q12 10/24/19 Levothyroxine Sodium [Synthroid 0.075 mg Tablet] 0.075 mg PO Q6AM 10/24/19 Magnesium Oxide [Mag-Ox 400 mg Tablet] 800 mg PO DAILY 10/24/19 Metoprolol Succinate [Toprol Xl 25 mg Tab.sr] 12.5 mg PO DAILY 10/24/19 Ondansetron [Zofran Odt 4 mg Tablet (6 Tab/ER Disp)] 4 mg PO Q6HP PRN 10/24/19 Pantoprazole Sodium [Protonix [address] Tablet] 40 mg PO QAM 10/24/19 Allergies/Adverse Reactions: Penicillins Allergy (Verified 09/22/19 10:14) trazodone Allergy (Verified 09/22/19 10:14) zolpidem [From Ambien] Allergy (Verified 09/22/19 10:14) Review of Systems Constitutional: PRESENT: as per HPI Eyes: PRESENT: as per HPI Ears: PRESENT: as per HPI Nose, Mouth, and Throat: PRESENT: as per HPI Cardiovascular: PRESENT: as per HPI Respiratory: PRESENT: as per HPI Gastrointestinal: PRESENT: as per HPI Genitourinary: PRESENT: as per HPI Musculoskeletal: PRESENT: as per HPI Neurological: PRESENT: as per HPI Psychiatric: PRESENT: as per HPI Endocrine: PRESENT: as per HPI Hematologic/Lymphatic: PRESENT: as per HPI Physical Exam Vital Signs: Temp Pulse Resp BP Pulse Ox 97.9 F 82 16 97/63 L 91 L 10/25/19 03:21 10/25/19 03:21 10/25/19 03:21 10/25/19 03:21 10/25/19 03:21 Intake & Output 10/23/19 10/24/19 10/25/19 06:59 06:59 06:59 Intake Total 1460 Output Total 350 Balance 1110 Weight 70.3 kg General appearance: PRESENT: no acute distress, cooperative, disheveled Eye exam: ABSENT: conjunctival injection Respiratory exam: PRESENT: chest wall tenderness, crackles - Crackles present bilaterally from base to mid lung.. ABSENT: accessory muscle use, tachypnea Cardiovascular exam: PRESENT: RRR. ABSENT: diastolic murmur, rubs, systolic murmur GI/Abdominal exam: PRESENT: normal bowel sounds, soft. ABSENT: distended, guarding, mass, organolmegaly, rebound, tenderness Extremities exam: PRESENT: +1 edema - Compression stockings present. Neurological exam: PRESENT: alert, awake, oriented to person, oriented to place, oriented to time, oriented to situation, CN II-XII grossly intact. ABSENT: motor sensory deficit Results Laboratory Results: 10/25/19 06:22 10/24/19 10/24/19 10/24/19 08:51 08:51 08:51 WBC 5.8 RBC 4.11 L Hgb 10.7 L Hct 32.1 L MCV 78 L MCH 26.0 L MCHC 33.3 RDW 18.9 H Plt Count 220 Seg Neutrophils % 75.0 VBG pH VBG pCO2 VBG HCO3 VBG Base Excess Sodium 129.5 L Potassium 3.2 L Chloride 90 L Carbon Dioxide 31 H Anion Gap 9 BUN 19 Creatinine 0.73 Est GFR ( Amer) > 60 Glucose 108 Lactic Acid Calcium 9.6 Total Bilirubin 1.8 H AST 34 Alkaline Phosphatase 145 H Total Protein 5.8 L Albumin 3.2 L Urine Color STRAW Urine Appearance CLEAR Urine pH 8.0 Ur Specific [place] 1.006 Urine Protein NEGATIVE Urine Glucose (UA) NEGATIVE Urine Ketones NEGATIVE Urine Blood NEGATIVE Urine Nitrite NEGATIVE Ur Leukocyte Esterase NEGATIVE Urine WBC (Auto) 0 10/24/19 10/24/19 10/24/19 11:11 11:11 15:15 WBC RBC Hgb Hct MCV MCH MCHC RDW Plt Count Seg Neutrophils % VBG pH 7.41 VBG pCO2 53.4 VBG HCO3 32.8 H VBG Base Excess 6.7 Sodium Potassium Chloride Carbon Dioxide Anion Gap BUN Creatinine Est GFR ( Amer) Glucose Lactic Acid 1.7 1.5 Calcium Total Bilirubin AST Alkaline Phosphatase Total Protein Albumin Urine Color Urine Appearance Urine pH Ur Specific [place] Urine Protein Urine Glucose (UA) Urine Ketones Urine Blood Urine Nitrite Ur Leukocyte Esterase Urine WBC (Auto) 10/25/19 06:22 WBC 6.0 RBC 4.02 L Hgb 10.4 L Hct 31.3 L MCV 78 L MCH 25.9 L MCHC 33.2 RDW 19.0 H Plt Count 197 Seg Neutrophils % 71.9 VBG pH VBG pCO2 VBG HCO3 VBG Base Excess Sodium Potassium Chloride Carbon Dioxide Anion Gap BUN Creatinine Est GFR ( Amer) Glucose Lactic Acid Calcium Total Bilirubin AST Alkaline Phosphatase Total Protein Albumin Urine Color Urine Appearance Urine pH Ur Specific [place] Urine Protein Urine Glucose (UA) Urine Ketones Urine Blood Urine Nitrite Ur Leukocyte Esterase Urine WBC (Auto) 10/24/19 10/24/19 08:51 08:51 Troponin I 0.028 NT-Pro-B Natriuret Pep 6220 H Impressions: Cervical Spine X-Ray 10/24/19 00:00 IMPRESSION: Degenerative disc disease and spondylosis. No acute finding. Chest X-Ray 10/24/19 00:00 IMPRESSION: Acute pleural and parenchymal opacities in the left base that could represent a combination of pleural fluid, atelectasis, and/or consolidation. Thoracic Spine X-Ray 10/24/19 00:00 IMPRESSION: No acute fracture or malalignment of the thoracic spine. Lumbar Spine CT 10/24/19 10:42 IMPRESSION: No acute fracture or malalignment of the lumbar spine. Head CT 10/24/19 10:43 IMPRESSION: 1. New area of hypoattenuation within the left cerebellar hemisphere (image 12 of series 2). Correlate with MRI to exclude an acute infarct. 2. Chronic areas of encephalomalacia and gliosis in the right frontal and left occipital lobes. Assessment & Plan - Diagnosis (1) Cardiomyopathy Qualifiers: Cardiomyopathy type: dilated Qualified Code(s): I42.0 - Dilated cardio myopathy Is this a current diagnosis for this admission?: Yes Plan: Unfortunately the patient's present condition precludes the initiation of GDM T for cardiomyopathy given his hypotension. We will continue with his current medications and will continue to follow-up with you. (2) Hypokalemia Is this a current diagnosis for this admission?: Yes Plan: The patient continues to be mildly hypokalemic. Recommendations: -Start potassium chloride 40 mEq daily. -Continue with daily basic metabolic panels. (3) Coronary artery disease Qualifiers: Coronary Disease-Associated Artery/Lesion type: bypass graft, autologous artery Associated angina: without angina Qualified Code(s): I25.810 - Atherosclerosis of coronary artery bypass graft(s) without angina pectoris Is this a current diagnosis for this admission?: Yes Plan: He has no ischemic symptoms and on appropriate medical therapy given his current condition. We will continue with current management. (4) NYHA class 3 systolic congestive heart failure with reduced left ventricular function Is this a current diagnosis for this admission?: Yes Plan: Unfortunately patient has not been on torsemide as it was discontinued during his most recent hospitalization at [facility] due to hypotension. This morning he does have evidence of fluid overload with lower extremity edema and crackles in the bases all the way up to the midlung bilaterally. He does remain asymptomatic however his fluid balance is at least 1.1 L positive. Recommendations: -Restart torsemide at 20 mg daily. -Limit fluid intake to 1.5 L daily. -Low-sodium diet, less than 1500 mg daily. -Strict intake and output. -Daily weights. -Continue with potassium supplementation. -We will continue to follow-up with you. (5) Atrial fibrillation Qualifiers: Atrial fibrillation type: longstanding persistent Qualified Code(s): I48.11 - Longstanding persistent atrial fibrillation Is this a current diagnosis for this admission?: Yes Plan: The patient underwent TIA guided cardioversion with AV sanjuanita ablation on 04/07/2019 at [facility]. His heart rate is adequate and he is asymptomatic from the atrial fibrillation currently. Recommendations: -Continue with anticoagulation. -Continue with current medical management. - Time Time Spent: 30 to 50 Minutes Medications reviewed and adjusted accordingly: Yes Anticipated discharge: SNF Within: within 72 hours Disposition: Continue hospitalization.
[2019-10-25] MEDS ORDERED: POTASSIUM CHLORIDE 20 MEQ PACKET PO SCH (09:00)
[2019-10-25] MEDS ORDERED: TORSEMIDE 20 MG TABLET PO SCH (10:00)
[2019-10-25] MEDS: ALLOPURINOL 100 MG TABLET PO SCH (10:39)
[2019-10-25] MEDS: METOPROLOL SUCCINATE 25 MG TAB.SR.24H PO SCH (10:39)
[2019-10-25] MEDS: ASPIRIN 325 MG TABLET, ENT COATED PO SCH (10:39)
[2019-10-25] MEDS: MAGNESIUM OXIDE 400 MG TABLET PO SCH (10:39)
[2019-10-25] MEDS: ENOXAPARIN SODIUM INJ 80 MG/0.8 ML DISP.SYRIN SUBCUT SCH ×2 (10:40→21:05)
--- NOTE | 2019-10-25 12:45 | PDOC PROGRESS REPORT ---
Subjective Progress Note for:: 10/25/19 Subjective:: SJ REYES is a 59-year-old male with extensive past medical histoyr, per his ambulance driver note he has coronary artery disease status post CABG in May 2014, ischemic cardiomyopathy, heart failure with reduced ejection fraction, Medtronic biventricular ICD, previous CVA, LV thrombus at the time of his CVA not present on follow-up TIA, persistent atrial fibrillation s/p AV sanjuanita ablation at [place] in April 2019, diabetes, hyperlipidemia, and multiple hospitalizations for severe GI bleed and decompensated heart failure who is consulted to cardiology for further recommendations regarding his heart failure. He was was admitted to [facility] 10/17/2019 through 10/22/2019 due to orthostatic hypotension, metabolic alkalosis and hyperkalemia. At that time his spironolactone was discontinued and he was only discharged on 20 mg of torsemide after it was held for several days given he is symptomatic hypotension. His echocardiogram on 10/19/2019 demonstrated a severe systolic dysfunction with ejection fraction between 20 to 20%, moderate biatrial enlargement, moderate MR, severe TR, moderate to severe pulmonary hypertension among other findings. Patient was admitted to the advanced heart failure service at [facility] in March and April 2019. During th that e hospitalizations he underwent TIA guided cardioversion and eventually underwent AV node ablation on 04/07/19 and had been paced since then. On 10/24/2007 patient presented to ED brought in by EMS after a fall patient is stating that he fell backwards and hit his head on the toilet, stating that he "dosed off" when he came to he was on the floor, does not recall if he felt dizzy, lightheaded, chest pain, or had any convulsions prior to the fall. In ED CT lumbar spine did not show any acute abnormalities, thoracic spine x-ray no acute abnormalities, chest x-ray acute pleural and parenchymal opacities in the left base, cervical spine x-ray no acute changes, but unfortunately CT head showed new area of hypoattenuation within the left cerebellar hemisphere. On my encounter patient comfortably resting in bed in no apparent distress, alert and oriented x4, denies any shortness of breath, fever, chills, nausea, vomiting, diarrhea, constipation or any urinary symptoms. Patient's ambulance driver Dr. Colon from [facility] whom I spoke to over the phone and he prefers the patient be transferred to [facility] instead, I brought up the issue with ED physician who talked to Dr. Colon and kindly tried to transfer the patient to [facility] however he was not accepted. 10/25/2019. No acute events overnight. Patient currently resting in bed no appa rent distress, denies any new focal neurological symptoms, p.o. tolerant, denies any fever, chills, nausea, vomiting, diarrhea, constipation or any urinary symptoms. Patient would like to be transferred to rehab once he is being discharged from here. Reason For Visit: ACUTE CEREBELLAR STROKE,HYPONATREMIA,HYPOKALEMIA, Physical Exam Vital Signs: Temp Pulse Resp BP Pulse Ox 97.2 F 61 16 106/65 97 10/25/19 12:00 10/25/19 11:29 10/25/19 11:29 10/25/19 11:29 10/25/19 11:29 Intake & Output 10/24/19 10/25/19 10/26/19 06:59 06:59 06:59 Intake Total 1460 120 Output Total 350 275 Balance 1110 -155 Weight 70.3 kg General appearance: PRESENT: no acute distress, well-developed, well-nourished Head exam: PRESENT: atraumatic, normocephalic Respiratory exam: PRESENT: crackles - Bibasilar crackles. ABSENT: rales, rhonchi, wheezes Cardiovascular exam: PRESENT: RRR. ABSENT: diastolic murmur, rubs, systolic murmur GI/Abdominal exam: PRESENT: normal bowel sounds, soft. ABSENT: distended, guarding, mass, organolmegaly, rebound, tenderness Extremities exam: PRESENT: +2 edema Neurological exam: PRESENT: alert, awake, oriented to person, oriented to place, oriented to time, oriented to situation, CN II-XII grossly intact, motor sensory deficit - Lateral lower extremity generalized weakness, DTRs 2+ Results Laboratory Results: 10/25/19 06:22 10/25/19 06:22 10/24/19 10/24/19 10/25/19 08:51 15:15 06:22 WBC 6.0 RBC 4.02 L Hgb 10.4 L Hct 31.3 L MCV 78 L MCH 25.9 L MCHC 33.2 RDW 19.0 H Plt Count 197 Seg Neutrophils % 71.9 Sodium Potassium Chloride Carbon Dioxide Anion Gap BUN Creatinine Est GFR ( Amer) Glucose Lactic Acid 1.5 Calcium Magnesium Total Bilirubin AST Alkaline Phosphatase Total Protein Albumin Triglycerides Cholesterol LDL Cholesterol Direct VLDL Cholesterol HDL Cholesterol Urine Color STRAW Urine Appearance CLEAR Urine pH 8.0 Ur Specific [place] 1.006 Urine Protein NEGATIVE Urine Glucose (UA) NEGATIVE Urine Ketones NEGATIVE Urine Blood NEGATIVE Urine Nitrite NEGATIVE Ur Leukocyte Esterase NEGATIVE Urine WBC (Auto) 0 10/25/19 10/25/19 06:22 06:22 WBC RBC Hgb Hct MCV MCH MCHC RDW Plt Count Seg Neutrophils % Sodium 132.9 L Potassium 3.3 L Chloride 91 L Carbon Dioxide 32 H Anion Gap 10 BUN 20 Creatinine 0.75 Est GFR ( Amer) > 60 Glucose 87 Lactic Acid Calcium 9.2 Magnesium 2.0 Total Bilirubin 2.2 H AST 30 Alkaline Phosphatase 127 H Total Protein 5.8 L Albumin 3.0 L Triglycerides 68 Cholesterol 106.49 LDL Cholesterol Direct 83 VLDL Cholesterol 14.0 HDL Cholesterol 25 L Urine Color Urine Appearance Urine pH Ur Specific [place] Urine Protein Urine Glucose (UA) Urine Ketones Urine Blood Urine Nitrite Ur Leukocyte Esterase Urine WBC (Auto) 10/24/19 10/24/19 08:51 08:51 Troponin I 0.028 NT-Pro-B Natriuret Pep 6220 H Impressions: Cervical Spine X-Ray 10/24/19 00:00 IMPRESSION: Degenerative disc disease and spondylosis. No acute finding. Chest X-Ray 10/24/19 00:00 IMPRESSION: Acute pleural and parenchymal opacities in the left base that could represent a combination of pleural fluid, atelectasis, and/or consolidation. Thoracic Spine X-Ray 10/24/19 00:00 IMPRESSION: No acute fracture or malalignment of the thoracic spine. Lumbar Spine CT 10/24/19 10:42 IMPRESSION: No acute fracture or malalignment of the lumbar spine. Head CT 10/24/19 10:43 IMPRESSION: 1. New area of hypoattenuation within the left cerebellar hemisphere (image 12 of series 2). Correlate with MRI to exclude an acute infarct. 2. Chronic areas of encephalomalacia and gliosis in the right frontal and left occipital lobes. Assessment and Plan - Diagnosis (1) CVA (cerebral vascular accident) Qualifiers: CVA mechanism: unspecified Qualified Code(s): I63.9 - Cerebral infarction, unspecified Is this a current diagnosis for this admission?: Yes Plan: History of recurrent CVA likely due to underlying A. fib RVR. Based on CT finding patient has chronic right frontal and left occipital infarcts with acute left cerebellar infarct. Continue telemetry, neurochecks, fall precautions, seizure precautions, aspiration precautions, PT/OT/ST, antiplatelets, high intensity statins. Unfortunately patient cannot have MRA MRI due to having a pacemaker. Discharge planning consulted. Plan will be to transition patient to rehab. (2) NYHA class 3 systolic congestive heart failure with reduced left ventricular function Is this a current diagnosis for this admission?: Yes Plan: Compensated. proBNP 6020 down from 10,300 on 11/16/2017. Troponin 0.028. History of severely reduced left ventricular ejection fraction has been evaluated at [place] for possible cardiac transplant. Cardiac diet, fluid restriction, diuretics, regular diet, daily weights. Cardiology on board. Recommendations noted. (3) Hyponatremia Is this a current diagnosis for this admission?: Yes Plan: Improving. Likely hypervolemic hyponatremia due to underlying severe CHF. Continue telemetry, implement seizure precautions, fluid restriction. BMP tomorrow. (4) Coronary artery disease Qualifiers: Coronary Disease-Associated Artery/Lesion type: bypass graft, autologous artery Associated angina: without angina Qualified Code(s): I25.810 - Atherosclerosis of coronary artery bypass graft(s) without angina pectoris Is this a current diagnosis for this admission?: Yes Plan: Denies any anginal symptoms. EKG no acute changes. Troponins in the negative range. Restart CAD meds. Outpatient PCP and cardiology follow-up. (5) Hypotension Is this a current diagnosis for this admission?: Yes Plan: Still having soft BPs. Maintaining SBP in high 90s. Likely due to severely reduced left ventricular ejection fraction. No sign of SIRS/Sepsis on admission. Restart cardiac meds guided by vitals. (6) Atrial fibrillation Qualifiers: Atrial fibrillation type: longstanding persistent Qualified Code(s): I48.11 - Longstanding persistent atrial fibrillation Is this a current diagnosis for this admission?: Yes Plan: History of chronic persistent atrial fibrillation. Status post TIA and cardioversion with AV sanjuanita ablation on 04/07/2019 at [facility]. Rate controlled. Anticoagulated. Continue beta-blockers. Switch Eliquis with Lovenox due to acute stroke. Bridge back to Eliquis in 24 to 48 hours if neurologically stable. (7) Hypokalemia Is this a current diagnosis for this admission?: Yes
[2019-10-25] MEDS: ATORVASTATIN CALCIUM 80 MG TABLET PO SCH (21:05)
[2019-10-26] MEDS: OXYCODONE-ACETAMINOPHEN 5-325 MG TABLET PO PRN ×2 (05:12→21:24)
[2019-10-26] MEDS: LEVOTHYROXINE SODIUM 0.075 MG TABLET PO SCH (05:12)
[2019-10-26] MEDS: PANTOPRAZOLE SODIUM 40 MG TABLET.DR PO SCH ×2 (05:13→17:42)
[2019-10-26 06:09] LABS: ANION GAP 7 (5-19); BLOOD UREA NITROGEN 19 mg/dL (7-20); CALCIUM 9.7 mg/dL (8.4-10.2); CARBON DIOXIDE 35 mmol/L (22-30); CHLORIDE 90 mmol/L (98-107); GLUCOSE 93 mg/dL (75-110); POTASSIUM 3.2 mmol/L (3.6-5.0)
[2019-10-26] MEDS ORDERED: POTASSIUM CHLORIDE 10 MEQ TABLET.ER PO ONE ×2 (07:02→09:39)
--- NOTE | 2019-10-26 07:27 | PDOC PROGRESS REPORT ---
Subjective Progress Note for:: 10/26/19 Subjective:: The patient is at his baseline and specifically denies STANLEY and PND. Reason For Visit: HEART FAILURE WITH DECREASED EJECTION FRACTION, ATRIAL FIBRILLATION, CORONARY ARTERY DISEASE. Physical Exam Vital Signs: Temp Pulse Resp BP Pulse Ox 97.9 F 59 L 16 94/51 L 97 10/26/19 03:13 10/26/19 04:00 10/26/19 04:00 10/26/19 04:00 10/26/19 04:00 Intake & Output 10/25/19 10/26/19 10/27/19 06:59 06:59 06:59 Intake Total 1460 918 Output Total 350 980 Balance 1110 -62 Weight 70.3 kg 71.7 kg General appearance: PRESENT: no acute distress, disheveled Head exam: PRESENT: atraumatic, normocephalic Neck exam: ABSENT: carotid bruit, JVD, lymphadenopathy, thyromegaly Respiratory exam: PRESENT: chest wall tenderness, crackles - Mild crackles bilaterally at bases.. ABSENT: accessory muscle use Cardiovascular exam: PRESENT: RRR. ABSENT: diastolic murmur, rubs, systolic murmur Extremities exam: PRESENT: +2 edema - 2+ pitting edema bilaterally. Results Laboratory Results: 10/25/19 06:22 10/26/19 05:13 10/25/19 10/25/19 10/26/19 06:22 06:22 05:13 Sodium 132.9 L 132.3 L Potassium 3.3 L 3.2 L Chloride 91 L 90 L Carbon Dioxide 32 H 35 H Anion Gap 10 7 BUN 20 19 Creatinine 0.75 0.75 Est GFR ( Amer) > 60 > 60 Glucose 87 93 Calcium 9.2 9.7 Magnesium 2.0 Total Bilirubin 2.2 H AST 30 Alkaline Phosphatase 127 H Total Protein 5.8 L Albumin 3.0 L Triglycerides 68 Cholesterol 106.49 LDL Cholesterol Direct 83 VLDL Cholesterol 14.0 HDL Cholesterol 25 L 10/24/19 10/24/19 08:51 08:51 Troponin I 0.028 NT-Pro-B Natriuret Pep 6220 H Impressions: Cervical Spine X-Ray 10/24/19 00:00 IMPRESSION: Degenerative disc disease and spondylosis. No acute finding. Chest X-Ray 10/24/19 00:00 IMPRESSION: Acute pleural and parenchymal opacities in the left base that could represent a combination of pleural fluid, atelectasis, and/or consolidation. Thoracic Spine X-Ray 10/24/19 00:00 IMPRESSION: No acute fracture or malalignment of the thoracic spine. Lumbar Spine CT 10/24/19 10:42 IMPRESSION: No acute fracture or malalignment of the lumbar spine. Head CT 10/24/19 10:43 IMPRESSION: 1. New area of hypoattenuation within the left cerebellar hemisp here (image 12 of series 2). Correlate with MRI to exclude an acute infarct. 2. Chronic areas of encephalomalacia and gliosis in the right frontal and left occipital lobes. Status: Imported from PACS Assessment & Plan - Diagnosis (1) Cardiomyopathy Qualifiers: Cardiomyopathy type: dilated Qualified Code(s): I42.0 - Dilated cardiomyopathy Is this a current diagnosis for this admission?: Yes Plan: No ischemic symptoms although the patient continues to be fluid overloaded, please see below for recommendations. (2) Hypokalemia Is this a current diagnosis for this admission?: Yes Plan: The patient continues to be hypokalemic, this is not a new finding as he had been severely hypokalemic in the past in the outpatient setting. I suspect this will worse as we uptitrate his duresis. RECOMMENDATIONS: -Increase potassium chloride to 40 meq bid. -Daily BMP. -Check magnesium. (3) Coronary artery disease Qualifiers: Coronary Disease-Associated Artery/Lesion type: bypass graft, autologous artery Associated angina: without angina Qualified Code(s): I25.810 - Atherosclerosis of coronary artery bypass graft(s) without angina pectoris Is this a current diagnosis for this admission?: Yes Plan: The patient remains free of angina. RECOMMENDATIONS: -Continue with supportive measures. (4) NYHA class 3 systolic congestive heart failure with reduced left ventricular function Is this a current diagnosis for this admission?: Yes Plan: Unfortunately the patient continues to be fluid overloaded. To complicate mat ters, his BP has been on the low side and as low as below 100 mmHg systolic which severely impairs out ability to achieve prompt diuresis. Fortunately enough he has remained hemodynamically stable and without significant symptoms. His most recent BP is adequate therofore we will proceed with 40mg of lasix IV x1 to achieve better diuresis and will continue to provide IV lasix PRN depending on his BP and diuresis. RECOMMENDATIONS: -Increase torsemide to 40mg bid, second dose no later than 1400. -Continue with dialy BMP. -Check Mg and replace if below 2. -Continue with low sodium diet. -Continue to limit fluid intake to less than 1500 ml daily. -Continue with strict intake and output documentation as well as daily weight. -Lasix 40mg IV x1, may repeat if not enough diuresis. (5) Atrial fibrillation Qualifiers: Atrial fibrillation type: longstanding persistent Qualified Code(s): I48.11 - Longstanding persistent atrial fibrillation Is this a current diagnosis for this admission?: Yes Plan: The patient continues to be at baseline. RECOMMENDATIONS: -Continue with supportive measures. -Continue with clinical follow up. - Time Time with patient: 15-25 minutes
[2019-10-26] MEDS: ASPIRIN 325 MG TABLET, ENT COATED PO SCH (09:39)
[2019-10-26] MEDS: METOPROLOL SUCCINATE 25 MG TAB.SR.24H PO SCH (09:41)
[2019-10-26] MEDS: ALLOPURINOL 100 MG TABLET PO SCH (09:42)
[2019-10-26] MEDS: ASPIRIN 81 MG TABLET, CHEWABLE PO SCH (09:42)
[2019-10-26] MEDS: MAGNESIUM OXIDE 400 MG TABLET PO SCH (09:43)
[2019-10-26] MEDS: ENOXAPARIN SODIUM INJ 80 MG/0.8 ML DISP.SYRIN SUBCUT SCH ×2 (09:43→21:25)
[2019-10-26] MEDS ORDERED: POTASSIUM CHLORIDE 20 MEQ PACKET PO SCH (10:00)
[2019-10-26] MEDS ORDERED: TORSEMIDE 20 MG TABLET PO SCH ×2 (10:00→18:00)
--- NOTE | 2019-10-26 10:17 | PDOC PROGRESS REPORT ---
Subjective Progress Note for:: 10/26/19 Subjective:: SJ REYES is a 59-year-old male with extensive past medical histoyr, per his pulmonary physical therapist note he has coronary artery disease status post CABG in May 2014, ischemic cardiomyopathy, heart failure with reduced ejection fraction, [employer] biventricular ICD, previous CVA, LV thrombus at the time of his CVA not present on follow-up TIA, persistent atrial fibrillation s/p AV sanjuanita ablation at [place] in April 2019, diabetes, hyperlipidemia, and multiple hospitalizations for severe GI bleed and decompensated heart failure who is consulted to cardiology for further recommendations regarding his heart failure. He was was admitted to [facility] 10/17/2019 through 10/22/2019 due to orthostatic hypotension, metabolic alkalosis and hyperkalemia. At that time his spironolactone was discontinued and he was only discharged on 20 mg of torsemide after it was held for several days given he is symptomatic hypotension. His echocardiogram on 10/19/2019 demonstrated a severe systolic dysfunction with ejection fraction between 20 to 20%, moderate biatrial enlargement, moderate MR, severe TR, moderate to severe pulmonary hypertension among other findings. Patient was admitted to the advanced heart failure service at [facility] in March and April 2019. During th that e hospitalizations he underwent TIA guided cardioversion and eventually underwent AV node ablation on 04/07/19 and had been paced since then. On 10/24/2007 patient presented to ED brought in by EMS after a fall patient is stating that he fell backwards and hit his head on the toilet, stating that he "dosed off" when he came to he was on the floor, does not recall if he felt dizzy, lightheaded, chest pain, or had any convulsions prior to the fall. In ED CT lumbar spine did not show any acute abnormalities, thoracic spine x-ray no acute abnormalities, chest x-ray acute pleural and parenchymal opacities in the left base, cervical spine x-ray no acute changes, but unfortunately CT head showed new area of hypoattenuation within the left cerebellar hemisphere. On my encounter patient comfortably resting in bed in no apparent distress, alert and oriented x4, denies any shortness of breath, fever, chills, nausea, vomiting, diarrhea, constipation or any urinary symptoms. Patient's pulmonary physical therapist Dr. Colon from [facility] whom I spoke to over the phone and he prefers the patient be transferred to [facility] instead, I brought up the issue with ED physician who talked to Dr. Colon and kindly tried to transfer the patient to [facility] however he was not accepted. 10/25/2019. No acute events overnight. Patient currently resting in bed no appa rent distress, denies any new focal neurological symptoms, p.o. tolerant, denies any fever, chills, nausea, vomiting, diarrhea, constipation or any urinary symptoms. Patient would like to be transferred to rehab once he is being discharged from here. 10/26/2019. No acute events overnight. Saw patient this morning sitting on the edge of his bed, in no apparent distress, complaining of persistent chronic generalized weakness, able to stand up with help and 2 or 3 steps, with no loss of balance, however easily gets tired, patient is p.o. tolerant, having normal bowel and bladder movements, denies any fever, chills, nausea, vomiting, diarrhea, constipation or any urinary symptoms. Pressures are low normal and he still has 2+ pitting edema in the lower extremities and bibasilar crackles. Reason For Visit: ACUTE CEREBELLAR STROKE,HYPONATREMIA,HYPOKALEMIA, Physical Exam Vital Signs: Temp Pulse Resp BP Pulse Ox 97.3 F 68 16 94/51 L 97 10/26/19 08:00 10/26/19 07:00 10/26/19 04:00 10/26/19 04:00 10/26/19 04:00 Intake & Output 10/25/19 10/26/19 10/27/19 06:59 06:59 06:59 Intake Total 1460 918 Output Total 350 980 Balance 1110 -62 Weight 70.3 kg 71.7 kg General appearance: PRESENT: no acute distress, well-developed, well-nourished, other - Generalized weakness Head exam: PRESENT: atraumatic, normocephalic Respiratory exam: PRESENT: crackles - Bibasilar crackles. ABSENT: rales, rhonchi, wheezes Cardiovascular exam: PRESENT: RRR. ABSENT: diastolic murmur, rubs, systolic murmur GI/Abdominal exam: PRESENT: normal bowel sounds, soft. ABSENT: distended, guarding, mass, organolmegaly, rebound, tenderness Extremities exam: PRESENT: +2 edema Neurological exam: PRESENT: alert, awake, oriented to person, oriented to place, oriented to time, oriented to situation, CN II-XII grossly intact, other - Generalized weakness, no focal neurological deficits.. ABSENT: motor sensory deficit Results Laboratory Results: 10/25/19 06:22 10/26/19 05:13 10/26/19 05:13 Sodium 132.3 L Potassium 3.2 L Chloride 90 L Carbon Dioxide 35 H Anion Gap 7 BUN 19 Creatinine 0.75 Est GFR ( Amer) > 60 Glucose 93 Calcium 9.7 10/24/19 10/24/19 08:51 08:51 Troponin I 0.028 NT-Pro-B Natriuret Pep 6220 H Impressions: Cervical Spine X-Ray 10/24/19 00:00 IMPRESSION: Degenerative disc disease and spondylosis. No acute finding. Chest X-Ray 10/24/19 00:00 IMPRESSION: Acute pleural and parenchymal opacities in the left base that could represent a combination of pleural fluid, atelectasis, and/or consolidation. Thoracic Spine X-Ray 10/24/19 00:00 IMPRESSION: No acute fracture or malalignment of the thoracic spine. Lumbar Spine CT 10/24/19 10:42 IMPRESSION: No acute fracture or malalignment of the lumbar spine. Head CT 10/24/19 10:43 IMPRESSION: 1. New area of hypoattenuation within the left cerebellar hemispher e (image 12 of series 2). Correlate with MRI to exclude an acute infarct. 2. Chronic areas of encephalomalacia and gliosis in the right frontal and left occipital lobes. Assessment and Plan - Diagnosis (1) CVA (cerebral vascular accident) Qualifiers: CVA mechanism: unspecified Qualified Code(s): I63.9 - Cerebral infarction, unspecified Is this a current diagnosis for this admission?: Yes Plan: No new focal neurological deficits. [id number] and rapid alternating movement intact. Able to stand up but unable to ambulate due to severe generalized weakness. History of recurrent CVA likely due to underlying A. fib RVR. Based on CT finding patient has chronic right frontal and left occipital infarcts with acute left cerebellar infarct. Continue telemetry, fall precautions, seizure precautions, aspiration precautio ns, PT/OT/ST, antiplatelets, high intensity statins. Unfortunately patient cannot have MRA MRI due to having a pacemaker. Discharge planning consulted for placement. (2) NYHA class 3 systolic congestive heart failure with reduced left ventricular function Is this a current diagnosis for this admission?: Yes Plan: Still volume overloaded. Bibasilar crackles and 2+ pitting edema bilateral lower extremities. proBNP 6020 down from 10,300 on 11/16/2017. Troponin 0.028. History of severely reduced left ventricular ejection fraction has been evaluated at [place] for possible cardiac transplant. Cardiac diet, fluid restriction, diuretics, regular diet, daily weights. Cardiology on board. Recommendations noted. (3) Hyponatremia Is this a current diagnosis for this admission?: Yes Plan: Improving. Likely hypervolemic hyponatremia due to underlying severe CHF. Continue seizure precautions, fluid restriction and treating the underlying CHF. BMP tomorrow. (4) Coronary artery disease Qualifiers: Coronary Disease-Associated Artery/Lesion type: bypass graft, autologous artery Associated angina: without angina Qualified Code(s): I25.810 - Atherosclerosis of coronary artery bypass graft(s) without angina pectoris Is this a current diagnosis for this admission?: Yes Plan: Denies any anginal symptoms. EKG no acute changes. Troponins in the negative range. Restart CAD meds. Outpatient PCP and cardiology follow-up. (5) Hypotension Is this a current diagnosis for this admission?: Yes Plan: Low normal pressures. Likely due to severely reduced left ventricular ejection fraction. No sign of SIRS/Sepsis on admission. Continue cardiac meds guided by vitals. (6) Atrial fibrillation Qualifiers: Atrial fibrillation type: longstanding persistent Qualified Code(s): I48.11 - Longstanding persistent atrial fibrillation Is this a current diagnosis for this admission?: Yes Plan: History of chronic persistent atrial fibrillation. Status post TIA and cardioversion with AV sanjuanita ablation on 04/07/2019 at [facility]. Rate controlled. Anticoagulated. Continue beta-blockers. Switch Eliquis with Lovenox due to acute stroke. Bridge back to Eliquis in 24 to 48 hours if neurologically stable. (7) Hypokalemia Is this a current diagnosis for this admission?: Yes Plan: Resolved. Continue supplemental potassium. BMP tomorrow. (8) Debility Is this a current diagnosis for this admission?: Yes Plan: Patient has severe debility due to multiple complicated comorbidities. Patient unable to ambulate on his own, has to stay in bed most of the time, has had recurrent falls. Patient will benefit from long-term placement. Continue PT OT. Discharge planning consulted for possible placement.
[2019-10-26] MEDS: POTASSIUM CHLORIDE 10 MEQ TABLET.ER PO SCH ×2 (12:15→21:24)
[2019-10-26] MEDS ORDERED: FUROSEMIDE INJ/PF 40 MG/4 ML SDV IV SCH (13:30)
[2019-10-26] MEDS: TORSEMIDE 20 MG TABLET PO SCH (13:51)
[2019-10-26] MEDS: ATORVASTATIN CALCIUM 80 MG TABLET PO SCH (21:24)
[2019-10-27] MEDS: LEVOTHYROXINE SODIUM 0.075 MG TABLET PO SCH (05:29)
[2019-10-27] MEDS: PANTOPRAZOLE SODIUM 40 MG TABLET.DR PO SCH ×2 (05:29→17:20)
[2019-10-27] MEDS: OXYCODONE-ACETAMINOPHEN 5-325 MG TABLET PO PRN ×2 (05:32→20:01)
[2019-10-27 05:42] LABS: HEMATOCRIT 30.7 % (37.9-51.0); HEMOGLOBIN 10.1 g/dL (13.5-17.0); MEAN CORPUSCULAR HEMOGLOBIN 25.7 pg (27.0-33.4); MEAN CORPUSCULAR HGB CONC 32.9 g/dL (32.0-36.0); MEAN CORPUSCULAR VOLUME 78 fl (80-97); PLATELET COUNT 204 10^3/uL (150-450); RED BLOOD COUNT 3.93 10^6/uL (4.35-5.55); RED CELL DISTRIBUTION WIDTH 18.7 % (11.5-14.0); WHITE BLOOD COUNT 6.7 10^3/uL (4.0-10.5)
[2019-10-27 06:07] LABS: ANION GAP 9 (5-19); BLOOD UREA NITROGEN 18 mg/dL (7-20); CALCIUM 9.2 mg/dL (8.4-10.2); CARBON DIOXIDE 35 mmol/L (22-30); CHLORIDE 88 mmol/L (98-107); GLUCOSE 76 mg/dL (75-110); POTASSIUM 3.3 mmol/L (3.6-5.0)
[2019-10-27 07:02] LABS: APPEARANCE,URINE CLEAR; BILIRUBIN,URINE NEGATIVE (NEGATIVE); COLOR,URINE YELLOW; GLUCOSE, URINE NEGATIVE (NEGATIVE); KETONES,URINE NEGATIVE (NEGATIVE); LEUKOCYTE ESTERASE,URINE NEGATIVE (NEGATIVE); NITRITE,URINE NEGATIVE (NEGATIVE); PROTEIN,URINE NEGATIVE (NEGATIVE); URINE SPECIFIC GRAVITY 1.006; UROBILINOGEN,URINE NEGATIVE mg/dL (<2.0)
[2019-10-27] MEDS ORDERED: POTASSIUM CHLORIDE 10 MEQ TABLET.ER PO ONE (08:30)
[2019-10-27] MEDS: TORSEMIDE 20 MG TABLET PO SCH ×3 (09:00→20:01)
[2019-10-27] MEDS: METOPROLOL SUCCINATE 25 MG TAB.SR.24H PO SCH (10:13)
[2019-10-27] MEDS: POTASSIUM CHLORIDE 10 MEQ TABLET.ER PO SCH ×2 (10:13→22:31)
[2019-10-27] MEDS: MAGNESIUM OXIDE 400 MG TABLET PO SCH ×2 (10:13→17:20)
[2019-10-27] MEDS: ALLOPURINOL 100 MG TABLET PO SCH (10:13)
[2019-10-27] MEDS: ENOXAPARIN SODIUM INJ 80 MG/0.8 ML DISP.SYRIN SUBCUT SCH (10:14)
[2019-10-27] MEDS: ASPIRIN 81 MG TABLET, CHEWABLE PO SCH (10:14)
--- NOTE | 2019-10-27 11:06 | PDOC PROGRESS REPORT ---
Subjective Progress Note for:: 10/27/19 Subjective:: Pt is sitting up in bed this morning without complaints. Notes L upper extremity weakness. Mentions that he is going to be placed as he is unable to continue by himself at home. Endorses good urinary output. Denies chest pain, palpitations, presyncope, dyspnea. Reason For Visit: ACUTE CEREBELLAR STROKE,HYPONATREMIA,HYPOKALEMIA, Physical Exam Vital Signs: Temp Pulse Resp BP Pulse Ox 97.9 F 66 16 108/58 L 100 10/27/19 07:24 10/27/19 07:24 10/27/19 07:24 10/27/19 07:24 10/27/19 07:24 Intake & Output 10/26/19 10/27/19 10/28/19 06:59 06:59 06:59 Intake Total 918 1243 Output Total 980 2825 Balance -62 -1582 Weight 71.7 kg 68.7 kg General appearance: PRESENT: no acute distress, thin Head exam: PRESENT: atraumatic - minor abrasion present, normocephalic Eye exam: PRESENT: EOMI, PERRLA Mouth exam: PRESENT: dry mucosa Neck exam: PRESENT: JVD - 8cm. ABSENT: carotid bruit, lymphadenopathy Respiratory exam: PRESENT: clear to auscultation [place] - bilateral diminshed bases. ABSENT: rales, rhonchi, wheezes Cardiovascular exam: PRESENT: irregular rhythm, systolic murmur - 3/6 bh llsb Pulses: PRESENT: normal carotid pulses, normal radial pulses Vascular exam: PRESENT: normal capillary refill GI/Abdominal exam: PRESENT: normal bowel sounds, soft. ABSENT: distended, guarding, mass, organolmegaly, rebound, tenderness Extremities exam: PRESENT: +1 edema - 1-2+ pretibial edema R>L Musculoskeletal exam: PRESENT: full ROM, normal inspection Neurological exam: PRESENT: alert, altered, awake, oriented to person, oriented to place, oriented to time Psychiatric exam: PRESENT: flat affect Skin exam: PRESENT: abrasion - central top of head Results Laboratory Results: 10/27/19 04:11 10/27/19 04:11 10/27/19 10/27/19 10/27/19 01:21 04:11 04:11 WBC 6.7 RBC 3.93 L Hgb 10.1 L Hct 30.7 L MCV 78 L MCH 25.7 L MCHC 32.9 RDW 18.7 H Plt Count 204 Sodium 132.3 L Potassium 3.3 L Chloride 88 L Carbon Dioxide 35 H Anion Gap 9 BUN 18 Creatinine 0.72 Est GFR ( Amer) > 60 Glucose 76 Calcium 9.2 Magnesium 1.6 Urine Color YELLOW Urine Appearance CLEAR Urine pH 8.0 Ur Specific [place] 1.006 Urine Protein NEGATIVE Urine Glucose (UA) NEGATIVE Urine Ketones NEGATIVE Urine Blood NEGATIVE Urine Nitrite NEGATIVE Ur Leukocyte Esterase NEGATIVE Urine WBC (Auto) 0 10/24/19 10/24/19 08:51 08:51 Troponin I 0.028 NT-Pro-B Natriuret Pep 6220 H ACTIVE MEDICATIONS Generic Name Dose Route Start Last Admin Trade Name Freq PRN Reason Stop Dose Admin Acetaminophen 650 mg 10/24/19 17:11 Tylenol 325 Mg Tablet PO 11/23/19 17:10 Q4HP PRN FEVER >101 Albuterol/Ipratropium 3 ml 10/24/19 17:11 Duoneb 3 Ml Ampul NEB 11/23/19 17:10 RTQ6HP PRN SHORTNESS OF BREATH Allopurinol 100 mg 10/25/19 10:00 10/27/19 10:13 Zyloprim 100 Mg Tablet PO 11/24/19 09:59 100 mg DAILY HAI Administration Aspirin 81 mg 10/26/19 10:00 10/27/19 10:14 Aspirin 81 Mg Chewable Tablet PO 11/25/19 09:59 81 mg DAILY HAI Administration Atorvastatin Calcium 80 mg 10/24/19 22:00 10/26/19 21:24 Lipitor 80 Mg Tablet PO 11/23/19 21:59 80 mg QHS HAI Administration Enoxaparin Sodium 70 mg 10/25/19 10:00 10/27/19 10:14 Lovenox Inj 80 Mg/0.8 Ml Disp.Syrin SUBCUT 11/24/19 09:59 70 mg Q12 HAI Administration Levothyroxine Sodium 0.075 mg 10/25/19 06:00 10/27/19 05:29 Synthroid 0.075 Mg Tablet PO 11/24/19 05:59 0.075 mg Q6AM HAI Administration Magnesium Oxide 800 mg 10/25/19 10:00 10/27/19 10:13 Mag-Ox 400 Mg Tablet PO 11/24/19 09:59 800 mg DAILY HAI Administration Metoprolol Succinate 12.5 mg 10/25/19 10:00 10/27/19 10:13 Toprol Xl 25 Mg Tab.Sr PO 11/24/19 09:59 12.5 mg DAILY HAI Administration Ondansetron HCl 4 mg 10/24/19 17:11 Zofran Inj/Pf 4 Mg/2 Ml Sdv IV 11/23/19 17:10 Q4HP PRN FOR NAUSEA/VOMITING Oxycodone/Acetaminophen 1 tab 10/24/19 17:11 10/27/19 05:32 Percocet 5-325 Mg Tablet PO 10/31/19 17:10 1 tab Q4HP PRN Administration FOR PAIN SCALE 3-5 Pantoprazole Sodium 40 mg 10/25/19 06:00 10/27/19 05:[address] Tablet PO 11/24/19 05:59 40 mg BID@0600,1700 HAI Administration Potassium Chloride 40 meq 10/26/19 11:00 10/27/19 10:13 Klor-Con 10 Meq Tablet Er PO 11/25/19 10:59 40 meq Q12 HAI Administration Promethazine HCl 6.25 mg 10/24/19 17:11 Phenergan Inj 25 Mg/1 Ml Vial IV 11/23/19 17:10 Q4HP PRN FOR NAUSEA/VOMITING Temazepam 15 mg 10/24/19 17:11 Restoril 15 Mg Capsule PO 10/31/19 17:10 HSP PRN SLEEP OR INSOMNIA Torsemide 40 mg 10/26/19 14:00 10/27/19 09:00 Demadex 20 Mg Tablet PO 11/25/19 13:59 40 mg BID@0800,1400 HAI Administration 10/27/19 10:00 URINALYSIS [URIN] URINALYSIS [URIN] Impressions: Cervical Spine X-Ray 10/24/19 00:00 IMPRESSION: Degenerative disc disease and spondylosis. No acute finding. Chest X-Ray 10/24/19 00:00 IMPRESSION: Acute pleural and parenchymal opacities in the left base that could represent a combination of pleural fluid, atelectasis, and/or consolidation. Thoracic Spine X-Ray 10/24/19 00:00 IMPRESSION: No acute fracture or malalignment of the thoracic spine. Lumbar Spine CT 10/24/19 10:42 IMPRESSION: No acute fracture or malalignment of the lumbar spine. Head CT 10/24/19 10:43 IMPRESSION: 1. New area of hypoattenuation within the left cerebellar hemisphere (image 12 of series 2). Correlate with MRI to exclude an acute infarct. 2. Chronic areas of encephalomalacia and gliosis in the right frontal and left occipital lobes. Assessment & Plan - Diagnosis (1) CVA (cerebral vascular accident) Qualifiers: CVA mechanism: unspecified Qualified Code(s): I63.9 - Cerebral infarction, unspecified Is this a current diagnosis for this admission?: Yes Plan: management per primary team (2) NYHA class 3 systolic congestive heart failure with reduced left ventricular function Is this a current diagnosis for this admission?: Yes Plan: Good uop and down 3kg today. Bp improved. - continue po torsemide - agree with increase in oral KCl replcement - consider IV mag replacement - consider adding back his aldactone at 12.5mg daily (was taking previously as an outpatient but was stopped per our conversation due to hyperkalemia) - consider adding back lowest dose of his home lolis-i/arb as bp tolerates (I will review his outpatient documentation to establish most current cardiac regimen prior to admission) - continue his other guideline directed therpay as tolerated per his home regimen - continue strict i/o's, Na restricted diet, daily standing (if possible) weights (3) Cardiomyopathy Qualifiers: Cardiomyopathy type: dilated Qualified Code(s): I42.0 - Dilated cardiomyopathy Is this a current diagnosis for this admission?: Yes Plan: Denies angina at this time. Tele v-paced, no signficant arrhythmias noted. - plan per above (4) Hypomagnesemia Is this a current diagnosis for this admission?: Yes Plan: consider IV mag replacement to help with K retention. - please f/u bmp tomorrow (5) Hypokalemia Is this a current diagnosis for this admission?: Yes Plan: - agree with replacement that has been increased - consider adding back aldactone 12.5mg daily as bp tolerates and monitoring bmp (6) Atrial fibrillation Qualifiers: Atrial fibrillation type: longstanding persistent Qualified Code(s): I48.11 - Longstanding persistent atrial fibrillation Is this a current diagnosis for this admission?: Yes Plan: - conintue current a/c and bb (7) Coronary artery disease Qualifiers: Coronary Disease-Associated Artery/Lesion type: bypass graft, autologous artery Associated angina: without angina Qualified Code(s): I25.810 - Atherosclerosis of coronary artery bypass graft(s) without angina pectoris Is this a current diagnosis for this admission?: Yes Plan: No active ischemia noted this admission - continue his current medical regimen.
--- NOTE | 2019-10-27 13:01 | PDOC PROGRESS REPORT ---
Subjective Progress Note for:: 10/27/19 Subjective:: SJ REYES is a 59-year-old male with extensive past medical histoyr, per his transcription manager note he has coronary artery disease status post CABG in May 2014, ischemic cardiomyopathy, heart failure with reduced ejection fraction, [employer] biventricular ICD, previous CVA, LV thrombus at the time of his CVA not present on follow-up TIA, persistent atrial fibrillation s/p AV sanjuanita ablation at [facility] in April 2019, diabetes, hyperlipidemia, and multiple hospitalizations for severe GI bleed and decompensated heart failure who is consulted to cardiology for further recommendations regarding his heart failure. He was was admitted to [facility] 10/17/2019 through 10/22/2019 due to orthostatic hypotension, metabolic alkalosis and hyperkalemia. At that time his spironolactone was discontinued and he was only discharged on 20 mg of torsemide after it was held for several days given he is symptomatic hypotension. His echocardiogram on 10/19/2019 demonstrated a severe systolic dysfunction with ejection fraction between 20 to 20%, moderate biatrial enlargement, moderate MR, severe TR, moderate to severe pulmonary hypertension among other findings. Patient was admitted to the advanced heart failure service at [facility] in March and April 2019. During th that e hospitalizations he underwent TIA guided cardioversion and eventually underwent AV node ablation on 04/07/19 and had been paced since then. On 10/24/2007 patient presented to ED brought in by EMS after a fall patient is stating that he fell backwards and hit his head on the toilet, stating that he "dosed off" when he came to he was on the floor, does not recall if he felt dizzy, lightheaded, chest pain, or had any convulsions prior to the fall. In ED CT lumbar spine did not show any acute abnormalities, thoracic spine x-ray no acute abnormalities, chest x-ray acute pleural and parenchymal opacities in the left base, cervical spine x-ray no acute changes, but unfortunately CT head showed new area of hypoattenuation within the left cerebellar hemisphere. On my encounter patient comfortably resting in bed in no apparent distress, alert and oriented x4, denies any shortness of breath, fever, chills, nausea, vomiting, diarrhea, constipation or any urinary symptoms. Patient's transcription manager Dr. Colon from [facility] whom I spoke to over the phone and he prefers the patient be transferred to [facility] instead, I brought up the issue with ED physician who talked to Dr. Colon and kindly tried to transfer the patient to [facility] however he was not accepted. 10/25/2019. No acute events overnight. Patient currently resting in bed no appa rent distress, denies any new focal neurological symptoms, p.o. tolerant, denies any fever, chills, nausea, vomiting, diarrhea, constipation or any urinary symptoms. Patient would like to be transferred to rehab once he is being discharged from here. 10/26/2019. No acute events overnight. Patient currently resting in bed no apparent distress, denies any new focal neurological symptoms. Patient would like to be transferred to rehab once he is being discharged from here. 10/27/2019. No acute events overnight. Denies any new focal neurological symptoms, resting comfortably in bed in no apparent distress, denies any anginal symptoms, lower extremity edema improving. Denies any fever, chills, nausea, vomiting, diarrhea, constipation or any urinary symptoms. Patient is pending placement to rehab. Reason For Visit: ACUTE CEREBELLAR STROKE,HYPONATREMIA,HYPOKALEMIA, Physical Exam Vital Signs: Temp Pulse Resp BP Pulse Ox 97.7 F 56 L 16 94/54 L 93 10/27/19 11:11 10/27/19 11:11 10/27/19 11:11 10/27/19 11:11 10/27/19 11:11 Intake & Output 10/26/19 10/27/19 10/28/19 06:59 06:59 06:59 Intake Total 918 1243 Output Total 957 0955 Balance -62 -1582 Weight 71.7 kg 68.7 kg General appearance: PRESENT: no acute distress, well-developed, well-nourished Head exam: PRESENT: atraumatic, normocephalic Respiratory exam: PRESENT: decreased breath sounds - Bibasilar crackles. ABSENT: rales, rhonchi, wheezes GI/Abdominal exam: PRESENT: normal bowel sounds, soft. ABSENT: distended, guarding, mass, organolmegaly, rebound, tenderness Neurological exam: PRESENT: alert, awake, oriented to person, oriented to place, oriented to time, oriented to situation, CN II-XII grossly intact, motor sensory deficit - Generalized weakness. Results Laboratory Results: 10/27/19 04:11 10/27/19 04:11 10/27/19 10/27/19 10/27/19 01:21 04:11 04:11 WBC 6.7 RBC 3.93 L Hgb 10.1 L Hct 30.7 L MCV 78 L MCH 25.7 L MCHC 32.9 RDW 18.7 H Plt Count 204 Sodium 132.3 L Potassium 3.3 L Chloride 88 L Carbon Dioxide 35 H Anion Gap 9 BUN 18 Creatinine 0.72 Est GFR ( Amer) > 60 Glucose 76 Calcium 9.2 Magnesium 1.6 Urine Color YELLOW Urine Appearance CLEAR Urine pH 8.0 Ur Specific [place] 1.006 Urine Protein NEGATIVE Urine Glucose (UA) NEGATIVE Urine Ketones NEGATIVE Urine Blood NEGATIVE Urine Nitrite NEGATIVE Ur Leukocyte Esterase NEGATIVE Urine WBC (Auto) 0 10/24/19 10/24/19 08:51 08:51 Troponin I 0.028 NT-Pro-B Natriuret Pep 6220 H Impressions: Cervical Spine X-Ray 10/24/19 00:00 IMPRESSION: Degenerative disc disease and spondylosis. No acute finding. Chest X-Ray 10/24/19 00:00 IMPRESSION: Acute pleural and parenchymal opacities in the left base that could represent a combination of pleural fluid, atelectasis, and/or consolidation. Thoracic Spine X-Ray 10/24/19 00:00 IMPRESSION: No acute fracture or malalignment of the thoracic spine. Lumbar Spine CT 10/24/19 10:42 IMPRESSION: No acute fracture or malalignment of the lumbar spine. Head CT 10/24/19 10:43 IMPRESSION: 1. New area of hypoattenuation within the left cerebellar hemisphere (image 12 of series 2). Correlate with MRI to exclude an acute infarct. 2. Chronic areas of encephalomalacia and gliosis in the right frontal and left occipital lobes. Assessment and Plan - Diagnosis (1) CVA (cerebral vascular accident) Qualifiers: CVA mechanism: unspecified Qualified Code(s): I63.9 - Cerebral infarction, unspecified Is this a current diagnosis for this admission?: Yes Plan: History of recurrent CVA likely due to underlying A. fib RVR. Based on CT finding patient has chronic right frontal and left occipital infarcts with acute left cerebellar infarct. Unfortunately patient cannot have MRA MRI due to having a pacemaker. Denies any new focal neurological symptoms. Continue telemetry, neurochecks, fall precautions, seizure precautions, aspiration precautions, PT/OT/ST, antiplatelets, high intensity statins. Discharge planning consulted. Plan will be to transition patient to rehab. (2) NYHA class 3 systolic congestive heart failure with reduced left ventricular function Is this a current diagnosis for this admission?: Yes Plan: Improving. Negative water balance. Weight down by 3 kg since admission. Still having 1+ bilateral lower extremity pitting edema. proBNP 6020 down from 10,300 on 11/16/2017. Troponin 0.028 on admission. History of severely reduced left ventricular ejection fraction has been evaluated at [facility] for possible cardiac transplant. Continue low-dose beta-eric, uptitrate as tolerated. We will consider adding RICA inhibitors and uptitrate as tolerated if BPs allow. Added Aldactone 12.5 mg p.o. twice daily daily. Continue cardiac diet, fluid restriction, diuretics, regular diet, daily weights. Cardiology on board. Recommendations noted. (3) Hyponatremia Is this a current diagnosis for this admission?: Yes Plan: Improving. Likely hypervolemic hyponatremia due to underlying severe CHF. Continue telemetry, implement seizure precautions, fluid restriction. BMP tomorrow. (4) Coronary artery disease Qualifiers: Coronary Disease-Associated Artery/Lesion type: bypass graft, autologous artery Associated angina: without angina Qualified Code(s): I25.810 - Atherosclerosis of coronary artery bypass graft(s) without angina pectoris Is this a current diagnosis for this admission?: Yes Plan: Denies any anginal symptoms. EKG no acute changes. Troponins in the negative range. Restart CAD meds. Outpatient PCP and cardiology follow-up. (5) Hypotension Is this a current diagnosis for this admission?: Yes Plan: Still having soft BPs. Maintaining SBP in high 90s. Likely due to severely reduced left ventricular ejection fraction. No sign of SIRS/Sepsis on admission. Restart cardiac meds guided by vitals. (6) Atrial fibrillation Qualifiers: Atrial fibrillation type: longstanding persistent Qualified Code(s): I48.11 - Longstanding persistent atrial fibrillation Is this a current diagnosis for this admission?: Yes Plan: History of chronic persistent atrial fibrillation. Status post TIA and cardioversion with AV sanjuanita ablation on 04/07/2019 at [facility]. Rate controlled. Anticoagulated. Continue beta-blockers. DC therapeutic Lovenox. Restart Eliquis. Fall precautions. Monitor for bleeding. (7) Hypokalemia Is this a current diagnosis for this admission?: Yes Plan: Improving. Continue daily potassium supplement and magnesium. Added Aldactone 12.5 mg p.o. daily. BMP tomorrow.
[2019-10-27] MEDS ORDERED: PROMETHAZINE HCL INJ 25 MG/1 ML VIAL IV PRN (15:00)
[2019-10-27] MEDS ORDERED: ONDANSETRON HCL INJ/PF 4 MG/2 ML SDV IV PRN (15:00)
[2019-10-27] MEDS: APIXABAN 5 MG TABLET PO SCH (17:20)
[2019-10-27] MEDS ORDERED: POTASSIUM CHLORIDE 10 MEQ TABLET.ER PO SCH (22:00)
[2019-10-27] MEDS: ATORVASTATIN CALCIUM 80 MG TABLET PO SCH (22:31)
[2019-10-28 05:03] LABS: HEMOGLOBIN 10.5 g/dL (13.5-17.0); MEAN CORPUSCULAR HEMOGLOBIN 26.3 pg (27.0-33.4); MEAN CORPUSCULAR HGB CONC 33.9 g/dL (32.0-36.0); MEAN CORPUSCULAR VOLUME 78 fl (80-97); PLATELET COUNT 197 10^3/uL (150-450); RED CELL DISTRIBUTION WIDTH 18.9 % (11.5-14.0); WHITE BLOOD COUNT 5.2 10^3/uL (4.0-10.5)
[2019-10-28 05:29] LABS: ANION GAP 10 (5-19); BLOOD UREA NITROGEN 19 mg/dL (7-20); CALCIUM 9.5 mg/dL (8.4-10.2); CARBON DIOXIDE 35 mmol/L (22-30); CHLORIDE 88 mmol/L (98-107); GLUCOSE 82 mg/dL (75-110); POTASSIUM 4.2 mmol/L (3.6-5.0)
[2019-10-28] MEDS: LEVOTHYROXINE SODIUM 0.075 MG TABLET PO SCH (05:34)
[2019-10-28] MEDS: PANTOPRAZOLE SODIUM 40 MG TABLET.DR PO SCH (05:34)
--- NOTE | 2019-10-28 09:16 | PDOC PROGRESS REPORT ---
Subjective Progress Note for:: 10/28/19 Subjective:: Pt sitting on the side of the bed this am and speaking with speech therapy. Fatigued but otherwise no specific complaints. Denies chest pain, palpitations, presyncope. Reason For Visit: ACUTE CEREBELLAR STROKE,HYPONATREMIA,HYPOKALEMIA, Physical Exam Vital Signs: Temp Pulse Resp BP Pulse Ox 97.4 F 61 17 102/59 L 96 10/28/19 07:36 10/28/19 07:36 10/28/19 07:36 10/28/19 07:36 10/28/19 07:36 Intake & Output 10/27/19 10/28/19 10/29/19 06:59 06:59 06:59 Intake Total 1243 1160 Output Total 2825 1950 Balance -1582 -790 Weight 68.7 kg 68 kg Repeat vitals this am 99/57 bed weight 67.8kg General appearance: PRESENT: no acute distress, thin Head exam: PRESENT: atraumatic, normocephalic Eye exam: PRESENT: conjunctiva pink, EOMI, PERRLA. ABSENT: scleral icterus Mouth exam: PRESENT: dry mucosa, neck supple Neck exam: PRESENT: JVD, thyromegaly - 7cm. ABSENT: carotid bruit, lymphadenopathy Respiratory exam: PRESENT: clear to auscultation [place]. ABSENT: rales, rhonchi, wheezes Cardiovascular exam: PRESENT: RRR, systolic murmur - 3/6 bh llsb Pulses: PRESENT: normal carotid pulses, normal radial pulses Vascular exam: PRESENT: other - delayed cap refill fingertips GI/Abdominal exam: PRESENT: normal bowel sounds, soft. ABSENT: distended, guarding, mass, organolmegaly, rebound, tenderness Extremities exam: PRESENT: +1 edema - pretibial, bilateral Musculoskeletal exam: PRESENT: full ROM Neurological exam: PRESENT: alert, altered, awake, oriented to person, oriented to place, oriented to time Psychiatric exam: PRESENT: flat affect Skin exam: PRESENT: dry Results Laboratory Results: 10/28/19 04:18 10/28/19 04:18 10/28/19 10/28/19 04:18 04:18 WBC 5.2 RBC 4.00 L Hgb 10.5 L Hct 31.0 L MCV 78 L MCH 26.3 L MCHC 33.9 RDW 18.9 H Plt Count 197 Sodium 133.0 L Potassium 4.2 Chloride 88 L Carbon Dioxide 35 H Anion Gap 10 BUN 19 Creatinine 0.77 Est GFR ( Amer) > 60 Glucose 82 Calcium 9.5 Magnesium 1.7 10/24/19 10/24/19 08:51 08:51 Troponin I 0.028 NT-Pro-B Natriuret Pep 6220 H Current Medications Generic Name Dose Route Start Last Admin Trade Name Freq PRN Reason Stop Dose Admin Acetaminophen 650 mg 10/24/19 17:11 Tylenol 325 Mg Tablet PO 11/23/19 17:10 Q4HP PRN FEVER >101 Albuterol/Ipratropium 3 ml 10/24/19 17:11 Duoneb 3 Ml Ampul NEB 11/23/19 17:10 RTQ6HP PRN SHORTNESS OF BREATH Allopurinol 100 mg 10/25/19 10:00 10/27/19 10:13 Zyloprim 100 Mg Tablet PO 11/24/19 09:59 100 mg DAILY AHI Administration Apixaban 5 mg 10/27/19 18:00 10/27/19 17:20 Eliquis 5 Mg Tablet PO 11/26/19 17:59 5 mg BID HAI Administration Aspirin 81 mg 10/26/19 10:00 10/27/19 10:14 Aspirin 81 Mg Chewable Tablet PO 11/25/19 09:59 81 mg DAILY HAI Administration Atorvastatin Calcium 80 mg 10/24/19 22:00 10/27/19 22:31 Lipitor 80 Mg Tablet PO 11/23/19 21:59 80 mg QHS HAI Administration Levothyroxine Sodium 0.075 mg 10/25/19 06:00 10/28/19 05:34 Synthroid 0.075 Mg Tablet PO 11/24/19 05:59 0.075 mg Q6AM HAI Administration Magnesium Oxide 800 mg 10/27/19 18:00 10/27/19 17:20 Mag-Ox 400 Mg Tablet PO 11/26/19 17:59 800 mg BID HAI Administration Metoprolol Succinate 12.5 mg 10/25/19 10:00 10/27/19 10:13 Toprol Xl 25 Mg Tab.Sr PO 11/24/19 09:59 12.5 mg DAILY HAI Administration Ondansetron HCl 4 mg 10/27/19 15:00 Zofran Inj/Pf 4 Mg/2 Ml Sdv IV 02/16/20 17:10 Q4HP PRN FOR NAUSEA/VOMITING Oxycodone/Acetaminophen 1 tab 10/24/19 17:11 10/27/19 20:01 Percocet 5-325 Mg Tablet PO 10/31/19 17:10 1 tab Q4HP PRN Administration FOR PAIN SCALE 3-5 Pantoprazole Sodium 40 mg 10/25/19 06:00 10/28/19 05:[address] Tablet PO 11/24/19 05:59 40 mg BID@0600,1700 HAI Administration Potassium Chloride 40 meq 10/27/19 22:00 10/27/19 22:31 Klor-Con 10 Meq Tablet Er PO 11/26/19 21:59 40 meq Q12 HAI Administration Promethazine HCl 6.25 mg 10/27/19 15:00 Phenergan Inj 25 Mg/1 Ml Vial IV 11/23/19 17:10 Q4HP PRN FOR UNRESOLVED NAUSEA/VOMITING Spironolactone 12.5 mg 10/28/19 10:00 Aldactone 25 Mg Tablet PO 11/27/19 09:59 DAILY HAI Temazepam 15 mg 10/24/19 17:11 Restoril 15 Mg Capsule PO 10/31/19 17:10 HSP PRN SLEEP OR INSOMNIA Torsemide 40 mg 10/27/19 20:00 10/27/19 20:01 Demadex 20 Mg Tablet PO 11/26/19 19:59 40 mg BID@0800,2000 HAI Administration Impressions: Cervical Spine X-Ray 10/24/19 00:00 IMPRESSION: Degenerative disc disease and spondylosis. No acute finding. Chest X-Ray 10/24/19 00:00 IMPRESSION: Acute pleural and parenchymal opacities in the left base that could represent a combination of pleural fluid, atelectasis, and/or consolidation. Thoracic Spine X-Ray 10/24/19 00:00 IMPRESSION: No acute fracture or malalignment of the thoracic spine. Lumbar Spine CT 10/24/19 10:42 IMPRESSION: No acute fracture or malalignment of the lumbar spine. Head CT 10/24/19 10:43 IMPRESSION: 1. New area of hypoattenuation within the left cerebellar hemisphere (image 12 of series 2). Correlate with MRI to exclude an acute infarct. 2. Chronic areas of encephalomalacia and gliosis in the right frontal and left occipital lobes. Assessment & Plan - Diagnosis (1) CVA (cerebral vascular accident) Qualifiers: CVA mechanism: unspecified Qualified Code(s): I63.9 - Cerebral infarction, unspecified Is this a current diagnosis for this admission?: Yes Plan: management per primary team (2) NYHA class 3 systolic congestive heart failure with reduced left ventricular function Is this a current diagnosis for this admission?: Yes Plan: Continues with good output, down 1kg today. bp stable systolic high 90s - low 100s. - continue po torsemide (spoke with nurse regarding medication adjustments) - torsemide was to be given around 10am; this dose will be held and toprol xl / aldactone 12.5mg given - torsemide to be given at 2pm; then dosing will be 6a/2p - K 4.2 today; holding K replacement with addition of aldactone - repeat BMP / Mg tomorrow still low at 1.7 today - reviewed outpatient documentation and medications; was not taking lolis-i / arb or ARNI at home due to tenuous bp. Monitor vitals / labs with addition of aldactone today and we will consider the addition of 2.5mg lisinopril depending on his stability - continue his other guideline directed therpay as tolerated per his home regimen - continue strict i/o's, Na restricted diet, daily standing (if possible) weights (3) Cardiomyopathy Qualifiers: Cardiomyopathy type: ischemic Qualified Code(s): I25.5 - Ischemic cardiomyopathy Is this a current diagnosis for this admission?: Yes Plan: Severely reduced LVEF, ischemic CM - Denies angina at this time. Tele v-paced, 8sec NSVT 4am, asx. - Bi-V ICD, pacer functioning properly with h/o avn ablation. - plan per above (4) Hypomagnesemia Is this a current diagnosis for this admission?: Yes Plan: - 1.6 -->1.7 today; continue replacement and f/u Mag levels (5) Hypokalemia Is this a current diagnosis for this admission?: Yes Plan: - stop KCl replacement today as K 4.2 and aldactone added - repeat BMP tomorrow (6) Atrial fibrillation Qualifiers: Atrial fibrillation type: permanent Qualified Code(s): I48.21 - Permanent atrial fibrillation Is this a current diagnosis for this admission?: Yes Plan: - h/o avn ablation and bi-v icd - conintue current a/c and bb (7) Coronary artery disease Qualifiers: Coronary Disease-Associated Artery/Lesion type: bypass graft, autologous artery Associated angina: without angina Qualified Code(s): I25.810 - Atherosclerosis of coronary artery bypass graft(s) without angina pectoris Is this a current diagnosis for this admission?: Yes Plan: h/o ICM, s/p CABG - No active ischemia noted this admission - continue his current medical regimen per above. - Notes Notes: Pt pending placement. Please call the office with questions / concerns regarding this patient. Thank you for the consultation.
[2019-10-28] MEDS: TORSEMIDE 20 MG TABLET PO SCH (09:44)
[2019-10-28] MEDS: POTASSIUM CHLORIDE 10 MEQ TABLET.ER PO SCH (09:45)
[2019-10-28] MEDS: METOPROLOL SUCCINATE 25 MG TAB.SR.24H PO SCH (09:46)
[2019-10-28] MEDS ORDERED: SPIRONOLACTONE 25 MG TABLET PO SCH (10:00)
[2019-10-28] MEDS: ASPIRIN 81 MG TABLET, CHEWABLE PO SCH (10:47)
[2019-10-28] MEDS: MAGNESIUM OXIDE 400 MG TABLET PO SCH (10:48)
[2019-10-28] MEDS: ALLOPURINOL 100 MG TABLET PO SCH (10:48)
[2019-10-28] MEDS: APIXABAN 5 MG TABLET PO SCH (10:48)
--- NOTE | 2019-10-28 12:49 | PDOC TRANSFER SUMMARY ---
Impression - Admit/DC Date/PCP Admission Date/Primary Care Provider: 10/24/19 18:53 EDNA COLON MD Discharge Date: 10/28/19 - Assessment Summary: Patient was admitted to the hospital on the after falling backwards and striking his head. She has had this happen to him before. Patient does not recall if he was dizzy lightheaded or had any chest pain. She has a sofa inspector Dr. Colon who preferred that the patient be admitted to [facility] however the patient was not accepted for transfer. Patient was admitted to [facility] and has had no cardiac events since admission Patient CBC has been stable since admission white count 5.8 hemoglobin 10.7 hematocrit 32.1 platelets 220,000 On admission sodium was 132 potassium 3.3 BUN of 20 creatinine 0.75 magnesium stable at 2.0 lactic acid on admission was normal 1.5 [place] since admission has drifted down slightly to 1.6 however today it is 1.7 Days sodium is 133 potassium 4.2 BUN of 19 creatinine 0.77 Urinalysis is negative x2 Blood culture shows no growth in 96 hours Test x-ray on admission showed acute pleural and parenchymal opacities in the left base that could represent a combination of either pleural fluid, atelectasis, and/or consolidation, atelectasis, and or consolodation. Ekg on admission showed Afib/flutter and V paced complexes. Patient was found to have a new area of hypoattenuation within the left cerebellar hemisphere. Also chronic areas of encephalomalacia and gliosisi in the Right frontal and left occipital lobes. Plan per Cardiology is to continue Torsemide At 0600 and `1400 Hold K replacement, start Aldactone 12.5 mg daily Check Mag levels. Monitor BMP I& O's Possible add Lisinopril 2.5mg daily Patient is stable for transfer to [facility], with weekly labs and follow up with PCP and Cardiology in 5-7 days. - Additional Information Resuscitation Status: Full Code Discharge Diet: Cardiac, Diabetic Discharge Activity: Activity As Tolerated, Balance Activity w/Rest, Weigh Daily Referrals: EDNA COLON MD [Primary Care Provider] - Follow up as needed Prescriptions: Spironolactone [Aldactone 25 mg Tablet] 12.5 mg PO DAILY 60 Days #30 tablet Torsemide [Demadex 20 mg Tablet] 40 mg PO BID@0800,2000 60 Days #120 tablet Atorvastatin Calcium [Lipitor 80 mg Tablet] 80 mg PO QHS 30 Days #30 tablet Home Medications: Apixaban [Eliquis 5 mg Tablet] 5 mg PO Q12 10/24/19 Levothyroxine Sodium [Synthroid 0.075 mg Tablet] 0.075 mg PO Q6AM 10/24/19 Magnesium Oxide [Mag-Ox 400 mg Tablet] 800 mg PO DAILY 10/24/19 Metoprolol Succinate [Toprol Xl 25 mg Tab.sr] 12.5 mg PO DAILY 10/24/19 Pantoprazole Sodium [Protonix [address] Tablet] 40 mg PO QAM 10/24/19 Acetaminophen [Tylenol 325 mg Tablet] 650 mg PO Q4HP PRN tablet 10/28/19 Allopurinol [Zyloprim 100 mg Tablet] 100 mg PO DAILY tablet 10/28/19 Apixaban [Eliquis 5 mg Tablet] 5 mg PO BID tablet 10/28/19 Aspirin [Aspirin 81 mg Chewable Tablet] 81 mg PO DAILY tab.chew 10/28/19 Atorvastatin Calcium [Lipitor 80 mg Tablet] 80 mg PO QHS 30 Days #30 tablet 10/28/19 Pantoprazole Sodium [Protonix [address] Tablet] 40 mg PO BID@0600,1700 tablet.dr 10/28/19 Spironolactone [Aldactone 25 mg Tablet] 12.5 mg PO DAILY 60 Days #30 tablet 10/28/19 Torsemide [Demadex 20 mg Tablet] 40 mg PO BID@0800,1999 60 Days #120 tablet 10/28/19 History of Present Illiness History of Present Illness: SJ REYES is a 59 year old male Physical Exam Vital Signs: Temp Pulse Resp BP Pulse Ox 97.2 F 119 H 17 98/62 L 98 10/28/19 11:17 10/28/19 11:17 10/28/19 11:17 10/28/19 11:17 10/28/19 11:17 Intake & Output 10/27/19 10/28/19 10/29/19 06:59 06:59 06:59 Intake Total 1243 1160 Output Total 0960 1950 Balance -1582 -790 Weight 68.7 kg 68 kg Results Laboratory Results: WBC 5.2 10^3/uL (4.0-10.5) 10/28/19 04:18 RBC 4.00 10^6/uL (4.35-5.55) L 10/28/19 04:18 Hgb 10.5 g/dL (13.5-17.0) L 10/28/19 04:18 Hct 31.0 % (37.9-51.0) L 10/28/19 04:18 MCV 78 fl (80-97) L 10/28/19 04:18 MCH 26.3 pg (27.0-33.4) L 10/28/19 04:18 MCHC 33.9 g/dL (32.0-36.0) 10/28/19 04:18 RDW 18.9 % (11.5-14.0) H 10/28/19 04:18 Plt Count 197 10^3/uL (150-450) 10/28/19 04:18 Lymph % (Auto) 13.2 % (13-45) 10/25/19 06:22 Bailey % (Auto) 11.2 % (3-13) 10/25/19 06:22 Eos % (Auto) 2.3 % (0-6) 10/25/19 06:22 Baso % (Auto) 1.4 % (0-2) 10/25/19 06:22 Absolute Neuts (auto) 4.3 10^3/uL (1.7-8.2) 10/25/19 06:22 Absolute Lymphs (auto) 0.8 10^3/uL (0.5-4.7) 10/25/19 06:22 Absolute Monos (auto) 0.7 10^3/uL (0.1-1.4) 10/25/19 06:22 Absolute Eos (auto) 0.1 10^3/uL (0.0-0.6) 10/25/19 06:22 Absolute Basos (auto) 0.1 10^3/uL (0.0-0.2) 10/25/19 06:22 Seg Neutrophils % 71.9 % (42-78) 10/25/19 06:22 PT 15.4 SEC (11.4-15.4) 10/25/19 06:22 INR 1.21 10/25/19 06:22 VBG pH 7.41 (7.30-7.42) 10/24/19 11:11 VBG pCO2 53.4 mmHg (35-63) 10/24/19 11:11 VBG HCO3 32.8 mmol/L (20-32) H 10/24/19 11:11 VBG Base Excess 6.7 mmol/L 10/24/19 11:11 Sodium 133.0 mmol/L (137-145) L 10/28/19 04:18 Potassium 4.2 mmol/L (3.6-5.0) 10/28/19 04:18 Chloride 88 mmol/L (98-107) L 10/28/19 04:18 Carbon Dioxide 35 mmol/L (22-30) H 10/28/19 04:18 Anion Gap 10 (5-19) 10/28/19 04:18 BUN 19 mg/dL (7-20) 10/28/19 04:18 Creatinine 0.77 mg/dL (0.52-1.25) 10/28/19 04:18 Est GFR ( Amer) > 60 (>60) 10/28/19 04:18 Est GFR (MDRD) Non-Af > 60 (>60) 10/28/19 04:18 Glucose 82 mg/dL (75-110) 10/28/19 04:18 Lactic Acid 1.5 mmol/L (0.7-2.1) 10/24/19 15:15 Calcium 9.5 mg/dL (8.4-10.2) 10/28/19 04:18 Magnesium 1.7 mg/dL (1.6-2.3) 10/28/19 04:18 Total Bilirubin 2.2 mg/dL (0.2-1.3) H 10/25/19 06:22 Direct Bilirubin 1.2 mg/dL (0.0-0.4) H 10/25/19 06:22 Neonat Total Bilirubin Not Reportable 10/25/19 06:22 Neonat Direct Bilirubin Not Reportable 10/25/19 06:22 Neonat Indirect Bili Not Reportable 10/25/19 06:22 AST 30 U/L (17-59) 10/25/19 06:22 ALT 17 U/L (<50) 10/25/19 06:22 Alkaline Phosphatase 127 U/L (38-126) H 10/25/19 06:22 Troponin I 0.028 ng/mL 10/24/19 08:51 NT-Pro-B Natriuret Pep 6220 pg/mL (<125) H 10/24/19 08:51 Total Protein 5.8 g/dL (6.3-8.2) L 10/25/19 06:22 Albumin 3.0 g/dL (3.5-5.0) L 10/25/19 06:22 Triglycerides 68 mg/dL (<150) 10/25/19 06:22 Cholesterol 106.49 mg/dL (0-200) 10/25/19 06:22 LDL Cholesterol Direct 83 mg/dL (<100) 10/25/19 06:22 VLDL Cholesterol 14.0 mg/dL (10-31) 10/25/19 06:22 HDL Cholesterol 25 mg/dL (>40) L 10/25/19 06:22 Urine Color YELLOW 10/27/19 01:21 Urine Appearance CLEAR 10/27/19 01:21 Urine pH 8.0 (5.0-9.0) 10/27/19 01:21 Ur Specific [place] 1.006 10/27/19 01:21 Urine Protein NEGATIVE mg/dL (NEGATIVE) 10/27/19 01:21 Urine Glucose (UA) NEGATIVE mg/dL (NEGATIVE) 10/27/19 01:21 Urine Ketones NEGATIVE mg/dL (NEGATIVE) 10/27/19 01:21 Urine Blood NEGATIVE (NEGATIVE) 10/27/19 01:21 Urine Nitrite NEGATIVE (NEGATIVE) 10/27/19 01:21 Urine Bilirubin NEGATIVE (NEGATIVE) 10/27/19 01:21 Urine Urobilinogen NEGATIVE mg/dL (<2.0) 10/27/19 01:21 Ur Leukocyte Esterase NEGATIVE (NEGATIVE) 10/27/19 01:21 Urine WBC (Auto) 0 /HPF 10/27/19 01:21 Urine Mucus (Auto) RARE /LPF 10/27/19 01:21 Urine Ascorbic Acid NEGATIVE (NEGATIVE) 10/27/19 01:21 Serum Alcohol < 10 mg/dL (NONE DETECTED) 10/24/19 08:51 10/24/19 10/24/19 08:51 08:51 Troponin I 0.028 NT-Pro-B Natriuret Pep 6220 H Impressions: Cervical Spine X-Ray 10/24/19 00:00 IMPRESSION: Degenerative disc disease and spondylosis. No acute finding. Chest X-Ray 10/24/19 00:00 IMPRESSION: Acute pleural and parenchymal opacities in the left base that could represent a combination of pleural fluid, atelectasis, and/or consolidation. Thoracic Spine X-Ray 10/24/19 00:00 IMPRESSION: No acute fracture or malalignment of the thoracic spine. Lumbar Spine CT 10/24/19 10:42 IMPRESSION: No acute fracture or malalignment of the lumbar spine. Head CT 10/24/19 10:43 IMPRESSION: 1. New area of hypoattenuation within the left cerebellar hemisphere (image 12 of series 2). Correlate with MRI to exclude an acute infarct. 2. Chronic areas of encephalomalacia and gliosis in the right frontal and left occipital lobes. Stroke Is this a Stroke Patient?: Yes Stroke Pt being discharged on Anti-thrombolytic therapy?: Yes Stroke Pt being discharged on Anti-coagulation therapy?: Yes Stroke Pt being discharged on Statins?: Yes Acute Heart Failure - Is this a Heart Failure Patient?: Yes Documentation of LVEF assessment?: Yes LVEF < 40%?: Yes-if yes answer questions a through e a) Discharged on ACEI?: Yes Reason(s) not discharge on ACEI: Impaied/worsening renal function b) Discharges on ARB?: No-document contraindications Reason(s) not discharged on ARB: Impaired/worsening renal functions c) Discharged on ARNI?: No-Document Contraindications Reason(s) not discharged on ARNI: Hyperkalemia d) Discharged on evidence-based Beta eric(carvedilol, sustained release metoprolol succinate, or bisoprolol)?: Yes e) For LVEF <35%, discharged on Aldosterone antagonist?: Yes 3. Anticoagulant therapy for permanect/persistent/paraoxysmal Afib or Aflutter: Yes Follow-up Appointment scheduled within 7 days?: Yes
[2019-10-28 16:22] VITALS: BP 104/62
== END 2019-10-28 16:45 | DRG 65 ==
LOC: ER 08:23 → UNDOADMIN 14:29 → EH 14:29 → 3N 19:16
PROVIDERS: ADMIT Internal Medicine; ATTEND Internal Medicine
DX: I63.542 Cerebral infarction due to unspecified occlusion or stenosis of left cerebellar artery (principal); E87.1 Hypo-osmolality and hyponatremia; I50.22 Chronic systolic (congestive) heart failure; I25.810 Atherosclerosis of coronary artery bypass graft(s) without angina pectoris; I48.21 Permanent atrial fibrillation; I43 Cardiomyopathy in diseases classified elsewhere; I63.89 Other cerebral infarction; E87.6 Hypokalemia; I11.0 Hypertensive heart disease with heart failure; I50.9 Heart failure, unspecified; E11.9 Type 2 diabetes mellitus without complications; Z95.1 Presence of aortocoronary bypass graft; I25.2 Old myocardial infarction; M10.9 Gout, unspecified; Z82.49 Family history of ischemic heart disease and other diseases of the circulatory system; Z79.01 Long term (current) use of anticoagulants; Z79.899 Other long term (current) drug therapy; Z88.0 Allergy status to penicillin; Z88.8 Allergy status to other drugs, medicaments and biological substances; I95.9 Hypotension, unspecified; E83.42 Hypomagnesemia; Z95.810 Presence of automatic (implantable) cardiac defibrillator; M25.561 Pain in right knee; W22.8XXA Striking against or struck by other objects, initial encounter; Y92.002 Bathroom of unspecified non-institutional (private) residence as the place of occurrence of the external cause
CPT/HCPCS: 36415; 70450; 71045; 72040; 72070; 72131; 80048; 80053; 80061; 80307; 81001; 82803; 83605; 83735; 83880; 84484; 85025; 85027; 85610; 87040; 93005; 93010; 96361; 96374; 99291; 99292; J1644; J1650; J1940; J3010; J3480; J3490

== ENCOUNTER 2019-11-23 10:32 | Emergency (ER) | payer MEDICARE ==
[2019-11-23] MEDS: DEXTROSE 5%-WATER 250 ML with NOREPINEPHRINE BITARTRATE 4 MG IV PRN ×4 (10:55→17:08)
[2019-11-23] MEDS ORDERED: NORMAL SALINE 250 ML IV PRN ×3 (11:03→17:39)
--- NOTE | 2019-11-23 11:03 | ER Document Report ---
ED General - General Chief Complaint: Blood Pressure Problem Stated Complaint: BLOOD PRESSURE PROBLEM Primary Care Provider: JOSÉ MIGUEL BROUSSARD PA [Primary Care Provider] - Follow up as needed Mode of Arrival: Medic Information source: Emergency Med Personnel Notes: 59-year-old man presents to the emergency department with a history of found unresponsive by the fdc staff this morning. He was given a milligram of glucagon for a blood sugar of 64 patient did not respond EMS was called to the facility patient was found to be pale unresponsive and a blood pressure of 46 over Pap. They began bagging the patient place an IO in the right tibia the O2 sat went from 74% to 94%, he was given Levophed through the with a blood pressure improvement from 46 systolic to 125 systolic. Upon arrival to the emergency department a cool, jaundice and icteric man poorly responsive and low O2 sat. It is noted that the patient has a cardiomyopathy with a 10 to 15% EF and is a transplant patient and waiting. History of essential hypertension, cerebral infarct, coronary artery bypass graft surgery, pulmonary hypertension, pacemaker/AICD, thyroid disease with a history of thyrotoxicosis in the past, chronic cyst systolic congestive heart failure, GERD, type 2 diabetes mellitus and osteoarthritis. TRAVEL OUTSIDE OF THE [place] IN LAST 30 DAYS: No - Related Data Allergies/Adverse Reactions: Penicillins Allergy (Verified 11/23/19 10:35) trazodone Allergy (Verified 11/23/19 10:35) zolpidem [From Ambien] Allergy (Verified 11/23/19 10:35) Past Medical History - Social History Smoking Status: Unknown if Ever Smoked Family History: Reviewed & Not Pertinent, Hypertension, Malignancy Patient has suicidal ideation: No Patient has homicidal ideation: No - Past Medical History Cardiac Medical History: Reports: Hx Atrial Fibrillation, Hx Congestive Heart Failure, Hx Coronary Artery Disease, Hx Heart Attack, Hx Hypercholesterolemia, H x Hypertension Neurological Medical History: Denies: Hx Seizures Endocrine Medical History: Reports: Hx Diabetes Mellitus Type 2 Renal/ Medical History: Denies: Hx Peritoneal Dialysis Musculoskeletal Medical History: Reports Hx Gout Psychiatric Medical History: Denies: Hx Depression Past Surgical History: Reports: Hx Cardiac Surgery - bypass/ppm/aicd/ablation, Hx Coronary Artery Bypass Graft, Hx Pacemaker - w/ defib - Immunizations Immunizations up to date: Yes Hx Diphtheria, Pertussis, Tetanus Vaccination: Yes Hx Pneumococcal Vaccination: 05/28/14 Review of Systems - Review of Systems -: Yes ROS unobtainable due to patient's medical condition - Patient is unable to give history or reliable information due to confusion Physical Exam - Vital signs Vitals: Pulse Ox 88 L 11/23/19 10:35 - Notes Notes: PHYSICAL EXAMINATION: Physical Exam: General: Poorly responsive jaundice, icteric 59-year-old man lying on a stretcher with closed HEENT: NC/AT, pupils equal round and reactive to light, MM moist,nares clear, + icteric Neck: supple, no adenopathy, no masses. Lungs: clear, no wheezing, + rales, no CVS: Regular rate and rhythm no murmur gallop or rub Abdomen: Soft active, + tenderness in the mid abdominal region, no masses, no hepatosplenomegaly Ext: 2+ lower extremity edema, clubbing or cyanosis. Neuro: Poorly responsive, no obvious focal neurologic abnormalities.. Skin: Diffuse jaundice, no obvious breakdown Course - Re-evaluation Re-evalutation: 11/23/19 14:20 Patient was transfused 2 units of O negative blood, bright red blood per rectum and hypotension. Patient's extremities are very cool and he is unresponsive. Lab review reveals a elevated WBC 23.7 H&H 14/42, temp 92.4. A warming blanket and a sepsis evaluation ensued. Lactate 4.0, patient is given approximately 1 L of fluid given his ejection fraction of 10 to 15%, cardiomyopathy, pacemaker a ICD, sepsis fluids at 30 mL/kg were withheld at this time. Patient's creatinine also noted to be elevated 2.6, previous value was 1.6. Antibiotics vancomycin and aztreonam was given. Transfer note: I discussed patient with the instrumentation and controls designer at [facility] Dr. Denson, he will assess the patient in transfer and will consider air transport based upon no weather. Patient is begun on Protonix and Protonix dri p, repeat troponin is being done and will continue to titrate Levophed to a systolic blood pressure of 90 or greater. I did talk with the patient and explained that he has been accepted in transfer and that he will be going to [facility]. - Vital Signs Vital signs: Temp Pulse Resp BP Pulse Ox 92.4 F L 60 21 H 72/25 L 97 11/23/19 12:46 02/16/20 12:46 11/23/19 12:46 11/23/19 12:46 11/23/19 12:46 - Laboratory Result Diagrams: 11/23/19 10:54 11/23/19 10:54 Laboratory results interpreted by me: 11/23/19 11/23/19 11/23/19 10:54 10:54 10:54 WBC 23.7 H D RDW 23.7 H Seg Neuts % (Manual) 90 H Lymphocytes % (Manual) 4 L Abs Neuts (Manual) 21.3 H PT APTT Carbonic Acid ABG pH ABG pCO2 ABG pO2 ABG HCO3 ABG Total CO2 ABG O2 Saturation Sodium 123.4 L Chloride 92 L Carbon Dioxide 12 L BUN 40 H Creatinine 2.66 H Est GFR ( Amer) 30 L Est GFR (MDRD) Non-Af 25 L Lactic Acid 4.8 H Calcium 7.3 L Total Bilirubin 4.9 H Direct Bilirubin 4.1 H AST 319 H ALT 74 H Alkaline Phosphatase 410 H Creatine Kinase 537 H CK-MB (CK-2) Total Protein 5.1 L Albumin 2.2 L Lipase 392.9 H Crossmatch 11/23/19 11/23/19 11/23/19 10:54 10:54 10:54 WBC RDW Seg Neuts % (Manual) Lymphocytes % (Manual) Abs Neuts (Manual) PT 34.8 H APTT 81.7 H Carbonic Acid 0.60 L ABG pH 7.32 L ABG pCO2 20.0 L* ABG pO2 274.8 H ABG HCO3 10.2 L ABG Total CO2 10.8 L ABG O2 Saturation 99.6 H Sodium Chloride Carbon Dioxide BUN Creatinine Est GFR ( Amer) Est GFR (MDRD) Non-Af Lactic Acid Calcium Total Bilirubin Direct Bilirubin AST ALT Alkaline Phosphatase Creatine Kinase CK-MB (CK-2) 17.80 H Total Protein Albumin Lipase Crossmatch 11/23/19 11:40 WBC RDW Seg Neuts % (Manual) Lymphocytes % (Manual) Abs Neuts (Manual) PT APTT Carbonic Acid ABG pH ABG pCO2 ABG pO2 ABG HCO3 ABG Total CO2 ABG O2 Saturation Sodium Chloride Carbon Dioxide BUN Creatinine Est GFR ( Amer) Est GFR (MDRD) Non-Af Lactic Acid Calcium Total Bilirubin Direct Bilirubin AST ALT Alkaline Phosphatase Creatine Kinase CK-MB (CK-2) Total Protein Albumin Lipase Crossmatch See Detail - Diagnostic Test Radiology reviewed: Image reviewed - Chest x-ray 1 view: Cardiomegaly, pacemaker/AICD right upper chest wall, central line right internal jugular good position above the right atrium. - EKG Interpretation by La Rhythm: A.Fib - Ventricular paced rhythm Procedures - Central Line Right Internal jugular Time completed: 11:40 Consent obtained: Yes Central line pre-insertion: Sterile PPE donned, Betadine prep applied, Chloraprep applied, Sterile drapes applied Central line size (Fr.): 18 Central line lumen type: Triple Anesthetic type: 1% Lidocaine mL's of anesthesia: 3 Ultrasound guided: Yes - Observation of the needle piercing the internal jugular Line secured with sutures: Yes Central line post-insertion: Blood return from lumens, Biopatch applied, Sutured, Sterile dressing applied, Position confirmed w/ CXR Number of attempts: 1 Complications: No Discharge - Discharge Clinical Impression: Septic shock, Elevated troponin I level, CLEVE (acute kidney injury) GI bleed Qualifiers: GI bleed type/associated pathology: unspecified gastrointestinal hemorrhage type Qualified Code(s): K92.2 - Gastrointestinal hemorrhage, unspecified Cardiomyopathy Qualifiers: Cardiomyopathy type: unspecified Qualified Code(s): I42.9 - Cardiomyopathy, unspecified Atrial fibrillation Qualifiers: Atrial fibrillation type: unspecified Qualified Code(s): I48.91 - Unspecified atrial fibrillation Condition: Serious Disposition: [facility] Referrals: JOSÉ MIGUEL BROUSSARD PA [Primary Care Provider] - Follow up as needed
[2019-11-23 11:15] LABS: ARTERIAL BLOOD BASE EXCESS -13.6 mmol/L; ARTERIAL BLOOD HCO3 10.2 mmol/L (20-24); ARTERIAL BLOOD O2 SATURATION 99.6 % (94-98); ARTERIAL BLOOD PH 7.32 (7.35-7.45); ARTERIAL BLOOD PO2 274.8 mmHg (80-100); ARTERIAL BLOOD TOTAL CO2 10.8 mmol/L (23-27)
[2019-11-23 11:16] LABS: ARTERIAL BLOOD FIO2 ROOM AIR
[2019-11-23 11:20] LABS: HEMATOCRIT 43.7 % (37.9-51.0); PLATELET COUNT 173 10^3/uL (150-450); RED CELL DISTRIBUTION WIDTH 23.7 % (11.5-14.0)
[2019-11-23 11:21] LABS: INTERNATIONAL RATION (INR) 3.37; PROTHROMBIN TIME 34.8 SEC (11.4-15.4)
[2019-11-23 11:23] LABS: PARTIAL THROMBOPLASTIN TIME 81.7 SEC (23.5-35.8)
[2019-11-23 11:40] LABS: ALBUMIN 2.2 g/dL (3.5-5.0); ALKALINE PHOSPHATASE 410 U/L (38-126); ANION GAP 19 (5-19); ASPARTATE AMINO TRANSFERASE 319 U/L (17-59); BILIRUBIN,DIRECT 4.1 mg/dL (0.0-0.4); BILIRUBIN,TOTAL 4.9 mg/dL (0.2-1.3); BLOOD UREA NITROGEN 40 mg/dL (7-20); CALCIUM 7.3 mg/dL (8.4-10.2); CARBON DIOXIDE 12 mmol/L (22-30); CHLORIDE 92 mmol/L (98-107); CREATINE KINASE 537 U/L (55-170); GLUCOSE 82 mg/dL (75-110); POTASSIUM 4.9 mmol/L (3.6-5.0); TOTAL PROTEIN 5.1 g/dL (6.3-8.2)
[2019-11-23 11:47] LABS: CREATINE KINASE MB 17.8 ng/mL (<4.55)
[2019-11-23 11:48] LABS: TROPONIN I 0.204 ng/mL
[2019-11-23 12:00] LABS: MEAN CORPUSCULAR HGB CONC 33.6 g/dL (32.0-36.0); MEAN CORPUSCULAR VOLUME 86 fl (80-97)
[2019-11-23 12:01] LABS: HEMOGLOBIN 14.7 g/dL (13.5-17.0); MEAN CORPUSCULAR HEMOGLOBIN 28.8 pg (27.0-33.4)
--- NOTE | 2019-11-23 12:02 | RADIOLOGY REPORT (SQ) ---
EXAM DESCRIPTION: CHEST SINGLE VIEW COMPLETED DATE/TIME: 11/23/2019 11:50 am REASON FOR STUDY: Shortness of breath COMPARISON: 10/24/2019. EXAM PARAMETERS: NUMBER OF VIEWS: One view. TECHNIQUE: Single frontal radiographic view of the chest acquired. RADIATION DOSE: NA LIMITATIONS: None. FINDINGS: LUNGS AND PLEURA: Indistinct airspace disease in the left lung base with left pleural effu krissy. Right lung clear. No pneumothorax. MEDIASTINUM AND HILAR STRUCTURES: No masses. Contour normal. HEART AND VASCULAR STRUCTURES: Defibrillator, sternotomy wires, and coronary bypass markers. Central venous catheter, tip located at the level of the superior vena cava. BONES: No acute findings. HARDWARE: None in the chest. OTHER: No other significant finding. IMPRESSION: INDISTINCT AIRSPACE DISEASE IN THE LEFT LUNG BASE WITH LEFT PLEURAL EFFUSION. SIMILAR A PPEARANCE ON THE PRIOR STUDY. NO OTHER SIGNIFICANT FINDINGS. TECHNICAL DOCUMENTATION: JOB ID: [id number] 2010 [email or web address].- All Rights Reserved Reading location - IP/workstation name: [email or web address]
[2019-11-23 12:17] LABS: ABSOLUTE LYMPHOCYTES# (MANUAL) 0.9 10^3/uL (0.5-4.7); ABSOLUTE MONOCYTES # (MANUAL) 1.4 10^3/uL (0.1-1.4); BASOPHILS % (MANUAL) 0 % (0-2); EOSINOPHILS % (MANUAL) 0 % (0-6); LYMPHOCYTES % (MANUAL) 4 % (13-45); MONOCYTES % (MANUAL) 6 % (3-13); SEGMENTED NEUTROPHILS % (MAN) 90 % (42-78); TOTAL CELLS COUNTED 100
[2019-11-23 12:19] LABS: ANISOCYTOSIS 3+; BURR CELLS 2+; PLATELET COMMENT ADEQUATE; POLYCHROMASIA SLIGHT; TOXIC GRANULATION 1+; WHITE BLOOD COUNT 23.7 10^3/uL (4.0-10.5)
[2019-11-23] MEDS ORDERED: VANCOMYCIN HCL 0 MG in DEXTROSE 5%-WATER 250 ML IV NR (13:45)
[2019-11-23] MEDS ORDERED: AZTREONAM 1 GM in DEXTROSE 5%-WATER 50 ML IV SCH (14:00)
[2019-11-23] MEDS ORDERED: PANTOPRAZOLE SODIUM 40 MG VIAL IV ONE (14:15)
[2019-11-23] MEDS ORDERED: PANTOPRAZOLE SODIUM 40 MG VIAL IV PRN (14:16)
[2019-11-23] MEDS ORDERED: NORMAL SALINE 250 ML IV ONE ×2 (15:35→17:55)
[2019-11-23] MEDS ORDERED: NOREPINEPHRINE BITARTRATE INJ/PF 4 MG/4 ML SDV IV ONE (16:55)
[2019-11-23] MEDS ORDERED: VANCOMYCIN HCL 1,500 MG in DEXTROSE 5%-WATER 250 ML IV ONE (17:00)
--- NOTE | 2019-11-23 17:59 | EKG REPORT ---
SEVERITY:- ABNORMAL ECG - AFIB/FLUTTER AND VENTRICULAR-PACED RHYTHM : Confirmed by: Zachery Mejia MD 23-Nov-2019 17:58:36
[2019-11-23 18:05] LABS: HEMATOCRIT 47.6 % (37.9-51.0); MEAN CORPUSCULAR HGB CONC 31.6 g/dL (32.0-36.0); MEAN CORPUSCULAR VOLUME 85 fl (80-97); RED BLOOD COUNT 5.58 10^6/uL (4.35-5.55); RED CELL DISTRIBUTION WIDTH 21.5 % (11.5-14.0); WHITE BLOOD COUNT 24.8 10^3/uL (4.0-10.5)
[2019-11-23 18:23] LABS: PLATELET COUNT 120 10^3/uL (150-450)
[2019-11-23] MEDS ORDERED: EPINEPHRINE INJ/PF 1 MG/1 ML AMPULE ONE (18:32)
[2019-11-23] MEDS ORDERED: EPINEPHRINE INJ 1 MG/10 ML DISP.SYRIN ONE (18:34)
[2019-11-23 18:47] VITALS: BP 48/38
== END 2019-11-23 19:02 | disposition short-term general hospital (02) ==
LOC: ER 10:32
PROC: 05HM33Z Insertion of Infusion Device into Right Internal Jugular Vein, Percutaneous Approach (ICD-10-PCS; principal; 2019-11-23)
DX: R65.21 Severe sepsis with septic shock (principal); N17.9 Acute kidney failure, unspecified; I42.9 Cardiomyopathy, unspecified; I48.91 Unspecified atrial fibrillation; K92.2 Gastrointestinal hemorrhage, unspecified; I50.9 Heart failure, unspecified; I11.0 Hypertensive heart disease with heart failure; E11.9 Type 2 diabetes mellitus without complications; R19.5 Other fecal abnormalities; Z88.0 Allergy status to penicillin; Z88.8 Allergy status to other drugs, medicaments and biological substances
CPT/HCPCS: 36556; 93005; 96376; 99285; 51702; 96375; 96365; 96366; 96368; 86900; 86901; 36415; 87040; 82553; 36430; 86850; 82803; 82550; 83605; 83690; 85025; 85610; 85730; 80053; 84484; 86920; 71045; 93010; P9016; J0171; J3490 ×2; C9113; J7060 ×2; J7050; J3370